=== PATIENT | male | born 1950 | race Caucasian/White ===

== ENCOUNTER → 2016-07-20 | Outpatient (CLI) | payer MEDICARE, BC ==
[2016-07-20 11:48] LABS: Basophils % (A) 0 %; CH 29.9; CHCM 33.5; Eosinophils # (A) 0.3 k/uL (0-0.7); Eosinophils % (A) 3 %; HCT 51.4 % (39.0-53.0); HDW 2.48; HGB 16.9 gm/dL (13.0-17.5); Luc # (Auto) 0.23; Luc % (Auto) 2; Lymphocytes % (A) 30 %; MCH 29.6 pg (25.0-35.0); MCV 89.8 fL (80.0-100.0); Mean Platelet Volume 6.5; Monocytes # (A) 0.6 k/uL (0-1.0); Monocytes % (A) 6 %; Neutrophils # (A) 5.8 k/uL (1.3-7.7); Neutrophils % (A) 58 %; RBC 5.73 m/uL (4.30-5.90); RDW 12.7 % (11.5-15.5); WBC (Perox) 10.12
[2016-07-20 12:00] LABS: ALT 40 U/L (21-72); AST 19 U/L (17-59); Alkaline Phosphatase 65 U/L (38-126); Anion Gap 9 mmol/L; Blood Urea Nitrogen 16 mg/dL (9-20); Calcium 9.5 mg/dL (8.4-10.2); Carbon Dioxide 24 mmol/L (22-30); Chloride 106 mmol/L (98-107); Glucose 134 mg/dL (74-99); Non-African American GFR(MDRD) >60 (>60 ml/min/1.73 sqM); Potassium 4.8 mmol/L (3.5-5.1); Sodium 139 mmol/L (137-145); Total Bilirubin 0.8 mg/dL (0.2-1.3); Total Protein 7.1 g/dL (6.3-8.2)
== END | disposition home or self-care (01) ==
LOC: LABWHC1 11:26
PROVIDERS: ATTEND Internal Medicine
DX: I10 Essential (primary) hypertension (principal)
CPT/HCPCS: 36415; 80053; 85025

== ENCOUNTER → 2016-08-06 | Outpatient (CLI) | payer MEDICARE, BC ==
[2016-08-06 15:35] LABS: ALT 35 U/L (21-72); AST 16 U/L (17-59); Cholesterol 209 mg/dL (<200); Glucose 106 mg/dL (74-99); HDL Cholesterol 42 mg/dL (40-60); Triglycerides 175 mg/dL (<150)
== END ==
LOC: LABWHC1 14:48
PROVIDERS: ATTEND Internal Medicine
DX: I25.10 Atherosclerotic heart disease of native coronary artery without angina pectoris (principal)
CPT/HCPCS: 36415; 80061; 82947; 84450; 84460

== ENCOUNTER → 2016-10-01 | Outpatient (CLI) | payer MEDICARE, BC ==
[2016-10-01 12:18] LABS: ALT 47 U/L (21-72); AST 24 U/L (17-59); Cholesterol 145 mg/dL (<200); Glucose 105 mg/dL (74-99); HDL Cholesterol 37 mg/dL (40-60); Triglycerides 206 mg/dL (<150)
== END | disposition home or self-care (01) ==
LOC: LABWHC1 11:21
PROVIDERS: ATTEND Internal Medicine
DX: I10 Essential (primary) hypertension (principal)
CPT/HCPCS: 36415; 80061; 82947; 84450; 84460

== ENCOUNTER → 2017-07-23 | Outpatient (CLI) | payer MEDICARE, BC ==
[2017-07-23 11:47] LABS: Cholesterol 187 mg/dL (<200); HDL Cholesterol 41 mg/dL (40-60); LDL Cholesterol,Calculated 104 mg/dL (0-99); Triglycerides 212 mg/dL (<150)
== END | disposition home or self-care (01) ==
LOC: LABWHC1 11:01
PROVIDERS: ATTEND Internal Medicine
DX: I25.110 Atherosclerotic heart disease of native coronary artery with unstable angina pectoris (principal)
CPT/HCPCS: 36415; 80061

== ENCOUNTER → 2019-04-30 | Outpatient (CLI) | payer MEDICARE, BC ==
[2019-04-30 18:22] LABS: ALT 22 U/L (10-49); AST 17 U/L (14-35); Albumin/Globulin Ratio 2.05 (1.60-3.17); Alkaline Phosphatase 66 U/L (41-126); Bilirubin, Conjugated <0.20 mg/dL (0.20-0.40); Chol/HDL Ratio 3.86; Cholesterol 108 mg/dL (0-200); Globulin 1.9 g/dL (1.6-3.3); LDL Cholesterol,Calculated 56.6 mg/dL (0.0-131.0); Total Bilirubin 0.3 mg/dL (0.3-1.2); Total Protein 5.8 g/dL (6.2-8.2)
== END ==
LOC: LABWHC1 12:05
PROVIDERS: ATTEND Internal Medicine
DX: I25.110 Atherosclerotic heart disease of native coronary artery with unstable angina pectoris (principal); Z95.2 Presence of prosthetic heart valve
CPT/HCPCS: 36415; 80061; 80076

== ENCOUNTER → 2020-12-25 | Outpatient (CLI) | payer MEDICARE, BC ==
--- NOTE | 2020-12-25 21:58 | CT ---
EXAMINATION TYPE: CT cervical spine wo con DATE OF EXAM: 12/25/2020 COMPARISON: None HISTORY: Neck pain x3 months CT DLP: 708.3 mGycm CONTRAST: None CT of the cervical spine is performed in the axial plane at 2 mm thick sections. Reconstructed image s in the coronal, and sagittal plane are reviewed on the computer. No acute fractures are evident. Vertebral body alignment is normal. Note is made of posterior longitudinal ligament calcification pos terior to the C4, C5 and C6 levels. Diffuse loss of disc height throughout the cervical spine. There is some more moderate narrowing of t he C5-6 C6-7 disc space. Vertebral body heights are preserved. No spinal canal stenosis is evident Facet hypertrophy is present at multiple levels. Uncovertebral joint hypertrophy is present throughout the cervical spine. At C2-3 level this has to s evere bilateral foraminal stenosis. Severe right and moderate to severe left foraminal stenosis prese nt at the C3-4 level. Severe right and moderate left C4-5 foraminal narrowing is present. Severe bila teral foraminal stenosis is present C5-6 and C6-7. IMPRESSIONS: 1. Severe foraminal stenosis due to uncovertebral joint hypertrophy at multiple levels discussed ab ove. 2 degenerative disc changes throughout the cervical spine greatest at C5-6 C6-7.
--- NOTE | 2020-12-25 22:01 | CT ---
EXAMINATION TYPE: CT thoracic spine wo con DATE OF EXAM: 12/25/2020 COMPARISON: None HISTORY: Back pain unspecified CT DLP: 1281.7 mGycm Automated exposure control for dose reduction was used. Contrast: None Technique: Axial images 3 mm thick sections. Reconstructed images in the coronal and sagittal plane. FINDINGS: Diffuse disc space narrowing is present. T7-T11 there is anterior vertebral spurring. There is a left paracentral endplate spur at T6 with mild anterior thecal sac compression. No AP spin al canal narrowing is evident. The vertebral body heights are preserved. There is slight exaggeration of the thoracic kyphosis. Scoliosis present with convexity to the right in the mid to upper thoracic spine. IMPRESSION: 1. MILD ENDPLATE SPURRING T6 WITH LEFT PARACENTRAL THECAL SAC COMPRESSION WITHOUT STENOSIS. 2. MULTILEVEL MILD DEGENERATIVE DISC HEIGHT LOSS. 3. MILD SCOLIOSIS AND KYPHOSIS
--- NOTE | 2020-12-25 22:10 | CT ---
EXAMINATION TYPE: CT lumbar spine wo con DATE OF EXAM: 12/25/2020 COMPARISON: None HISTORY: Back pain unspecified CT DLP: 1466.2 mGycm CONTRAST: None TECHNIQUE: CT of the lumbar spine is performed on a spiral scan at 3 mm thick sections. Reconstructed images are performed in the coronal and sagittal planes. FINDINGS: T12-L1: No focal disc herniation or significant disc bulge is evident. No spinal canal stenosis or neural foraminal stenosis is present. L1-L2: Broad-based disc bulge is present with moderate anterior thecal sac compression. No AP spinal canal stenosis present. Facet hypertrophy and some mild ligamentum flavum laxity is present. Some can al narrowing may be present. Severe left and right foraminal stenosis is present. L2-L3: Broad-based disc bulge is mild anterior thecal sac compression. Mild facet hypertrophy is pres ent. No spinal canal stenosis is present. Severe bilateral foraminal stenosis is present. L3-L4: Broad-based disc bulge is present. There is some narrowing of disc height. Anterior thecal sac flattening is present. No spinal canal stenosis is present. Severe foraminal narrowing is present bi laterally. Facet hypertrophy is present. L4-L5: There is narrowing through this disc level. Mild anterior thecal sac compression is present. F acet hypertrophy and congenitally short pedicles are present with ligamentum flavum laxity. This is c ontributing to severe spinal canal stenosis at this level. L5-S1: Residual disc bulge is not evident. Disc space narrowing is present. No spinal canal stenosis present. Severe foraminal narrowing is present. Vertebral alignment appears normal. There is a suggestion there may be a a abdominal aortic aneurysm. Within the archive within the field -of-view this measures at least 3.5 cm and may be slightly larger now. Additional evaluation with CT abdomen pelvis is recommended. IMPRESSION: 1. Abdominal aortic aneurysm is not excluded. Within the visualized portions this is at least 3.[address] abdomen and pelvis recommended for additional workup. 2. Degenerative disc changes with mild to moderate disc bulging discussed above. 3. Congenitally short pedicles disc bulging, ligamentum flavum laxity and facet hypertrophy at the L4 -5 levels contributing to severe spinal canal stenosis. 4. Some canal narrowing is also suspected to be present at the L1-2 level due to disc bulging and fac et hypertrophy. 5. Essentially severe foraminal stenosis throughout the lumbar spine due to residual disc bulge into the inferior foramen with congenitally short pedicles and facet hypertrophy throughout the lumbar spi ne.
== END | disposition home or self-care (01) ==
LOC: RADCTMAIN 06:26
PROVIDERS: ATTEND Family Medicine
DX: M48.061 Spinal stenosis, lumbar region without neurogenic claudication (principal); M51.26 Other intervertebral disc displacement, lumbar region; M51.36 Other intervertebral disc degeneration, lumbar region; M99.73 Connective tissue and disc stenosis of intervertebral foramina of lumbar region; M51.34 Other intervertebral disc degeneration, thoracic region; M50.323 Other cervical disc degeneration at C6-C7 level; M99.71 Connective tissue and disc stenosis of intervertebral foramina of cervical region; M47.816 Spondylosis without myelopathy or radiculopathy, lumbar region
CPT/HCPCS: 72125; 72128; 72131

== ENCOUNTER → 2021-01-09 | Outpatient (CLI) | payer MEDICARE, BC ==
--- NOTE | 2021-01-09 22:30 | CT ---
EXAMINATION TYPE: CT abdomen pelvis wo con DATE OF EXAM: 01/09/2021 COMPARISON: None HISTORY: 70-year-old male I71.4, abdominal aortic aneurysm. Back pain x6 months. CT DLP: 1295.5 mGycm. Automated exposure control for dose reduction was used. TECHNIQUE: Contiguous axial scanning of the abdomen and pelvis without IV contrast. Coronal and sagit sofie reconstructions performed. FINDINGS: Heart normal size without pericardial effusion. Some retained epicardial pacer leads are noted. Strea ky atelectasis at the posterior left lung base. Mild emphysematous change. Noncontrast appearance of the liver, gallbladder, adrenal glands, spleen, and pancreas show no gross abnormality by noncontrast CT. Several 1 cm cortical hypodensity medial left kidney too small for accurate CT characterization, prob able cyst. Extrarenal pelvis on the left. Some hilar vascular calcifications are noted. Right kidney shows some focal prominent cortical lobulations. These measure up to 1.6 cm lateral midp ole and 2.7 cm at the lower pole. Additional hypodense lesions at the lateral lower pole measure up to 2.3 and 1.3 cm, probable cysts b ut inadequately characterized on this noncontrast study. No dilated small bowel, free fluid, or free air. No mesenteric or retroperitoneal lymphadenopathy. Normal appendix. Oral contrast progressed to the cecum. There is mild to moderate stool burden. Redun dant sigmoid colon. No pericolonic inflammatory change. Moderate prostatic calcifications are present throughout the abdominal aorta and iliac arteries, more moderate to severe within the left common iliac artery. There is fusiform aneurysm infrarenal abdominal aorta measuring up to 4.5 cm. However, we note a thic kened aortic wall measuring up to 7 mm with mild periaortic strandy density and ill-definition. Patulous right greater than left inguinal canals. Moderate circumferential bladder wall thickening. P rostatomegaly of 5.2 cm wide. No abnormal fluid collection in the pelvis. Prominent right external il iac chain lymph nodes measures up to 1.1 cm, probably reactive/post inflammatory. Bones: Moderate degenerative change of the hips and left SI joint. Mild of the right SI joint. Baastr up's disease. Moderate degenerative disc disease L4-L5 and mild elsewhere throughout the lumbar spine . [facility] in the visualized lower thoracic spine. IMPRESSION: 1. Moderate atherosclerotic calcifications. More moderate to severe within the right common iliac ar katarzyna. In addition, there is an infrarenal AAA measuring up to 4.5 cm but we note a thickened wall wit h mild surrounding inflammation/fibrosis. Correlate for inflammatory AAA or autoimmune aortitis. Infe ctious aortitis considered less likely given the lack of air in the aortic wall. 2. Nonspecific right kidney lesions. Some of these may represent prominent cortical lobulations. Und erlying solid masses measuring up to 2.7 cm should be excluded. 3-6 month follow-up CT to ensure stab ility. 3. Prostatomegaly at 5.2 cm wide. Moderate circumferential bladder wall thickening could represent c hronic bladder wall hypertrophy or cystitis.
== END | disposition home or self-care (01) ==
LOC: RADCTMAIN 13:58
PROVIDERS: ATTEND Family Medicine
DX: I71.4 Abdominal aortic aneurysm, without rupture (principal); N40.0 Benign prostatic hyperplasia without lower urinary tract symptoms
CPT/HCPCS: 74176

== ENCOUNTER → 2021-04-11 | Outpatient (CLI) | payer MEDICARE, BC ==
--- NOTE | 2021-04-11 14:48 | CT ---
EXAMINATION TYPE: CT abdomen pelvis wo con DATE OF EXAM: 04/11/2021 HISTORY: Follow up aneurysm. CT DLP: 1038.9 mGycm. Automated Exposure Control for Dose Reduction was Utilized. TECHNIQUE: CT scan of the abdomen and pelvis is performed without oral or IV contrast. COMPARISON: CT abdomen and pelvis January 09, 2021 FINDINGS: Within the limitations of a non-contrast study, the following observations are made. LUNG BASES: Overlying sternal wires and mediastinal clips are partially imaged. There are retained ep icardial pacer wires redemonstrated. LIVER/GB: No significant abnormality is appreciated. PANCREAS: No significant abnormality is seen. SPLEEN: No significant abnormality is seen. ADRENALS: No significant abnormality is seen. KIDNEYS: Some cortical thinning and volume loss both kidneys greatest lower pole level anteriorly in both kidneys. Central vascular calcifications left kidney. No renal calculi or hydronephrosis on the left. There is now slightly larger 6 mm calcification calculus lower pole right kidney on axial image 46. There are adjacent small thin-walled cysts redemonstrated. No right-sided hydronephrosis. BOWEL: Suboptimal evaluation without enteric contrast. No suspicious dilatation is seen. GENITAL ORGANS: Prostate gland is stable measuring upper limits of normal in size. LYMPH NODES: No greater than 1cm abdominal or pelvic lymph nodes are appreciated. OSSEOUS STRUCTURES: Multilevel spurring in the thoracolumbar spine. Multilevel spinous process hypert rophy redemonstrated. Moderate axial joint space loss and spurring of both hips redemonstrated. OTHER: Moderate to severe calcified plaque of the infrarenal abdominal aorta extends into iliac branc h vessels. Persistent infrarenal AAA up to 4.3 cm on my measurement with anterior curvilinear soft ti ssue outside the rim calcification measuring up to 9 mm in thickness axial image 52. No significant i nterval change when accounting for technical differences. IMPRESSION: Stable infrarenal AAA up to 4.3 cm with stable curvilinear soft tissue and/or thickened w all anteriorly outside the calcified wall. Overall no significant change from prior CT.
== END ==
LOC: RADCTMAIN 13:05
PROVIDERS: ATTEND Family Medicine
DX: I71.4 Abdominal aortic aneurysm, without rupture (principal)
CPT/HCPCS: 74176

== ENCOUNTER 2024-04-03 13:13 | Inpatient (IN) | payer MEDICARE, BC ==
--- NOTE | 2024-04-03 13:58 | ED ---
General Adult HPI - General Source: patient, family, RN notes reviewed Mode of arrival: wheelchair Limitations: no limitations <Ct Keenan - Last Filed: 04/03/24 13:57> <Suhas Lester - Last Filed: 04/03/24 17:03> - General Stated complaint: L leg is numb Time Seen by Provider: 04/03/24 13:57 - History of Present Illness Initial comments: Quick note: 73-year-old male presenting to the ER with a chief complaint of left leg numbness. Patient states he has a known arterial blockage in his right leg and is following up with Dr. Morataya. He states about an hour and a half prior to arrival he started to experience left foot numbness which traveled up his legs. This has since resolved. He states when he woke up this morning he was feeling "dizzy". He does report an extensive cardiac history. He states he feels off balance and that he cannot stand up from the wheelchair. Denies any chest pain or shortness of breath currently. (Ct Keenan) Dictation was produced using [employer] dictation software. please excuse any grammatical, word or spelling errors. Chief Complaint: 73-year-old male with known popliteal arterial blockage presents to the emergency department with symptoms of numbness to his left foot History of Present Illness: Patient 73-year-old male he has known history of what he describes as 90% blockage to one of the arteries behind his knee. States that earlier today he had approximately 2-hour episode of numbness tingling to his left foot. States that came to the emergency department and since being in the ER his symptoms had resolved. Patient denies any other complaints. Denies any chest pain. No shortness of breath. The ROS documented in this emergency department record has been reviewed and confirmed by me. Those systems with pertinent positive or negative responses have been documented in the HPI. All other systems are other negative and/or noncontributory. (Suhas Lester) - Related Data Home Medications Medication Instructions Recorded Confirmed ALPRAZolam [Xanax] 0.5 mg PO BID PRN 04/03/24 04/03/24 Apixaban [Eliquis] 5 mg PO BID 04/03/24 04/03/24 Furosemide [Lasix] 20 mg PO Q48H 04/03/24 04/03/24 Losartan Potassium 50 mg PO HS 04/03/24 04/03/24 Meclizine [Antivert] 25 mg PO TID PRN 04/03/24 04/03/24 Rosuvastatin Calcium [Crestor] 40 mg PO HS 04/03/24 04/03/24 amLODIPine [Norvasc] 10 mg PO DAILY 04/03/24 04/03/24 Allergies Allergy/AdvReac Type Severity Reaction Status Date / Time clindamycin Allergy Rash/Hives Verified 04/03/24 15:54 Review of Systems ROS Other: All systems not noted in ROS Statement are negative. <Ct Keenan - Last Filed: 04/03/24 13:57> ROS Other: All systems not noted in ROS Statement are negative. <Suhas Lester - Last Filed: 04/03/24 17:03> ROS Statement: Those systems with pertinent positive or pertinent negative responses have been documented in the HPI. General Exam <Ct Keenan - Last Filed: 04/03/24 13:57> <Suhas Lester - Last Filed: 04/03/24 17:03> - General Exam Comments Initial Comments: Visual Physical Exam Vital signs reviewed General: Well-appearing, nontoxic, no acute distress. Head: Normocephalic, atraumatic Eyes: PERRLA, EOMI ENT: Airway patent Chest: Nonlabored breathing Skin: No visual rash, normal skin tone Neuro: Alert and oriented 3 Musculoskeletal: No gross abnormalities (Ct Keenan) PHYSICAL EXAM: General Impression: Alert and oriented x3, not in acute distress HEENT: Normocephalic atraumatic, extra-ocular movements intact, pupils equal and reactive to light bilaterally, mucous membranes moist. Cardiovascular: Heart regular rate and rhythm Chest: Able to complete full sentences, no retractions, no tachypnea Abdomen: abdomen soft, non-tender, non-distended, no organomegaly Musculoskeletal: Pulses present and equal in all extremities, no peripheral edema Motor: no focal deficits noted Neurological: CN II-XII grossly intact, no focal motor or sensory deficits noted Skin: Intact with no visualized rashes Psych: Normal affect and mood Extremity: Pale cold left foot with no DP pulse that is palpable (Suhas Lester) Course <Suhas Lester - Last Filed: 04/03/24 17:03> Vital Signs 04/03/24 13:56 Temperature 97.5 F L Pulse Rate 68 Respiratory 20 Rate Blood Pressure 131/76 O2 Sat by Pulse 100 Oximetry - Reevaluation(s) Reevaluation #1: 04/03/24 17:[address] Navarrete who will plan to do intervention (Suhas Lester) Reevaluation #2: 04/03/24 17:00 Also discussed with cardiology given patient's abnormal EKG elevated troponin. States that EKG is finding secondary to aneurysms (Suhas Lester) EKG Findings - EKG Comments: EKG Findings:: My EKG interpretation: Ventricular rate 68, sinus rhythm,. 251, QRS 90, QTc 423. No AR prolongation, no QTC prolongation. Diffuse ST elevation globally without any reciprocal changes. EKG is nonspecific <Suhas Lester - Last Filed: 04/03/24 17:03> Medical Decision Making <Ct Keenan - Last Filed: 04/03/24 13:57> - Lab Data Result diagrams: 04/03/24 14:33 04/03/24 14:33 <Suhas Lester - Last Filed: 04/03/24 17:03> - Medical Decision Making I performed the quick note portion of this chart. Electronically signed by Ct Keenan PA-C (Ct Keenan) Was pt. sent in by a medical professional or institution ([facility], [facility], urgent care, hospital, or [facility]cf...) When possible be specific @ -No Did you speak to anyone other than the patient for history (EMS, parent, family, police, friend...)? What history was obtained from this source @ -No Did you review nursing and triage notes (agree or disagree)? Why? @ -I reviewed and agree with nursing and triage notes Were old charts reviewed (outside hosp., previous admission, EMS record, old EKG, old radiological studies, urgent care reports/EKG's, ch[facility] records)? Report findings @ -No old charts were reviewed Differential Diagnosis (chest pain, altered mental status, abdominal pain women, abdominal pain men, vaginal bleeding, musculoskeletal, weakness, fever, dyspnea, syncope, headache, dizziness, GI bleed, back pain, seizure, CVA, palpatations, mental health)? @ -Ischemic limb, STEMI, cellulitis EKG interpreted by me (3pts min.). @ -See above X-rays interpreted by me (1pt min.). @ -No acute CT interpreted by me (1pt min.). @ -CT angiography with runoff shows occlusion of the left extremity arterial system U/S interpreted by me (1pt. min.). @ -None done What testing was considered but not performed or refused? (CT, X-rays, U/S, labs)? Why? @ -None What meds were considered but not given or refused? Why? @ -None Was smoking cessation discussed for >3mins.? @ -No Were there social determinants of health that impacted care today? How? (Homelessness, low income, unemployed, alcoholism, drug addiction, transportation, low edu. Level, literacy, decrease access to med. care, group home, rehab)? @ -No Was there de-escalation of care discussed even if they declined (Discuss DNR or withdrawal of care, Hospice)? DNR status @ -No What co-morbidities impacted this encounter? (DM, HTN, Smoking, COPD, CAD, Cancer, CVA, ARF, Chemo, Hep., AIDS, mental health diagnosis, sleep apnea, morbid obesity)? @ -Peripheral arterial disease Was patient admitted / discharged? Hospital course, mention meds given and route, prescriptions, significant lab abnormalities, going to OR and other pertinent info. @ -73-year-old male presents to the emergency department for symptoms of isch emic limb. States that his symptoms were episodic his leg is feeling better since being in the ER. Vital signs are stable. Laboratory evaluation obtained. Patient had elevated troponin of 0.334. EKG was concerning for ischemic findings. Patient was seen and evaluated the bedside along with his labs and EKG reviewed. No plans for any intervention at this time. CT angiography shows occlusion of the left lower extremity arterial system. Case discussed with vascular surgery requested patient be given 5000 bolus of IV heparin with plans for intervention today Did you discuss the management of the patient with other professionals (professionals i.e. , PA, [employer] [employer], lab, RT, psych nurse, bilingual social worker, programming coordinator, teacher, patrol community service officer, trimming caser)? Give summary @ -See above Was critical care preformed (if so, how long)? @ -Yes, 33 minutes Undiagnosed new problem with uncertain prognosis? @ -No Drug Therapy requiring intensive monitoring for toxicity (Heparin, Nitro, Insulin, Cardizem)? @ -No Were any procedures done? @ -No Diagnosis/symptom? Acute, or Chronic, or Acute on Chronic? Uncomplicated (without systemic symptoms) or Complicated (systemic symptoms)? @ -Ischemic limb Side effects of treatment? @ -No Exacerbation, Progression, or Severe Exacerbation? @ -No Poses a threat to life or bodily function? How? (Chest pain, [place], [place], pneumonia, PE, COPD, DKA, ARF, appy, cholecystitis, CVA, Diverticulitis, Homicidal, Suicidal, threat to staff... and all critical care pts) @ -yes (Suhas Lester) - Lab Data Lab Results 04/03/24 04/03/24 04/03/24 Range/Units 14:33 14:33 14:33 WBC 9.0 (3.8-10.6) k/uL RBC 4.90 (4.30-5.90) m/uL Hgb 14.3 (13.0-17.5) gm/dL Hct 43.2 (39.0-53.0) % MCV 88.1 (80.0-100.0) fL MCH 29.3 (25.0-35.0) pg MCHC 33.2 (31.0-37.0) g/dL RDW 12.9 (11.5-15.5) % Plt Count 195 (150-450) k/uL MPV 7.1 Neutrophils % 74 % Lymphocytes % 16 % Monocytes % 5 % Eosinophils % 1 % Basophils % 0 % Neutrophils # 6.6 (1.3-7.7) k/uL Lymphocytes # 1.5 (1.0-4.8) k/uL Monocytes # 0.4 (0-1.0) k/uL Eosinophils # 0.1 (0-0.7) k/uL Basophils # 0.0 (0-0.2) k/uL PT 12.1 (10.0-12.5) sec INR 1.1 (<1.2) APTT 32.8 H (22.0-30.0) sec Sodium 134 L (137-145) mmol/L Potassium 3.6 (3.5-5.1) mmol/L Chloride 102 (98-107) mmol/L Carbon Dioxide 24 (22-30) mmol/L Anion Gap 8 mmol/L BUN 11 (9-20) mg/dL Creatinine 0.83 (0.66-1.25) mg/dL Est GFR (CKD-EPI)AfAm >90 (>60 ml/min/1.73 sqM) Est GFR (CKD-EPI)NonAf 86 (>60 ml/min/1.73 sqM) Glucose 124 H (74-99) mg/dL Plasma Lactic Acid Miguel A (0.7-2.0) mmol/L Calcium 8.9 (8.4-10.2) mg/dL Magnesium 2.0 (1.6-2.3) mg/dL Total Bilirubin 0.9 (0.2-1.3) mg/dL AST 50 (17-59) U/L ALT 47 (4-49) U/L Alkaline Phosphatase 73 (38-126) U/L Troponin I (0.000-0.034) ng/mL Total Protein 7.2 (6.3-8.2) g/dL Albumin 3.6 (3.5-5.0) g/dL 04/03/24 04/03/24 Range/Units 14:33 14:42 WBC (3.8-10.6) k/uL RBC (4.30-5.90) m/uL Hgb (13.0-17.5) gm/dL Hct (39.0-53.0) % MCV (80.0-100.0) fL MCH (25.0-35.0) pg MCHC (31.0-37.0) g/dL RDW (11.5-15.5) % Plt Count (150-450) k/uL MPV Neutrophils % % Lymphocytes % % Monocytes % % Eosinophils % % Basophils % % Neutrophils # (1.3-7.7) k/uL Lymphocytes # (1.0-4.8) k/uL Monocytes # (0-1.0) k/uL Eosinophils # (0-0.7) k/uL Basophils # (0-0.2) k/uL PT (10.0-12.5) sec INR (<1.2) APTT (22.0-30.0) sec Sodium (137-145) mmol/L Potassium (3.5-5.1) mmol/L Chloride (98-107) mmol/L Carbon Dioxide (22-30) mmol/L Anion Gap mmol/L BUN (9-20) mg/dL Creatinine (0.66-1.25) mg/dL Est GFR (CKD-EPI)AfAm (>60 ml/min/1.73 sqM) Est GFR (CKD-EPI)NonAf (>60 ml/min/1.73 sqM) Glucose (74-99) mg/dL Plasma Lactic Acid Miguel A 1.7 (0.7-2.0) mmol/L Calcium (8.4-10.2) mg/dL Magnesium (1.6-2.3) mg/dL Total Bilirubin (0.2-1.3) mg/dL AST (17-59) U/L ALT (4-49) U/L Alkaline Phosphatase (38-126) U/L Troponin I 0.334 H* (0.000-0.034) ng/mL Total Protein (6.3-8.2) g/dL Albumin (3.5-5.0) g/dL Disposition <Ct Keenan - Last Filed: 04/03/24 13:57> Decision Time: 17:03 <Suhas Lester - Last Filed: 04/03/24 17:03> Clinical Impression: Ischemic leg Disposition: ADMITTED IP TO THIS [facility] Condition: Critical Referrals: Martin Flores DO [Primary Care Provider] - 1-2 days
--- NOTE | 2024-04-03 14:57 | XR ---
EXAMINATION TYPE: XR chest 2V DATE OF EXAM: 04/03/2024 2:52 PM COMPARISON: Previous CT study dated 04/13/2024. CLINICAL INDICATION: Male, 73 years old with history of Chest Pain; [facility] TECHNIQUE: XR chest 2V Frontal and lateral views of the chest. FINDINGS: Cardiomegaly. No acute focal consolidation. No sizable pleural effusion or appreciable pneumothorax. Focal eventrat ion of the right hemidiaphragm. Post surgical changes noted overlying the superior aspect of the cardiac silhouette. Prosthetic aorti c valve. Median sternotomy wires. Multilevel thoracic spine degenerative changes. IMPRESSION: No acute cardiopulmonary disease/process. [facility], , 04/03/2024 2:55 PM
[2024-04-03 15:02] LABS: ALT 47 U/L (4-49); AST 50 U/L (17-59); African American GFR (CKD) >90 (>60 ml/min/1.73 sqM); Albumin 3.6 g/dL (3.5-5.0); Alkaline Phosphatase 73 U/L (38-126); Anion Gap 8 mmol/L; Blood Urea Nitrogen 11 mg/dL (9-20); Calcium 8.9 mg/dL (8.4-10.2); Carbon Dioxide 24 mmol/L (22-30); Chloride 102 mmol/L (98-107); Glucose 124 mg/dL (74-99); Non-African American GFR(CKD) 86 (>60 ml/min/1.73 sqM); Potassium 3.6 mmol/L (3.5-5.1); Sodium 134 mmol/L (137-145); Total Bilirubin 0.9 mg/dL (0.2-1.3); Total Protein 7.2 g/dL (6.3-8.2)
[2024-04-03 15:05] LABS: Basophils % (A) 0 %; Eosinophils # (A) 0.1 k/uL (0-0.7); Eosinophils % (A) 1 %; HCT 43.2 % (39.0-53.0); HGB 14.3 gm/dL (13.0-17.5); Lymphocytes # (A) 1.5 k/uL (1.0-4.8); Lymphocytes % (A) 16 %; MCH 29.3 pg (25.0-35.0); MCHC 33.2 g/dL (31.0-37.0); MCV 88.1 fL (80.0-100.0); Mean Platelet Volume 7.1; Monocytes # (A) 0.4 k/uL (0-1.0); Monocytes % (A) 5 %; Neutrophils # (A) 6.6 k/uL (1.3-7.7); Neutrophils % (A) 74 %; Platelet Count 195 k/uL (150-450); RDW 12.9 % (11.5-15.5)
[2024-04-03 15:06] LABS: INR 1.1 (<1.2); Partial Thromboplastin Time 32.8 sec (22.0-30.0); Prothrombin Time 12.1 sec (10.0-12.5)
[2024-04-03] MEDS ORDERED: HEPARIN SODIUM 1,000 UN/ML (10ML VL) IV PRN (16:22)
--- NOTE | 2024-04-03 16:22 | P.CRDCN ---
History of Present Illness Consult date: 04/03/24 History of present illness: HISTORY OF PRESENTING ILLNESS 73-year-old male with past medical history of CAD status post CABG in 2017. Also prior history of PCI before the CABG. 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 He also has history of PAD and is being worked up by Dr. Morataya. He also has history of aortic valve stenosis status post surgical repair in 2017 along with his CABG. 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 He presents to the hospital because of concerns of paresthesias and numbness in his left lower extremity along with cold sensation. On admission He had mild elevation of troponin 0.3, ECG shows sinus rhythm with Q waves in anteroseptal leads along with evolving ST changes suggestive of possible apical and anterolateral wall old infarct with aneurysm. REVIEW OF SYSTEMS 14 point review of system is negative except what is mentioned above in HPI. PHYSICAL EXAMINATION Vital signs reviewed. Head: Normocephalic. Eyes: Sclerae nonicteric. Neck: Brisk carotid upstroke, no jugular venous distention. Lungs: Clear to auscultation. Heart: Regular rate and rhythm, S1-S2, systolic murmur is audible. Abdomen: Soft nontender, positive bowel sounds. Extremities: No edema, intact distal pulses. Left lower extremity is cool to touch, pulses are not palpable in dorsalis pedis and posterior tibial in left lower extremity. Febrile pulses noticed in the right lower extremity. Right lower extremity is warm to touch. Neuro: Alert, oritented, no focal deficits. Detailed neuro exam was not performed. ASSESSMENT Elevated troponin, likely type II NSTEMI Acute on chronic left lower limb ischemia, poikilothermia, pain, paresthesia, pale History of ischemic cardiomyopathy with apical aneurysm CAD status post PCI and CABG in 2017 Status post aortic valve replacement in 2017 surgical. Paroxysmal atrial fibrillation, currently sinus rhythm Obesity PLAN Obtain medical records from [facility]. Cardiac catheterization, cardi ology consult, last echocardiogram. Obtain updated echocardiogram Start aspirin 325 mg once. Start aspirin 81 mg from tomorrow. Continue IV heparin drip with bolus. Hold Eliquis Consult vascular surgery Await aortoiliac runoff results Charles Dietz MD, FACC, RPVI Thank you for allowing [facility] to participate in this patient's care. Feel free to reach out in case of any followup questions. Past Medical History Past Medical History: Coronary Artery Disease (CAD), CVA/TIA Additional Past Medical History / Comment(s): Decrease circulation left lower ext. History of Any Multi-Drug Resistant Organisms: None Reported Past Surgical History: Coronary Bypass/CABG, Heart Catheterization, Heart Catheterization With Stent Past Psychological History: No Psychological Hx Reported Smoking Status: Current every day smoker Past Alcohol Use History: None Reported Past Drug Use History: None Reported Medications and Allergies Home Medications Medication Instructions Recorded Confirmed Type ALPRAZolam [Xanax] 0.5 mg PO BID PRN 04/03/24 04/03/24 History Apixaban [Eliquis] 5 mg PO BID 04/03/24 04/03/24 History Furosemide [Lasix] 20 mg PO Q48H 04/03/24 04/03/24 History Losartan Potassium 50 mg PO HS 04/03/24 04/03/24 History Meclizine [Antivert] 25 mg PO TID PRN 04/03/24 04/03/24 History Rosuvastatin Calcium [Crestor] 40 mg PO HS 04/03/24 04/03/24 History amLODIPine [Norvasc] 10 mg PO DAILY 04/03/24 04/03/24 History Allergies Allergy/AdvReac Type Severity Reaction Status Date / Time clindamycin Allergy Rash/Hives Verified 04/03/24 15:54 Physical Exam Vitals: Vital Signs Temp Pulse Resp BP Pulse Ox 04/03/24 13:56 97.5 F L 68 20 131/76 100 Intake and Output 04/03/24 04/03/24 04/03/24 06:59 14:59 22:59 Other: Weight 98.883 kg Results 04/03/24 14:33 04/03/24 14:33 Cardiac Enzymes 04/03/24 04/03/24 Range/Units 14:33 14:33 AST 50 (17-59) U/L Troponin I 0.334 H* (0.000-0.034) ng/mL Coagulation 04/03/24 Range/Units 14:33 PT 12.1 (10.0-12.5) sec APTT 32.8 H (22.0-30.0) sec CBC 04/03/24 Range/Units 14:33 WBC 9.0 (3.8-10.6) k/uL RBC 4.90 (4.30-5.90) m/uL Hgb 14.3 (13.0-17.5) gm/dL Hct 43.2 (39.0-53.0) % Plt Count 195 (150-450) k/uL Comprehensive Metabolic Panel 04/03/24 Range/Units 14:33 Sodium 134 L (137-145) mmol/L Potassium 3.6 (3.5-5.1) mmol/L Chloride 102 (98-107) mmol/L Carbon Dioxide 24 (22-30) mmol/L BUN 11 (9-20) mg/dL Creatinine 0.83 (0.66-1.25) mg/dL Glucose 124 H (74-99) mg/dL Calcium 8.9 (8.4-10.2) mg/dL AST 50 (17-59) U/L ALT 47 (4-49) U/L Alkaline Phosphatase 73 (38-126) U/L Total Protein 7.2 (6.3-8.2) g/dL Albumin 3.6 (3.5-5.0) g/dL Intake and Output 04/03/24 04/03/24 04/03/24 06:59 14:59 22:59 Other: Weight 98.883 kg Patient Weight 04/04/24 06:59 Weight 98.883 kg 04/03/24 14:33 04/03/24 14:33
--- NOTE | 2024-04-03 16:25 | CT ---
EXAMINATION TYPE: CT angio tho/abd W Run Off DATE OF EXAM: 04/03/2024 4:03 PM COMPARISON: Previous study of 03/07/2023. CLINICAL INDICATION: Male, 73 years old with history of left lower ischemic limb; PHH, left lower leg numbness TECHNIQUE: Multiple thin slice sub-millimeter images were obtained after administration of contrast. 3-D reconstructed images and maximum intensity projection images were obtained. CT angio tho/abd W R un Off CT Contrast: Contrast used:100 ml mL of Isovue 370 without and with IV Contrast, CT DLP: 2756.2 mGycm, Automated exposure control for dose reduction was used. FINDINGS: Nonvascular: Partially visualized prosthetic aortic valve and coronary artery calcifications. No acute pathology i n partially visualized lower lungs. Liver unremarkable. Gallbladder unremarkable. No abnormal biliary ductal dilatation. Pancreas unremar kable. Spleen normal size and morphology. No suspicious adrenal gland nodule. Portal veins appear pat ent. A portable intraperitoneal or mesenteric adenopathy. Numerous bilateral renal parenchymal scarring de fects and hyperattenuating lesions in the left kidney likely reflecting sequelae of previous vascular insult/infarct. Additional simple cyst in the inferior right kidney. Renal vascular calcifications. No hydronephrosis or ureter. Bladder unremarkable. Prostate gland central calcifications. No significant free fluid or free air in abdomen/pelvis. No acute osseous abnormality. Multilevel thoracolumbar spinal degenerative changes. Vascular: Diffuse mixed calcified metastatic disease of the abdominal aorta is grossly stable fusiform infraren al aneurysmal dilatation measuring approximately 4.0 x 3.8 cm. Mild to moderate narrowing of the prox imal splenic artery and SMA due to calcified plaque. Moderate stenosis of the proximal right renal ar katarzyna origin. Moderate stenosis of the main left renal artery origin. Accessory renal artery supplying the bilateral inferior poles appear grossly patent. SANA likely occluded at the origin with reconstit ution. Short segment complete occlusion of the proximal left common iliac artery with reconstitution prior t o the bifurcation. Moderate stenosis of the bilateral common iliac arteries. Approximately 50-60% sandip nosis of the external iliac arteries due to mixed calcified plaque. Approximately 70-80% stenosis of the bilateral common femoral arteries due to callus 5 plaque. Multifocal varying degrees of moderate stenosis involving the bilateral superficial femoral arteries, most pronounced in the distal left sup erficial femoral artery (axial series image 374). Demonstration thrombosed left popliteal artery aneu rysm measuring approximately 2.1 x 2.0 cm. There is reconstitution of the distal left popliteal arter y. Diminutive caliber of the bilateral tibioperoneal trunks. Three-vessel flow at the level of the right mid calf. There is three-vessel runoff with faint opacifi cation of the right peroneal artery at the level of the ankle. There is diminutive three-vessel flow in the mid left lower extremity. Left anterior tibial and peron eal arteries appear occluded distally with single vessel runoff via the left posterior tibial artery. IMPRESSION: 1. 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 Distal left popliteal artery reconstitutes prior to origin of the left tibioperoneal trunk. Sing le left lower extremity runoff distally via the posterior tibial artery with complete occlusion of th e left anterior tibial and peroneal arteries. 2. Short segment complete occlusion of the proximal left common iliac artery with reconstitution tamika or to the bifurcation of the internal/external iliac arteries. 3. Fusiform infrarenal abdominal aortic aneurysm measuring 4.0 x 3.8 cm. 4. Diffuse mixed calcific and soft plaque throughout the iliac and femoral vessels with varying degr ees of narrowing as described above. [facility], , 04/03/2024 4:23 PM
[2024-04-03] MEDS ORDERED: NALOXONE 0.4 MG/ML 1 ML VIAL IV PRN (16:58)
[2024-04-03] MEDS: HEPARIN SODIUM 1,000 UN/ML (10ML VL) IV ONE (16:59)
[2024-04-03] MEDS: HEPARIN SOD,PORK IN 0.45% NACL 25,000 UNIT in 0.45% NACL 1 250ML.BAG IV SCH (17:00)
[2024-04-03] MEDS: SODIUM CHLORIDE 0.9% 1,000 ML IV SCH (17:03)
[2024-04-03] MEDS: HEPARIN SODIUM 1,000 UN/ML (10ML VL) IVP STA (17:03)
[2024-04-03] MEDS: ASPIRIN 81 MG PO SCH (17:08)
[2024-04-03] MEDS: SODIUM CHLORIDE 0.9% 1,000 ML IV ONE (18:51)
[2024-04-03] MEDS: MIDAZOLAM 2 MG/2 ML VIAL IVP ONE ×3 (19:14→20:32)
[2024-04-03] MEDS: fentaNYL (PF) 50 MCG/ML 2 ML AMP IVP ONE ×5 (19:14→20:26)
[2024-04-03] MEDS: LIDOCAINE 1% INJ 10MG/ML (20 ML MDV) SQ ONE (19:16)
[2024-04-03] MEDS: IOPAMIDOL-370 100ML BTL INJ ONE (20:19)
[2024-04-03] MEDS: HEPARIN SODIUM,PORCINE 10,000 UNIT in SODIUM CHLORIDE 0.9% 1,000 ML IRRIGATION ONE ×2 (20:19→22:18)
[2024-04-03] MEDS: LACTATED RINGERS 1,000 ML IV ONE ×2 (21:32→23:21)
[2024-04-03] MEDS: SODIUM CHLORIDE 0.9% 50 ML with ceFAZolin 2,000 MG IV ONE (21:32)
[2024-04-03] MEDS ORDERED: ceFAZolin 1 GM/50 ML BAG (PMX) ONE (21:52)
[2024-04-03] MEDS ORDERED: LIDOCAINE 1% INJ 10MG/ML (20 ML MDV) ONE (21:52)
[2024-04-03] MEDS ORDERED: PROPOFOL 10 MG/ML 20 ML VIAL IV ONE (21:52)
[2024-04-03] MEDS ORDERED: ROCURONIUM 10 MG/ML (5 ML VIAL) IV ONE (21:52)
[2024-04-03] MEDS ORDERED: HEPARIN SODIUM,PORCINE 10,000 UNIT/ML 1 ML VIAL ONE (21:52)
[2024-04-03] MEDS ORDERED: fentaNYL (PF) 50 MCG/ML 2 ML AMP ONE (21:52)
[2024-04-03] MEDS: ceFAZolin 1,000 MG in SODIUM CHLORIDE 0.9% 1,000 ML IRRIGATION ONE (22:19)
--- NOTE | 2024-04-03 23:12 | P.ANPRN ---
Procedure Note - Anesthesia - Invasive Line Right Arterial Line Time Out Performed: Yes Date of Procedure: 04/03/24 Time of Procedure: 21:30 Location of Patient: PreOp Preparation: Sterile Prep, Sterile Dressing Arterial Line Location: Radial Ultrasound Used: Yes Purpose - Visualization and Identification of Vasculature: Yes Needle Guage: 20-gauge 2 inch needle Image Stored and Saved: Yes Narrative: Invasive line placement per sterile protocol utilized. 1 attempt, Biopatch applied, secured with suture, and transparent Tegaderm applied
[2024-04-04] MEDS: LACTATED RINGERS 1,000 ML IV ONE (00:53)
[2024-04-04] MEDS: SODIUM CHLORIDE 0.9% 50 ML with ceFAZolin 2,000 MG IV ONE (01:36)
--- NOTE | 2024-04-04 02:24 | P.OP ---
Date of Procedure: 04/04/24 Preoperative Diagnosis: 1: Left common iliac artery occlusion. 2: Thrombosed left popliteal artery aneurysm. 3: Ischemia left lower extremity secondary to #1 and #2 above. Postoperative Diagnosis: 1: Left common iliac artery occlusion. 2: Thrombosed left popliteal artery aneurysm. 3: Ischemia left lower extremity secondary to #1 and #2 above. Procedure(s) Performed: 1: Right common femoral thromboendarterectomy with patch angioplasty. 2: Left common femoral thromboendarterectomy. 3: Femoral to femoral bypass utilizing 8 mm PTFE bypass graft. Anesthesia: GETA Surgeon: See Navarrete Estimated Blood Loss (ml): 200 Pathology: none sent Condition: stable Disposition: ICU Indications for Procedure: Patient is a 73-year-old male with a known history of popliteal artery aneurysm who up until this point had refused any intervention. He experienced acute onset of left foot pain and numbness at which time he presented to the emergency department. CTA was performed by the emergency room physicians demonstrating not only a left common iliac artery occlusion but a left popliteal artery aneurysm thrombosis. Originally the patient had been brought to the catheterization laboratory where attempt at crossing the left common iliac artery occlusion and initiation of tPA thrombolysis was attempted however I could not cross the common iliac artery occlusion and thus patient was offered femoral to femoral bypass. The right common iliac artery was highly stenotic however this was successfully balloon dilated and stented open with resulting excellent arterial inflow to the femoral level on the right. Description of Procedure: Patient was brought to the op room placed in supine position administered general inhalational anesthesia delivered by the department of anesthesiology. Simon catheter was placed to gravity drainage. Patient's abdomen inguinal area and anterior thigh areas were sterilely prepped and draped in the usual manner. Patient received 2 g of intravenously administered Ancef in the perioperative phase for prophylactic antibiotic coverage. Beginning on the left a skin incision was made in the left inguinal area encompassing the sheath that was left in place after attempted percutaneous intervention. The incision was deepened through subcutaneous tissues. Hemostasis was achieved using electrocautery. The femoral sheath was incised and the common femoral artery was identified. The sheath entry site into the ar katarzyna was dissected free investing tissues and a 6-0 Prolene pursestring suture was placed about the entry site of the sheath, the sheath was removed and the pursestring suture drawn closed. This provided good hemostasis. Eventually the common femoral as well as the origins of the profundus and superficial femoral arteries were dissected free of investing tissues and stroke with Vesseloops. There was no pulse at the femoral level and heavily calcified plaque was encountered. The wound was packed with antibiotic soaked gauze. A similar procedure was performed on the right side as described on the left. It was necessary to partially divide the inguinal ligament to gain enough exposure of the distal external iliac artery for successful encirclement of the vessel with vessel loop. The origin of the profundus and superficial femoral arteries were also encircled with Vesseloops. An 8 mm PTFE graft was selected and tunneled between the 2 incisions. The patient was systemically heparinized. The Vesseloops surrounding the right profundus and superficial femoral arteries were drawn closed in the iliac artery was clamped. Arteriotomy was made in the common femoral and extended with Marques Metzenbaums scissors. Heavily plaque burden was identified and it was felt that this would be useful for removal allowing inflow improvement into the profundus and superficial femoral segments. As such a thromboendarterectomy was performed. Bovine pericardial patch was then selected and patch angioplasty closure was performed with 5-0 Prolene suture placed in running fashion. Just prior to completion anastomotic line all vessels were flushed and no thrombus was retrieved. The anastomotic line was completed and flow was restored into the femoral system. Excellent pulse of the profundus as well as superficial femoral arteries was noted. It was decided to extend the incision slightly more inferiorly to allow exposure of a very soft and pliable segment of the superficial femoral artery to be used for inflow. As such Vesseloops were placed about the proximal superficial femoral artery and drawn closed. Arteriotomy was performed. Good backbleeding was identified. The artery was flushed with heparinized saline solution. The graft was spatulated match arteriotomy and end-to-side anastomosis was created between the graft and the [place] vessel. Just prior to completion anastomotic line the artery was flushed and no thrombus was retrieved. The anastomotic line was completed and flow restored through the femoral system as well as into the graft. Excellent pulsatile flow at the opposite end of the graft was identified. The graft was occluded and the anastomotic line was secured. The wound was then packed with antibiotic soaked gauze. Attention was turned to the left groin where the Vesseloops surrounding the profundus and superficial femoral and common femoral arteries were drawn closed. Arteriotomy was performed in a longitudinal manner to include the origin of the superficial femoral artery. Once again heavily calcified plaque was encountered and to improve inflow into the profundus thromboendarterectomy of the femoral segment was performed. Once completed this resulted in excellent backbleeding through the profundus. The graft was cut to the appropriate length and spatulated match arteriotomy and end-to-side anastomosis was created between the graft and the artery utilizing 5-0 Prolene suture. Just prior to completion anastomotic line backbleeding through the profundus and superficial femoral arteries were allowed to occur and the graft was flushed and no thrombus was retrieved. The anastomotic line was then completed and flow established into the left femoral system from the femoral to femoral bypass. Excellent pulse was noted in the superficial femoral artery distal to the anastomotic line. Both wounds were inspected for hemostasis and this was judged to be adequate. Both wounds were then irrigated with antibiotic-containing solution. Deep tissues in both wounds were closed with 2-0 Vicryl suture in multiple layers and skin was reapproximated skin tessa. Patient tolerated procedure well and was taken the recovery area in satisfactory and stable condition. Palpable dorsalis pedis and posterior tibial pulses noted on the right at the completion of the procedure. Both feet were pink with excellent capillary refill at the completion of the procedure. No pulse was palpable on the left dorsalis pedis or posterior tibial, consistent with popliteal artery occlusion.
[2024-04-04 02:26] LABS: Glucose,Whole Blood 101 mg/dL (70-110)
[2024-04-04] MEDS: ALTEPLASE 2 MG VIAL (CATHFLO) IV STA (02:35)
[2024-04-04] MEDS: LACTATED RINGERS 1,000 ML IV SCH (02:50)
[2024-04-04] MEDS: DEXAMETHASONE SOD PHOSPHATE 4 MG/ML 1 ML VIAL IV ONE (04:15)
[2024-04-04] MEDS: ONDANSETRON 4 MG/2 ML VIAL IVP ONE (04:16)
[2024-04-04] MEDS: ATORVASTATIN 40 MG TAB PO SCH (05:19)
[2024-04-04] MEDS: MORPHINE SULFATE 2 MG/ML SYRINGE IVP PRN (06:33)
[2024-04-04] MEDS ORDERED: HYDROmorphone 0.5 MG/0.5 ML SYRINGE IVP PRN (07:00)
[2024-04-04] MEDS: DOCUSATE 100 MG CAP PO SCH (08:08)
[2024-04-04] MEDS ORDERED: MECLIZINE 25 MG TAB PO PRN (10:36)
[2024-04-04] MEDS: ALPRAZolam 0.5 MG TAB PO PRN (11:55)
[2024-04-04] MEDS: HYDROcodone/APAP 5-325MG 1 EACH TAB PO PRN (11:55)
[2024-04-04] MEDS: SPIRONOLACTONE 25 MG TAB PO SCH (11:55)
[2024-04-04] MEDS: METOPROLOL SUCCINATE (ER) 25 MG TAB.ER.24H PO SCH (11:55)
[2024-04-04] MEDS: HEPARIN SOD,PORK IN 0.45% NACL 25,000 UNIT in 0.45% NACL 1 250ML.BAG IV SCH (12:28)
[2024-04-04 12:29] LABS: Basophils % (A) 0 %; Eosinophils # (A) 0.1 k/uL (0-0.7); Eosinophils % (A) 1 %; HGB 12.3 gm/dL (13.0-17.5); Lymphocytes # (A) 2.1 k/uL (1.0-4.8); Lymphocytes % (A) 18 %; MCH 28.9 pg (25.0-35.0); MCHC 32.5 g/dL (31.0-37.0); MCV 88.8 fL (80.0-100.0); Mean Platelet Volume 7.1; Monocytes # (A) 0.6 k/uL (0-1.0); Monocytes % (A) 5 %; Neutrophils # (A) 8.5 k/uL (1.3-7.7); Neutrophils % (A) 73 %; Platelet Count 188 k/uL (150-450); RBC 4.27 m/uL (4.30-5.90); WBC 11.7 k/uL (3.8-10.6)
[2024-04-04 13:00] LABS: INR 1.1 (<1.2); Partial Thromboplastin Time 29.1 sec (22.0-30.0)
--- NOTE | 2024-04-04 13:55 | P.HPIM ---
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 In the ED patient's vitals were stable. CBC was unremarkable with WBCs 9.0, hemoglobin 14.3, platelet 195. INR 1.1. BMP was unremarkable. Troponin was elevated 0.334. EKG showed sinus rhythm with Q waves in the anteroseptal leads along with evolving ST changes suggestive of possible apical and anterolateral wall old infarct with aneurysm. Vascular surgery was consulted in the ED, patient underwent right common femoral thromboendarterectomy with patch angioplasty, left common femoral thromb oendarterectomy and femoral to femoral bypass overnight on 04/04/2024. REVIEW OF SYSTEMS: CONSTITUTIONAL: No fever, no malaise, no fatigue. HEENT: No recent visual problems or hearing problems. Denied any sore throat. CARDIOVASCULAR: No chest pain, orthopnea, PND, no palpitations, no syncope. PULMONARY: No shortness of breath, no cough, no hemoptysis. GASTROINTESTINAL: No diarrhea, no nausea, no vomiting, no abdominal pain. NEUROLOGICAL: No headaches, no weakness, no numbness. HEMATOLOGICAL: Denies any bleeding or petechiae. GENITOURINARY: Denies any burning micturition, frequency, or urgency. MUSCULOSKELETAL/RHEUMATOLOGICAL: Denies any joint pain, swelling, or any muscle pain. ENDOCRINE: Denies any polyuria or polydipsia. The rest of the 14-point review of systems is negative. PHYSICAL EXAMINATION: GENERAL: The patient is A&O x3, NAD HEENT: EOMI, Sclerae anicteric, Moist Mucous membranes Neck: Supple, Non tender, No JVD PULMONARY: Equal breath souds B/L, No wheezing, No crackles. CARDIOVASCULAR: S1, S2 present. + murmurs, rubs, or gallops. ABDOMEN: Soft, nontender, nondistended, normoactive bowel sounds. No guarding or rebound tenderness. MUSCULOSKELETAL: No edema, No cyanosis. No clubbing. Normal ROM. Intact peripheral pulses. EXTREMITIES: No cyanosis, clubbing, or pedal edema. NEUROLOGICAL: CN 2-12 grossly intact. 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 Monitor closely with neurovascular checks. Aspirin, statin Heparin drip, holding Eliquis. Elevated troponin: Likely type II KS History of ischemic cardiomyopathy with apical aneurysm: CAD status post PCI, CABG in 2017 Status post aortic valve replacement in 2017surgical Paroxysmal atrial fibrillation: Morbid obesity: Obtain medical record from [facility] Obtain echocardiogram Aspirin, statin, Toprol-XL, Aldactone, Entresto Anticoagulation with heparin drip, holding Eliquis. Cardiology consulted and following. DVT prophylaxis Anticoagulated Monitor vital signs and labs Labs and medication were reviewed. Continue same treatment. Further recommendations as per clinical course of the patient Dictation was produced using [employer] dictation software. please excuse any grammatical, word or spelling errors. Past Medical History Past Medical History: Coronary Artery Disease (CAD), CVA/TIA Additional Past Medical History / Comment(s): Decrease circulation left lower ext. History of Any Multi-Drug Resistant Organisms: None Reported Past Surgical History: Coronary Bypass/CABG, Heart Catheterization, Heart Catheterization With Stent Date of Last Stent Placement:: 2011 Past Psychological History: No Psychological Hx Reported Smoking Status: Current every day smoker Past Alcohol Use History: None Reported Past Drug Use History: None Reported Medications and Allergies Home Medications Medication Instructions Recorded Confirmed Type ALPRAZolam [Xanax] 0.5 mg PO BID PRN 04/03/24 04/03/24 History Apixaban [Eliquis] 5 mg PO BID 04/03/24 04/03/24 History Furosemide [Lasix] 20 mg PO Q48H 04/03/24 04/03/24 History Losartan Potassium 50 mg PO HS 04/03/24 04/03/24 History Meclizine [Antivert] 25 mg PO TID PRN 04/03/24 04/03/24 History Rosuvastatin Calcium [Crestor] 40 mg PO HS 04/03/24 04/03/24 History amLODIPine [Norvasc] 10 mg PO DAILY 04/03/24 04/03/24 History Allergies Allergy/AdvReac Type Severity Reaction Status Date / Time clindamycin Allergy Rash/Hives Verified 04/03/24 15:54 Physical Exam Vitals: Vital Signs Temp Pulse Pulse Resp BP BP BP 04/04/24 11:50 98.4 F 74 16 129/59 04/04/24 10:00 68 20 112/53 04/04/24 09:00 70 28 H 121/57 04/04/24 08:00 98.1 F 70 13 129/59 04/04/24 07:55 04/04/24 07:00 65 12 106/55 04/04/24 06:30 71 18 122/59 04/04/24 06:00 67 11 L 109/55 04/04/24 05:30 70 18 98/61 04/04/24 05:00 71 20 123/59 04/04/24 04:30 73 18 119/64 04/04/24 04:00 99.7 F H 73 27 H 04/04/24 03:50 78 23 114/61 04/04/24 03:40 81 19 111/77 04/04/24 03:30 81 11 L 04/04/24 03:20 99.1 F 86 19 147/82 04/04/24 03:10 89 23 04/04/24 03:00 90 27 H 04/04/24 02:50 29 H 04/04/24 02:40 99 37 H 04/04/24 02:35 04/04/24 02:30 91 41 H 139/85 04/03/24 18:19 97.8 F 63 18 101/61 04/03/24 18:00 63 21 115/64 04/03/24 17:00 63 15 107/63 04/03/24 16:00 60 16 101/71 04/03/24 15:00 61 20 123/87 04/03/24 14:36 66 21 134/64 04/03/24 13:56 97.5 F L 68 20 131/76 Pulse Ox FiO2 04/04/24 11:50 96 04/04/24 10:00 96 04/04/24 09:00 94 L 04/04/24 08:00 96 04/04/24 07:55 95 04/04/24 07:00 98 04/04/24 06:30 97 04/04/24 06:00 98 04/04/24 05:30 97 04/04/24 05:00 97 04/04/24 04:30 98 40 04/04/24 04:00 98 50 04/04/24 03:50 99 04/04/24 03:40 99 04/04/24 03:30 100 04/04/24 03:20 100 50 04/04/24 03:10 99 04/04/24 03:00 97 04/04/24 02:50 98 04/04/24 02:40 96 04/04/24 02:35 50 04/04/24 02:30 95 50 04/03/24 18:19 95 04/03/24 18:00 96 04/03/24 17:00 95 04/03/24 16:00 96 04/03/24 15:00 95 04/03/24 14:36 95 04/03/24 13:56 100 Intake and Output 04/03/24 04/04/24 04/04/24 22:59 06:59 14:59 Intake Total 1152 1830 116 Output Total 835 445 Balance 1152 995 -329 Intake: IV 1152 1830 116 Lactated Ringers 1,000 ml 80 60 @ 20 mls/hr IV .Q24H [facility] Rx#:[id number] Normal Saline Pressure 6 Bag ceFAZolin 1,000 mg In 50 Sodium Chloride 0.9% 50 ml @ 100 mls/hr IVPB Q8HR [facility] Rx#:[id number] Output: Urine 635 445 Uretheral (Simon) 100 Estimated Blood Loss 200 Other: Voiding Method Indwelling Catheter Indwelling Catheter Weight 101 kg ABP, PAP, CO, CI - Last 8 Hours Arterial Blood Pressure 119/48 Arterial Blood Pressure 116/54 Arterial Blood Pressure 134/58 Arterial Blood Pressure 96/37 Arterial Blood Pressure 97/41 Arterial Blood Pressure 105/38 Results CBC & Chem 7: 04/04/24 12:09 04/03/24 14:33 Labs: Abnormal Lab Results - Last 24 Hours (Table) 04/03/24 04/03/24 04/03/24 Range/Units 14:33 14:33 14:33 WBC (3.8-10.6) k/uL RBC (4.30-5.90) m/uL Hgb (13.0-17.5) gm/dL Hct (39.0-53.0) % Neutrophils # (1.3-7.7) k/uL APTT 32.8 H (22.0-30.0) sec Sodium 134 L (137-145) mmol/L Glucose 124 H (74-99) mg/dL Troponin I 0.334 H* (0.000-0.034) ng/mL 04/04/24 Range/Units 12:09 WBC 11.7 H (3.8-10.6) k/uL RBC 4.27 L (4.30-5.90) m/uL Hgb 12.3 L (13.0-17.5) gm/dL Hct 38.0 L (39.0-53.0) % Neutrophils # 8.5 H (1.3-7.7) k/uL APTT (22.0-30.0) sec Sodium (137-145) mmol/L Glucose (74-99) mg/dL Troponin I (0.000-0.034) ng/mL Thrombosis Risk Factor Assmnt - Choose All That Apply Any of the Below Risk Factors Present?: Yes Each Factor Represents 1 point: History of prior major surgery (<1month), Obesity (BMI >25) Each Risk Factor Represents 2 Points: Patient confined to bed Each Risk Factor Represents 3 Points: Age 75 years or older Thrombosis Risk Factor Assessment Total Risk Factor Score: 7 Thrombosis Risk Factor Assessment Level: High Risk
--- NOTE | 2024-04-04 14:00 | P.PN ---
Subjective Progress Note Date: 04/04/24 Principal diagnosis: Left lower extremity limb ischemia 73-year-old gentleman who underwent femorofemoral bypass after attempted revascularization of the left lower extremity due to left foot ischemia was seen in the ICU. He states he is doing well and denies any worsening pain in his groins or left lower extremity. He states his pain from previous has resolved. He has gotten up and moved and walked to and from the bathroom without issue. He denies any fevers, chills, chest pain or shortness of breath. Objective - Vital Signs Vital signs: Vital Signs Temp 98.4 F 04/04/24 11:50 Pulse 74 04/04/24 11:50 Resp 16 04/04/24 11:50 BP 129/59 04/04/24 11:50 Pulse Ox 96 04/04/24 11:50 FiO2 40 04/04/24 04:30 Intake & Output 04/03/24 04/04/24 04/04/24 18:59 06:59 18:59 Intake Total 100 2882 116 Output Total 835 445 Balance 100 2047 -329 Weight 98.883 kg 101 kg Intake: IV 100 2882 116 Lactated Ringers 1,000 ml 80 60 @ 20 mls/hr IV .Q24H [facility] Rx#:[id number] Normal Saline Pressure 6 Bag ceFAZolin 1,000 mg In 50 Sodium Chloride 0.9% 50 ml @ 100 mls/hr IVPB Q8HR [facility] Rx#:[id number] Output: Urine 635 445 Uretheral (Simon) 100 Estimated Blood Loss 200 Other: Voiding Method Indwelling Catheter Indwelling Catheter ABP, PAP, CO, CI - Last Documented Arterial Blood Pressure 119/48 - Exam Incision sites are dry, no hematoma, mild tenderness to palpation. Palpable femoral pulse. Multiphasic PT signal on the left with good capillary refill - Constitutional General appearance: Present: average body habitus, cooperative, morbidly obese - EENT Eyes: Present: PERRLA - Labs CBC & Chem 7: 04/04/24 12:09 04/03/24 14:33 Labs: Abnormal Lab Results - Last 24 Hours (Table) 04/03/24 04/03/24 04/03/24 Range/Units 14:33 14:33 14:33 WBC (3.8-10.6) k/uL RBC (4.30-5.90) m/uL Hgb (13.0-17.5) gm/dL Hct (39.0-53.0) % Neutrophils # (1.3-7.7) k/uL APTT 32.8 H (22.0-30.0) sec Sodium 134 L (137-145) mmol/L Glucose 124 H (74-99) mg/dL Troponin I 0.334 H* (0.000-0.034) ng/mL 04/04/24 Range/Units 12:09 WBC 11.7 H (3.8-10.6) k/uL RBC 4.27 L (4.30-5.90) m/uL Hgb 12.3 L (13.0-17.5) gm/dL Hct 38.0 L (39.0-53.0) % Neutrophils # 8.5 H (1.3-7.7) k/uL APTT (22.0-30.0) sec Sodium (137-145) mmol/L Glucose (74-99) mg/dL Troponin I (0.000-0.034) ng/mL Assessment and Plan Assessment: acute critical limb ischemia of the left lower extremity postop day 0 femoral-femoral bypass Elevated troponin Plan: okay to downgrade to telemetry floor. patient is not having any cardiac symptoms therefore we will obtain another troponin at next blood draw. Okay to increase activity and ambulate. Physical Therapy ordered
--- NOTE | 2024-04-04 15:13 | P.PN ---
Subjective Progress Note Date: 04/04/24 HISTORY OF PRESENTING ILLNESS 73-year-old male with past medical history of CAD status post CABG in 2017. Also prior history of PCI before the CABG. 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 He also has history of PAD and is being worked up by Dr. Morataya. He also has history of aortic valve stenosis status post surgical repair in 2017 along with his CABG. 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 He presents to the hospital because of concerns of paresthesias and numbness in his left lower extremity along with cold sensation. On admission He had mild elevation of troponin 0.3, ECG shows sinus rhythm with Q waves in anteroseptal leads along with evolving ST changes suggestive of possi ble apical and anterolateral wall old infarct with aneurysm. Progress note April 04 Patient underwent thromboembolectomy of bilateral internal iliacs and underwent left femoral to femoral bypass with Dr. Antony last night. Currently managed in ICU. Denies any active chest pain chest pressure. PHYSICAL EXAMINATION Vital signs reviewed. Head: Normocephalic. Eyes: Sclerae nonicteric. Neck: Brisk carotid upstroke, no jugular venous distention. Lungs: Clear to auscultation. Heart: Regular rate and rhythm, S1-S2, systolic murmur is audible. Abdomen: Soft nontender, positive bowel sounds. Extremities: No edema, intact distal pulses. Left lower extremity is cool to touch, pulses are not palpable in dorsalis pedis and posterior tibial in left lower extremity. Febrile pulses noticed in the right lower extremity. Right lower extremity is warm to touch. Neuro: Alert, oritented, no focal deficits. Detailed neuro exam was not performed. ASSESSMENT Elevated troponin, likely type II NSTEMI Acute on chronic left lower limb ischemia, poikilothermia, pain, paresthesia, pale History of ischemic cardiomyopathy with apical aneurysm CAD status post PCI and CABG in 2017 Status post aortic valve replacement in 2017 surgical. Paroxysmal atrial fibrillation, currently sinus rhythm Obesity PLAN Obtain medical records from [facility]. Cardiac catheterization, cardiology consult, last echocardiogram. Obtain updated echocardiogram Continue aspirin 81 mg, IV heparin drip, hold Eliquis Continue GDMT. Uptitrate as blood pressure and heart rate tolerates. If our echocardiogram shows new findings as compared to [facility] and cardiac catheterization surgical vascularization report shows any potential of further vascularization, plan for cardiac catheterization. Objective - Vital Signs Vital signs: Vital Signs Temp 98.4 F 04/04/24 11:50 Pulse 74 04/04/24 11:50 Resp 16 04/04/24 11:50 BP 129/59 04/04/24 11:50 Pulse Ox 96 04/04/24 11:50 FiO2 40 04/04/24 04:30 Intake & Output 04/03/24 04/04/24 04/04/24 18:59 06:59 18:59 Intake Total 100 2882 116 Output Total 835 445 Balance 100 2047 -329 Weight 98.883 kg 101 kg Intake: IV 100 2882 116 Lactated Ringers 1,000 ml 80 60 @ 20 mls/hr IV .Q24H [facility] Rx#:[id number] Normal Saline Pressure 6 Bag ceFAZolin 1,000 mg In 50 Sodium Chloride 0.9% 50 ml @ 100 mls/hr IVPB Q8HR [facility] Rx#:[id number] Output: Urine 635 445 Uretheral (Simon) 100 Estimated Blood Loss 200 Other: Voiding Method Indwelling Catheter Indwelling Catheter ABP, PAP, CO, CI - Last Documented Arterial Blood Pressure 119/48 - Labs CBC & Chem 7: 04/04/24 12:09 04/03/24 14:33 Labs: Abnormal Lab Results - Last 24 Hours (Table) 04/03/24 04/04/24 Range/Units 14:33 12:09 WBC 11.7 H (3.8-10.6) k/uL RBC 4.27 L (4.30-5.90) m/uL Hgb 12.3 L (13.0-17.5) gm/dL Hct 38.0 L (39.0-53.0) % Neutrophils # 8.5 H (1.3-7.7) k/uL Troponin I 0.334 H* (0.000-0.034) ng/mL
[2024-04-04] MEDS: SACUBITRIL/VALSARTAN 24 MG-26 MG TABLET PO SCH (20:48)
[2024-04-04] MEDS ORDERED: LOSARTAN 50 MG TAB PO SCH (21:00)
[2024-04-04] MEDS ORDERED: NON FORMULARY DRUG (Rosuvastatin Calcium [Crestor] 40 MG Tablet) PO SCH (21:00)
[2024-04-05 05:45] LABS: Basophils % (A) 0 %; Eosinophils # (A) 0.1 k/uL (0-0.7); Eosinophils % (A) 1 %; HCT 36.4 % (39.0-53.0); HGB 11.7 gm/dL (13.0-17.5); Lymphocytes % (A) 15 %; MCH 28.8 pg (25.0-35.0); MCHC 32.2 g/dL (31.0-37.0); MCV 89.3 fL (80.0-100.0); Mean Platelet Volume 6.7; Monocytes # (A) 0.6 k/uL (0-1.0); Monocytes % (A) 5 %; Neutrophils # (A) 9.9 k/uL (1.3-7.7); Neutrophils % (A) 76 %; Platelet Count 184 k/uL (150-450); RBC 4.08 m/uL (4.30-5.90); RDW 13.1 % (11.5-15.5); WBC 13.1 k/uL (3.8-10.6)
[2024-04-05 05:51] LABS: INR 1.2 (<1.2); Prothrombin Time 12.7 sec (10.0-12.5)
[2024-04-05 06:05] LABS: African American GFR (CKD) >90 (>60 ml/min/1.73 sqM); Anion Gap 9 mmol/L; Blood Urea Nitrogen 9 mg/dL (9-20); Calcium 7.9 mg/dL (8.4-10.2); Carbon Dioxide 18 mmol/L (22-30); Chloride 105 mmol/L (98-107); Glucose 117 mg/dL (74-99); Non-African American GFR(CKD) 84 (>60 ml/min/1.73 sqM); Potassium 3.7 mmol/L (3.5-5.1); Sodium 132 mmol/L (137-145)
[2024-04-05] MEDS: HEPARIN SODIUM 1,000 UN/ML (10ML VL) IV PRN (07:50)
[2024-04-05] MEDS: amLODIPine 10 MG TAB PO SCH (08:34)
[2024-04-05] MEDS: APIXABAN 5 MG TAB PO SCH ×2 (08:34→12:39)
--- NOTE | 2024-04-05 11:00 | P.PN ---
Subjective Progress Note Date: 04/05/24 Principal diagnosis: Left lower extremity limb ischemia 73-year-old gentleman who underwent femoral-femoral bypass after attempted revascularization of left lower extremity due to left foot ischemia. He is currently sitting up at the side of the bed. He is complaining of pain in his groins. However states that left lower extremity pain has improved, actually resolved. Patient states he is having some shortness of breath and does have a cough. He has been followed by respiratory therapy.. Denies any chest pain currently. He is afebrile. Oxygen saturation 95% at room air. Patient does have a history of obstructive sleep apnea with no CPAP machine at bedside. Toda y's labs WBC 13.1 hemoglobin 11.7 platelet count 184,000 sodium 132 potassium 3.7 BUN 9 creatinine 0.8. Patiently still currently on a heparin drip per cardiology. Objective - Vital Signs Vital signs: Vital Signs Temp 98.2 F 04/05/24 08:00 Pulse 85 04/05/24 08:00 Resp 20 04/05/24 08:00 BP 115/58 04/05/24 08:00 Pulse Ox 95 04/05/24 08:00 FiO2 40 04/04/24 04:30 Intake & Output 04/04/24 04/05/24 04/05/24 18:59 06:59 18:59 Intake Total 116 489 267.236 Output Total 620 550 Balance -504 -61 267.236 Weight 100.7 kg Intake: IV 116 300 Lactated Ringers 1,000 ml 60 300 @ 20 mls/hr IV .Q24H [facility] Rx#:[id number] Normal Saline Pressure 6 Bag ceFAZolin 1,000 mg In 50 Sodium Chloride 0.9% 50 ml @ 100 mls/hr IVPB Q8HR [facility] Rx#:[id number] Intake, IV Titration 189 149.236 Amount Heparin Sod,Pork in 0.45% 69 149.236 NaCl 25,000 unit In 0.45 % NaCl 1 250ml.bag @ 9. 901 UNITS/KG/HR 10 mls/hr IV .Q24H [facility] Rx#: [id number] Lactated Ringers 1,000 ml 120 @ 20 mls/hr IV .Q24H [facility] Rx#:[id number] Oral 118 Output: Urine 620 550 Uretheral (Simon) 100 Other: Voiding Method Urinal Urinal Urinal # Voids 1 ABP, PAP, CO, CI - Last Documented Arterial Blood Pressure 119/48 - Exam General appearance: The patient is alert, oriented, appears in no acute distress. HET: Head is normocephalic and atraumatic. Pupils are equal and reactive. Neck: Supple. Heart: Regular. Lungs: Equal expansion, normal respiratory effort. Abdomen: Soft, nontender, nondistended. Extremities: Normal skin color and turgor. Bilateral groins with dressings clean dry and intact. Multiphasic PT signal. Monophasic DP signal. Neurological: No focal deficits. Strength and sensation are grossly intact. - Labs CBC & Chem 7: 04/05/24 05:28 04/05/24 05:28 Labs: Abnormal Lab Results - Last 24 Hours (Table) 04/04/24 04/04/24 04/04/24 Range/Units 12:09 18:30 18:30 WBC 11.7 H (3.8-10.6) k/uL RBC 4.27 L (4.30-5.90) m/uL Hgb 12.3 L (13.0-17.5) gm/dL Hct 38.0 L (39.0-53.0) % Neutrophils # 8.5 H (1.3-7.7) k/uL PT (10.0-12.5) sec INR (<1.2) APTT 37.3 H (22.0-30.0) sec Sodium (137-145) mmol/L Carbon Dioxide (22-30) mmol/L Glucose (74-99) mg/dL Calcium (8.4-10.2) mg/dL Troponin I 0.291 H* (0.000-0.034) ng/mL 04/05/24 04/05/24 04/05/24 Range/Units 05:28 05:28 05:28 WBC 13.1 H (3.8-10.6) k/uL RBC 4.08 L (4.30-5.90) m/uL Hgb 11.7 L (13.0-17.5) gm/dL Hct 36.4 L (39.0-53.0) % Neutrophils # 9.9 H (1.3-7.7) k/uL PT 12.7 H (10.0-12.5) sec INR 1.2 H (<1.2) APTT (22.0-30.0) sec Sodium 132 L (137-145) mmol/L Carbon Dioxide 18 L (22-30) mmol/L Glucose 117 H (74-99) mg/dL Calcium 7.9 L (8.4-10.2) mg/dL Troponin I (0.000-0.034) ng/mL 04/05/24 Range/Units 05:28 WBC (3.8-10.6) k/uL RBC (4.30-5.90) m/uL Hgb (13.0-17.5) gm/dL Hct (39.0-53.0) % Neutrophils # (1.3-7.7) k/uL PT (10.0-12.5) sec INR (<1.2) APTT 42.8 H (22.0-30.0) sec Sodium (137-145) mmol/L Carbon Dioxide (22-30) mmol/L Glucose (74-99) mg/dL Calcium (8.4-10.2) mg/dL Troponin I (0.000-0.034) ng/mL Assessment and Plan Assessment: 1. Acute critical limb ischemia of left lower extremity 2. Postop day #1 for femorofemoral bypass 3. Elevated troponin 4. History of ischemic cardiomyopathy 5. Coronary artery disease status post PCI and CABG 6. Atrial fibrillation Plan: 1. PT and OT on consult. Encourage ambulation 2. Will change morphine to Dilaudid and evaluate for pain control 3. Incentive spirometer ordered to bedside 4. Continue with recommendations from cardiology 5. Recommend Plavix or aspirin with anticoagulation on discharge Thank you for this consultation, we will continue to follow. The impression and plan of care has been dictated as directed. Dr. Morataya I performed a history and examination of this patient, discussed the same with the dictator. I agree with the dictator's note ,documented as a scribe. Any additional findings or plans will be noted.
--- NOTE | 2024-04-05 12:09 | CA ---
Transthoracic Echo Report Name: Dimitrios Obrien Age: 73 Gender: M : 1950 Exam Date: 04/05/2024 09:29 Exam Location: [facility] Ht (in): 67 Wt (lb): 222 Ordering Physician: Charles Dietz MD ([id number]) Attending/Referring Phys: Gilberto Morataya DO Hardware Engineer Mami Contreras RDCS Procedure CPT: Indications: EF%, previous CABG/stents Cardiac Hx: Technical Quality: Technically difficult study Contrast 1: Definity Total Dose (mL): 1 Contrast 2: Total Dose (mL): MEASUREMENTS (Male / Female) Normal Values 2D ECHO LVOT Diameter 2.1 cm LV Diastolic Volume MOD BP 142.1 cm??? 67 - 155 / 56 - 104 cm??? LV Systolic Volume MOD BP 53.6 cm??? 22 - 58 / 19 - 49 cm??? LV Ejection Fraction MOD BP 62.3 % >= 55 % LV Cardiac Index MOD BP 3348.2 cm???/min???m??? LV Diastolic Volume MOD 4C 136.1 cm??? LV Systolic Volume MOD 4C 57.4 cm??? LV Ejection Fraction MOD 4C 57.8 % LV Cardiac Index MOD 4C 2977.6 cm???/min???m??? LV Diastolic Length 4C 9.4 cm LV Systolic Length 4C 8.2 cm LV Diastolic Volume MOD 2C 146.9 cm??? LV Systolic Volume MOD 2C 48.9 cm??? LV Ejection Fraction MOD 2C 66.7 % LV Cardiac Index MOD 2C 3706.7 cm???/min???m??? LV Diastolic Length 2C 9.6 cm LV Systolic Length 2C 7.9 cm LA Volume 72.2 cm??? 18 - 58 / 22 - 52 cm??? LA Volume Index 32.5 cm???/m??? 16 - 28 cm???/m??? DOPPLER AV Peak Velocity 137.2 cm/s AV Peak Gradient 7.5 mmHg AV Mean Velocity 91.3 cm/s AV Mean Gradient 3.9 mmHg AV Velocity Time Integral 27.1 cm LVOT Peak Velocity 118.9 cm/s LVOT Peak Gradient 5.7 mmHg LVOT Velocity Time Integral 21.6 cm LVOT Stroke Volume 71.5 cm??? LVOT Stroke Volume Index 33.8 ml/m??? LVOT Cardiac Index 2705.3 cm???/min???m??? AV Area Cont Eq vti 2.6 cm??? AV Area Cont Eq pk 2.9 cm??? MV Area PHT 3.8 cm??? Mitral E Point Velocity 52.6 cm/s Mitral A Point Velocity 79.1 cm/s Mitral E to A Ratio 0.7 MV Deceleration Time 198.5 ms PV Peak Velocity 119.8 cm/s PV Peak Gradient 5.7 mmHg FINDINGS Left Ventricle Mildly impaired LV function with EF between 45 to 50%. Left ventricular cavity size normal. Left ventricular wall thickness normal. No obvious regional wall motion abnormalities. Right Ventricle Normal right ventricular size with mildly reduced function. Unable to estimate the right ventricular systolic pressure. Right Atrium Normal right atrial size. Left Atrium Mildly increased left atrial volume. Mildly increased left atrial area. Mitral Valve Structurally normal mitral valve. No mitral stenosis, regurgitation or prolapse. Aortic Valve Bioprosthetic aortic valve without stenosis with a peak velocity of 1.4 m/s, peak gradient 8 mmHg, mean gradient 4 mmHg, and estimated aortic valve area of 2.6 cm???. No paravalvular aortic regurgitation. No central aortic regurgitation. Tricuspid Valve Structurally normal tricuspid valve. No tricuspid stenosis. Trace tricuspid regurgitation. Pulmonic Valve Pulmonic valve not well visualized. Pericardium No pericardial effusion. Aorta Aortic annulus normal. CONCLUSIONS Mildly impaired LV function with EF between 45 to 50% Poorly visualized aortic valve. Bioprosthetic aortic valve with a mean gradient of 4 mmHg and no aortic insufficiency Previewed by: Dr. Vance Tirado MD (Electronically Signed) Final Date: 05 April 2024 12:08
[2024-04-05] MEDS: HYDROmorphone 1 MG/ML 1 ML SYRINGE IVP PRN (12:39)
--- NOTE | 2024-04-05 13:10 | P.PN ---
Subjective HISTORY OF PRESENT ILLNESS: This is a 73-year-old male who follows with a sybase developer at [facility]. Patient presented to the hospital with complaints of numbness in his left lower extremity. He was found to have left lower extremity limb ischemia. He underwent femoral-femoral bypass after attempted revascularization. Patient examined this morning at the bedside. Patient is currently sitting up in the chair. He denies any chest pain or pressure. He denies any shortness of breath. Vital signs are stable. He remains on IV heparin. Echocardiogram completed revealing ejection fraction 45 to 50%, poorly visualized aortic valve, bioprosthetic aortic valve with mean gradient of 4 mmHg and no aortic insufficiency, and trace tricuspid regurgitation. The patient does report he had a stress test performed in September 2023 which he reports was unremarkable. PHYSICAL EXAM: VITAL SIGNS: Reviewed. GENERAL: Well-developed in no acute distress. NECK: Supple. No JVD or thyromegaly LUNGS: Respirations even and unlabored. Lungs essentially clear to auscultation bilaterally. HEART: Regular rate and rhythm. S1 and S2 heard. EXTREMITIES: Normal range of motion. No clubbing or cyanosis. Peripheral pulses intact. No lower extremity edema ASSESSMENT: Acute left lower extremity limb ischemia, status post femoral femoral bypass Elevated troponins, type II IL secondary to above, no evidence of acute coronary syndrome Coronary artery disease with previous CABG, 2017 History of bioprosthetic aortic valve replacement, 2017 Paroxysmal atrial fibrillation History of ischemic cardiomyopathy Hypertension Anxiety PLAN: Discontinue IV heparin Resume Eliquis 5 mg twice a day Case discussed with vascular surgery. Okay to continue with aspirin 81 mg daily Continue additional cardiac medications Patient is currently stable from a cardiac standpoint Patient to follow-up postdischarge with his primary sybase developer, Dr. Miller at [facility] Nurse practitioner note has been reviewed by physician. Signing provider agrees with the documented findings, assessment, and plan of care documented by SILVER SOLUTION MIXER as a scribe. Objective - Vital Signs Vital signs: Vital Signs Temp 98.2 F 04/05/24 08:00 Pulse 77 04/05/24 13:00 Resp 18 04/05/24 13:00 BP 110/60 04/05/24 12:00 Pulse Ox 94 L 04/05/24 12:00 FiO2 40 04/04/24 04:30 Intake & Output 04/04/24 04/05/24 04/05/24 18:59 06:59 18:59 Intake Total 116 489 267.236 Output Total 620 550 Balance -504 -61 267.236 Weight 100.7 kg Intake: IV 116 300 Lactated Ringers 1,000 ml 60 300 @ 20 mls/hr IV .Q24H [facility] Rx#:[id number] Normal Saline Pressure 6 Bag ceFAZolin 1,000 mg In 50 Sodium Chloride 0.9% 50 ml @ 100 mls/hr IVPB Q8HR [facility] Rx#:[id number] Intake, IV Titration 189 149.236 Amount Heparin Sod,Pork in 0.45% 69 149.236 NaCl 25,000 unit In 0.45 % NaCl 1 250ml.bag @ 9. 901 UNITS/KG/HR 10 mls/hr IV .Q24H [facility] Rx#: [id number] Lactated Ringers 1,000 ml 120 @ 20 mls/hr IV .Q24H [facility] Rx#:[id number] Oral 118 Output: Urine 620 550 Uretheral (Simon) 100 Other: Voiding Method Urinal Urinal Urinal # Voids 1 ABP, PAP, CO, CI - Last Documented Arterial Blood Pressure 119/48 - Labs CBC & Chem 7: 04/05/24 05:28 04/05/24 05:28 Labs: Abnormal Lab Results - Last 24 Hours (Table) 04/04/24 04/04/24 04/05/24 Range/Units 18:30 18:30 05:28 WBC 13.1 H (3.8-10.6) k/uL RBC 4.08 L (4.30-5.90) m/uL Hgb 11.7 L (13.0-17.5) gm/dL Hct 36.4 L (39.0-53.0) % Neutrophils # 9.9 H (1.3-7.7) k/uL PT (10.0-12.5) sec INR (<1.2) APTT 37.3 H (22.0-30.0) sec Sodium (137-145) mmol/L Carbon Dioxide (22-30) mmol/L Glucose (74-99) mg/dL Calcium (8.4-10.2) mg/dL Troponin I 0.291 H* (0.000-0.034) ng/mL 04/05/24 04/05/2424 Range/Units 05:28 05:28 05:28 WBC (3.8-10.6) k/uL RBC (4.30-5.90) m/uL Hgb (13.0-17.5) gm/dL Hct (39.0-53.0) % Neutrophils # (1.3-7.7) k/uL PT 12.7 H (10.0-12.5) sec INR 1.2 H (<1.2) APTT 42.8 H (22.0-30.0) sec Sodium 132 L (137-145) mmol/L Carbon Dioxide 18 L (22-30) mmol/L Glucose 117 H (74-99) mg/dL Calcium 7.9 L (8.4-10.2) mg/dL Troponin I (0.000-0.034) ng/mL
[2024-04-05 14:11] VITALS: BMI 34.7
--- NOTE | 2024-04-05 15:50 | P.PN ---
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 In the ED patient's vitals were stable. CBC was unremarkable with WBCs 9.0, hemoglobin 14.3, platelet 195. INR 1.1. BMP was unremarkable. Troponin was elevated 0.334. EKG showed sinus rhythm with Q waves in the anteroseptal leads along with evolving ST changes suggestive of possible apical and anterolateral wall old infarct with aneurysm. Vascular surgery was consulted in the ED, patient underwent right common femoral thromboendarterectomy with patch angioplasty, left common femoral thromboendarterectomy and femoral to femoral bypass overnight on 04/04/2024. 04/05/2024 Seen and examined today. Patient remained afebrile, heart rate 77, blood pressure 110/60, saturating 94% on room air, respiratory rate 18. WBCs 13.1, hemoglobin 11.7, platelet 184. INR 1.2. BMP unremarkable. Troponin trended down yesterday. Surgery recommended to encourage ambulation. Cardiology following, switched IV heparin to Eliquis okay to continue aspirin recommended follow-up with his primary lumber tallier Dr. Miller at [facility]. 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 Monitor closely with neurovascular checks. Aspirin, statin Eliquis. PT/OT consult, encourage ambulation. Elevated troponin: Likely type II ME History of ischemic cardiomyopathy with apical aneurysm: CAD status post PCI, CABG in 2017 Status post aortic valve replacement in 2017surgical Paroxysmal atrial fibrillation: Morbid obesity: Obtain medical record from [facility] Obtain echocardiogram Aspirin, statin, Toprol-XL, Aldactone, Entresto Was initially on heparin drip, switch back to Eliquis. Cardiology consulted and following--recommended outpatient follow-up with his primary lumber tallier Dr. Miller at [facility]. DVT prophylaxis Anticoagulated Monitor vital signs and labs Labs and medication were reviewed. Continue same treatment. Further recommendations as per clinical course of the patient PHYSICAL EXAMINATION: GENERAL: The patient is A&O x3, NAD HEENT: EOMI, Sclerae anicteric, Moist Mucous membranes Neck: Supple, Non tender, No JVD PULMONARY: Equal breath souds B/L, No wheezing, No crackles. CARDIOVASCULAR: S1, S2 present. + murmurs, rubs, or gallops. ABDOMEN: Soft, nontender, nondistended, normoactive bowel sounds. No guarding or rebound tenderness. MUSCULOSKELETAL: No edema, No cyanosis. No clubbing. Normal ROM. Intact peripheral pulses. NEUROLOGICAL: CN 2-12 grossly intact. No FND Skin: No Rash REVIEW OF SYSTEMS: CONSTITUTIONAL: No fever or chills. CARDIOVASCULAR: No chest pain, palpitations or syncope. PULMONARY: No shortness of breath, no cough, sore throat. GASTROINTESTINAL: No nausea, vomiting, diarrhea, abdominal pain. : No Dysuria, urgency, frequency. Extremities: No edema. NEUROLOGICAL: No headaches, no weakness, or numbness Dictation was produced using [employer] dictation software. please excuse any grammatical, word or spelling errors. Objective - Vital Signs Vital signs: Vital Signs Temp 98.2 F 04/05/24 08:00 Pulse 77 04/05/24 13:00 Resp 18 04/05/24 13:00 BP 110/60 04/05/24 12:00 Pulse Ox 94 L 04/05/24 12:00 FiO2 40 04/04/24 04:30 Intake & Output 04/04/24 04/05/24 04/05/24 18:59 06:59 18:59 Intake Total 116 489 267.236 Output Total 620 550 Balance -504 -61 267.236 Weight 100.7 kg 100.7 kg Intake: IV 116 300 Lactated Ringers 1,000 ml 60 300 @ 20 mls/hr IV .Q24H [facility] Rx#:[id number] Normal Saline Pressure 6 Bag ceFAZolin 1,000 mg In 50 Sodium Chloride 0.9% 50 ml @ 100 mls/hr IVPB Q8HR [facility] Rx#:[id number] Intake, IV Titration 189 149.236 Amount Heparin Sod,Pork in 0.45% 69 149.236 NaCl 25,000 unit In 0.45 % NaCl 1 250ml.bag @ 9. 901 UNITS/KG/HR 10 mls/hr IV .Q24H [facility] Rx#: [id number] Lactated Ringers 1,000 ml 120 @ 20 mls/hr IV .Q24H [facility] Rx#:[id number] Oral 118 Output: Urine 620 550 Uretheral (Simon) 100 Other: Voiding Method Urinal Urinal Urinal # Voids 1 ABP, PAP, CO, CI - Last Documented Arterial Blood Pressure 119/48 - Labs CBC & Chem 7: 04/05/24 05:28 04/05/24 05:28 Labs: Abnormal Lab Results - Last 24 Hours (Table) 04/04/24 04/04/24 04/05/24 Range/Units 18:30 18:30 05:28 WBC 13.1 H (3.8-10.6) k/uL RBC 4.08 L (4.30-5.90) m/uL Hgb 11.7 L (13.0-17.5) gm/dL Hct 36.4 L (39.0-53.0) % Neutrophils # 9.9 H (1.3-7.7) k/uL PT (10.0-12.5) sec INR (<1.2) APTT 37.3 H (22.0-30.0) sec Sodium (137-145) mmol/L Carbon Dioxide (22-30) mmol/L Glucose (74-99) mg/dL Calcium (8.4-10.2) mg/dL Troponin I 0.291 H* (0.000-0.034) ng/mL 04/05/24 04/05/24 04/05/24 Range/Units 05:28 05:28 05:28 WBC (3.8-10.6) k/uL RBC (4.30-5.90) m/uL Hgb (13.0-17.5) gm/dL Hct (39.0-53.0) % Neutrophils # (1.3-7.7) k/uL PT 12.7 H (10.0-12.5) sec INR 1.2 H (<1.2) APTT 42.8 H (22.0-30.0) sec Sodium 132 L (137-145) mmol/L Carbon Dioxide 18 L (22-30) mmol/L Glucose 117 H (74-99) mg/dL Calcium 7.9 L (8.4-10.2) mg/dL Troponin I (0.000-0.034) ng/mL
[2024-04-06 07:57] LABS: Basophils % (A) 0 %; Eosinophils # (A) 0.1 k/uL (0-0.7); Eosinophils % (A) 1 %; HCT 35.5 % (39.0-53.0); HGB 11.7 gm/dL (13.0-17.5); Lymphocytes # (A) 2.2 k/uL (1.0-4.8); Lymphocytes % (A) 18 %; MCH 29.5 pg (25.0-35.0); MCHC 32.9 g/dL (31.0-37.0); MCV 89.7 fL (80.0-100.0); Mean Platelet Volume 7.4; Monocytes # (A) 0.8 k/uL (0-1.0); Monocytes % (A) 7 %; Neutrophils # (A) 8.7 k/uL (1.3-7.7); Neutrophils % (A) 72 %; Platelet Count 200 k/uL (150-450); RBC 3.95 m/uL (4.30-5.90); RDW 12.9 % (11.5-15.5); WBC 12.1 k/uL (3.8-10.6)
[2024-04-06 07:59] LABS: African American GFR (CKD) >90 (>60 ml/min/1.73 sqM); Anion Gap 5 mmol/L; Blood Urea Nitrogen 9 mg/dL (9-20); Calcium 8.2 mg/dL (8.4-10.2); Carbon Dioxide 23 mmol/L (22-30); Chloride 105 mmol/L (98-107); Glucose 113 mg/dL (74-99); Non-African American GFR(CKD) 78 (>60 ml/min/1.73 sqM); Potassium 3.7 mmol/L (3.5-5.1); Sodium 133 mmol/L (137-145)
--- NOTE | 2024-04-06 10:35 | P.PN ---
Subjective Progress Note Date: 04/06/24 Principal diagnosis: Left lower extremity limb ischemia 73-year-old gentleman who underwent femoral-femoral bypass after attempted revascularization of left lower extremity due to left foot ischemia. He is postop day #2. Yesterday he was seen by physical therapy and was up walking the hallway. He states his pain is better controlled today. He has been up and ambulating more. He states he is ready for discharge. Left lower extremity pain improved. Denies any shortness of breath at this time. Hemoglobin 11.7. Objective - Vital Signs Vital signs: Vital Signs Temp 98.3 F 04/06/24 03:28 Pulse 68 04/06/24 03:28 Resp 20 04/06/24 03:28 BP 101/56 04/06/24 03:28 Pulse Ox 96 04/06/24 03:28 FiO2 40 04/06/24 00:43 Intake & Output 04/05/24 04/06/24 04/06/24 18:59 06:59 18:59 Intake Total 385.236 10 118 Output Total 600 Balance 385.236 -590 118 Weight 100.7 kg 99.6 kg Intake: IV 10 Invasive Line 1 10 Intake, IV Titration 149.236 Amount Heparin Sod,Pork in 0.45% 149.236 NaCl 25,000 unit In 0.45 % NaCl 1 250ml.bag @ 9. 901 UNITS/KG/HR 10 mls/hr IV .Q24H [facility] Rx#: [id number] Oral 236 118 Output: Urine 600 Other: Voiding Method Urinal Urinal # Voids 2 ABP, PAP, CO, CI - Last Documented Arterial Blood Pressure 119/48 - Exam General appearance: The patient is alert, oriented, appears in no acute distress. HET: Head is normocephalic and atraumatic. Pupils are equal and reactive. Neck: Supple. Heart: Regular. Lungs: Equal expansion, normal respiratory effort. Abdomen: Soft, nontender, nondistended. Extremities: Normal skin color and turgor. Bilateral groins surgical site well- approximated with tessa, some surrounding swelling and mild ecchymosis, no hematoma. Right lower extremity warm to the touch, good capillary refill with PT and DP Doppler signal. Neurological: No focal deficits. - Labs CBC & Chem 7: 04/06/24 06:24 04/06/24 06:24 Labs: Abnormal Lab Results - Last 24 Hours (Table) 04/06/24 04/06/24 Range/Units 06:24 06:24 WBC 12.1 H (3.8-10.6) k/uL RBC 3.95 L (4.30-5.90) m/uL Hgb 11.7 L (13.0-17.5) gm/dL Hct 35.5 L (39.0-53.0) % Neutrophils # 8.7 H (1.3-7.7) k/uL Sodium 133 L (137-145) mmol/L Glucose 113 H (74-99) mg/dL Calcium 8.2 L (8.4-10.2) mg/dL Assessment and Plan Assessment: 1. Acute critical limb ischemia of left lower extremity 2. Postop day #2 for femorofemoral bypass 3. Elevated troponin 4. History of ischemic cardiomyopathy 5. Coronary artery disease status post PCI and CABG 6. Atrial fibrillation Plan: 1. PT and OT on consult. Encourage ambulation 2. Bilateral groin dressings changed 3. Incentive spirometer ordered to bedside 4. Continue with recommendations from cardiology 5. Patient can continue with aspirin 81 mg and Eliquis as ordered 6. Discharge instructions reviewed with patient. He verbalized understanding. He will follow-up with Dr. Morataya next week as scheduled. Thank you for this consultation, patient is cleared from vascular surgery for discharge. The impression and plan of care has been dictated as directed. Dr. Morataya I performed a history and examination of this patient, discussed the same with the dictator. I agree with the dictator's note ,documented as a scribe. Any additional findings or plans will be noted.
[2024-04-06 11:12] VITALS: RESP 18
--- NOTE | 2024-04-06 11:54 | P.PN ---
Subjective HISTORY OF PRESENT ILLNESS: This is a 73-year-old male who follows with a electric motor repairer at [facility]. Patient presented to the hospital with complaints of numbness in his left lower extremity. He was found to have left lower extremity limb ischemia. He underwent femoral-femoral bypass after attempted revascularization. Patient examined this morning at the bedside. Patient is currently sitting up in the chair. He denies any chest pain or pressure. He denies any shortness of breath. Vital signs are stable. He remains on IV heparin. Echocardiogram completed revealing ejection fraction 45 to 50%, poorly visualized aortic valve, bioprosthetic aortic valve with mean gradient of 4 mmHg and no aortic insufficiency, and trace tricuspid regurgitation. The patient does report he had a stress test performed in September 2023 which he reports was unremarkable. 04/06/2024 Patient examined this morning at the bedside. Patient currently denies chest pain or pressure. He denies shortness of breath. Vital signs are stable. Patient is hoping to be discharged home today. PHYSICAL EXAM: VITAL SIGNS: Reviewed. GENERAL: Well-developed in no acute distress. NECK: Supple. No JVD or thyromegaly LUNGS: Respirations even and unlabored. Lungs essentially clear to auscultation bilaterally. HEART: Regular rate and rhythm. S1 and S2 heard. EXTREMITIES: Normal range of motion. No clubbing or cyanosis. Peripheral pulses intact. No lower extremity edema ASSESSMENT: Acute left lower extremity limb ischemia, status post femoral femoral bypass Elevated troponins, type II ME secondary to above, no evidence of acute coronary syndrome Coronary artery disease with previous CABG, 2017 History of bioprosthetic aortic valve replacement, 2017 Paroxysmal atrial fibrillation History of ischemic cardiomyopathy Hypertension Anxiety PLAN: Continue Eliquis and aspirin Continue additional cardiac medications Patient is currently stable from a cardiac standpoint Patient to follow-up postdischarge with his primary electric motor repairer, Dr. Miller at [facility] Nurse practitioner note has been reviewed by physician. Signing provider agrees with the documented findings, assessment, and plan of care documented by GENERAL UTILITY MAINTENANCE REPAIRER as a scribe. Objective - Vital Signs Vital signs: Vital Signs Temp 98.3 F 04/06/24 08:45 Pulse 73 04/06/24 08:45 Resp 18 04/06/24 08:45 BP 103/55 04/06/24 08:45 Pulse Ox 92 L 04/06/24 08:45 FiO2 40 04/06/24 00:43 Intake & Output 04/05/24 04/06/24 04/06/24 18:59 06:59 18:59 Intake Total 385.236 10 118 Output Total 600 Balance 385.236 -590 118 Weight 100.7 kg 99.6 kg Intake: IV 10 Invasive Line 1 10 Intake, IV Titration 149.236 Amount Heparin Sod,Pork in 0.45% 149.236 NaCl 25,000 unit In 0.45 % NaCl 1 250ml.bag @ 9. 901 UNITS/KG/HR 10 mls/hr IV .Q24H [facility] Rx#: [id number] Oral 236 118 Output: Urine 600 Other: Voiding Method Urinal Urinal Urinal # Voids 2 ABP, PAP, CO, CI - Last Documented Arterial Blood Pressure 119/48 - Labs CBC & Chem 7: 04/06/24 06:24 04/06/24 06:24 Labs: Abnormal Lab Results - Last 24 Hours (Table) 04/06/24 04/06/24 Range/Units 06:24 06:24 WBC 12.1 H (3.8-10.6) k/uL RBC 3.95 L (4.30-5.90) m/uL Hgb 11.7 L (13.0-17.5) gm/dL Hct 35.5 L (39.0-53.0) % Neutrophils # 8.7 H (1.3-7.7) k/uL Sodium 133 L (137-145) mmol/L Glucose 113 H (74-99) mg/dL Calcium 8.2 L (8.4-10.2) mg/dL
[2024-04-06 12:37] VITALS: BP 127/73; PULSE 74; TEMP 98.5
--- NOTE | 2024-04-06 13:24 | IR ---
EXAMINATION TYPE: IR stent intravas non coronary DATE OF EXAM: 04/03/2024 9:14 PM COMPARISON: Pre Operative Images if available both CT/MRI or plain film CLINICAL INDICATION: Male, 73 years old with history of LEG ISCHEMIA; TECHNIQUE: IR stent intravas non coronary, multiple fluoroscopic images provided for procedure. Total fluoroscopy time: 27.3 minutes Total submitted images to PACS: [id number] DAP: 290 mGym2 Gycm2 uGym2 cGycm2 or equivalent. FINDINGS: IMPRESSION: 1. Report was generated for administrative purposes only. 2. Please see the operative/procedural note for further details. [facility], , 04/06/2024 1:21 PM
--- NOTE | 2024-04-07 13:35 | P.OP ---
Date of Procedure: 04/03/24 Preoperative Diagnosis: 1: Occlusion left common iliac artery. 2: Thrombosed left popliteal artery aneurysm. 3: Advanced ischemia left lower extremity secondary to #1 and #2 above. 4: Infrarenal abdominal aortic aneurysm. Postoperative Diagnosis: 1: Same plus high-grade right common iliac artery stenosis. 2: Inability to cross the iliac artery occlusion on the left. Procedure(s) Performed: 1: Ultrasound-guided cannulation of both the right and left common femoral arteries. 2: Abdominal aortogram with iliac imaging. 3: Inability to cross left common iliac artery occlusion. 4: Covered stent placement high-grade right iliac artery stenosis. Anesthesia: local (With IV sedation.) Surgeon: See Navarrete Estimated Blood Loss (ml): 50 Pathology: none sent Condition: stable Disposition: other (To OR for femoral to femoral bypass.) Indications for Procedure: Patient is a 73-year-old male who presented to the hospital earlier this day with complaint of left leg pain. Physical examination revealed the patient to be unable to move his foot and with significantly decreased sensation of the left foot. Femoral, popliteal and pedal pulses were absent on the left. CT angiogram demonstrated total occlusion of the left common iliac artery as well as a thrombosed left popliteal artery aneurysm. Also identified was slightly large and a 4 cm infrarenal abdominal aortic aneurysm. Percutaneous approach to the iliac artery aneurysm was offered an attempt to reestablish improved perfusion. The procedure, risk and benefits were discussed. All questions were answered to patient satisfaction and consent form was signed. Description of Procedure: Patient was brought to the cardiac catheterization laboratory. Both groins were sterilely prepped draped in usual manner. Patient received multiple doses of fentanyl and Versed throughout the procedure. Utilizing ultrasound the right femoral artery was identified. 1% Xylocaine was utilized for local anesthesia tissues overlying the femoral artery. Through this anesthetized area with the aid of ultrasound a multipurpose needle was utilized to cannulate the common femoral artery. Once cannulated soft tipped guidewire was advanced into the artery. The needle was withdrawn and a 6 Guyanese sheath was placed. 0.035 inch Glidewire was advanced and met resistance at the common femoral level. Eventually the wire crossed the lesion and entered the abdominal aorta. Over the wire a pigtail catheter was advanced to the L1-L2 interspace. Abdominal aortogram was performed. This demonstrated single renal arteries bilaterally with a patent abdominal aortic aneurysm. The origin of the left common iliac artery was identified and the common iliac artery was heavily calcified and occluded. The catheter was pulled down to the aortic bifurcation and utilizing multiple guidewire and different catheters attempt to cross the left iliac artery occlusion for percutaneous repair was unsuccessful. Subsequently a second sheath was placed in a retrograde manner through the left common femoral artery in a manner as described for the first. Once again multiple guidewires and catheters were used in combination in attempt to cross the lesion. The lesion could not be crossed and was felt that the patient would now require femoral- femoral bypass. To improve the flow through the right iliac system into the left femoral system it was decided to balloon dilate the right common iliac artery. This artery measured to slightly greater than 9 mm in diameter. A 10 mm x 39 mm covered stent system was selected. The 6 Guyanese sheath was exchanged for an 8 Guyanese sheath and through the 8 Guyanese sheath the balloon and stent were advanced into the iliac artery and deployed. Completion angiogram demonstrated the common and external iliac system on the right to be widely patent. This was felt adequate for planned femoral to femoral bypass. Both sheaths were secured to the skin with nylon suture and protected. The patient was then transferred to the preop area in anticipation of femoral-fe moral bypass graft. Patient tolerated the procedure well. Total moderate conscious sedation time 90 minutes
== END 2024-04-06 14:24 | disposition home or self-care (01) | DRG 252 ==
LOC: EC 13:13 → 3SCARD 16:58 → 2SICU 19:11 → 3SCARD 04-05 00:54
PROVIDERS: ADMIT Hospitalist; ATTEND Hospitalist
PROC: 03HY32Z Insertion of Monitoring Device into Upper Artery, Percutaneous Approach (ICD-10-PCS; 2024-04-03)
PROC: 047L3ZZ Dilation of Left Femoral Artery, Percutaneous Approach (ICD-10-PCS; 2024-04-03)
PROC: 047K3ZZ Dilation of Right Femoral Artery, Percutaneous Approach (ICD-10-PCS; 2024-04-03)
PROC: 047 Lower Arteries, Dilation (ICD-10-PCS; 2024-04-03)
PROC: 4A133B1 Monitoring of Arterial Pressure, Peripheral, Percutaneous Approach (ICD-10-PCS; 2024-04-03)
PROC: 4A133J1 Monitoring of Arterial Pulse, Peripheral, Percutaneous Approach (ICD-10-PCS; 2024-04-03)
PROC: B40D1ZZ Plain Radiography of Aorta and Bilateral Lower Extremity Arteries using Low Osmolar Contrast (ICD-10-PCS; 2024-04-03)
PROC: 04CL0ZZ Extirpation of Matter from Left Femoral Artery, Open Approach (ICD-10-PCS; principal; 2024-04-04)
PROC: 04CK0ZZ Extirpation of Matter from Right Femoral Artery, Open Approach (ICD-10-PCS; 2024-04-04)
PROC: 04UK0JZ Supplement Right Femoral Artery with Synthetic Substitute, Open Approach (ICD-10-PCS; 2024-04-04)
PROC: 041K0JH Bypass Right Femoral Artery to Right Femoral Artery with Synthetic Substitute, Open Approach (ICD-10-PCS; 2024-04-04)
PROC: 041L0JJ Bypass Left Femoral Artery to Left Femoral Artery with Synthetic Substitute, Open Approach (ICD-10-PCS; 2024-04-04)
PROC: 04UL0JZ Supplement Left Femoral Artery with Synthetic Substitute, Open Approach (ICD-10-PCS; 2024-04-04)
DX: I70.222 Atherosclerosis of native arteries of extremities with rest pain, left leg (principal); I21.A1 Myocardial infarction type 2; I74.3 Embolism and thrombosis of arteries of the lower extremities; I74.5 Embolism and thrombosis of iliac artery; I25.5 Ischemic cardiomyopathy; I48.0 Paroxysmal atrial fibrillation; I72.4 Aneurysm of artery of lower extremity; E66.01 Morbid (severe) obesity due to excess calories; I25.10 Atherosclerotic heart disease of native coronary artery without angina pectoris; I10 Essential (primary) hypertension; F41.9 Anxiety disorder, unspecified; E78.5 Hyperlipidemia, unspecified; F17.200 Nicotine dependence, unspecified, uncomplicated; I71.43 Infrarenal abdominal aortic aneurysm, without rupture; I72.3 Aneurysm of iliac artery; Z88.1 Allergy status to other antibiotic agents; Z98.61 Coronary angioplasty status; Z86.73 Personal history of transient ischemic attack (TIA), and cerebral infarction without residual deficits; I25.2 Old myocardial infarction; Z95.3 Presence of xenogenic heart valve; Z95.1 Presence of aortocoronary bypass graft; Z79.01 Long term (current) use of anticoagulants; Z79.82 Long term (current) use of aspirin
CPT/HCPCS: 36415; 37221; 71046; 71275; 75625; 75635; 75710; 80048; 80053; 83605; 83735; 84484; 85025; 85610; 85730; 86850; 86900; 86901; 93005; 93306; 94660; 96374; 99291

== ENCOUNTER 2024-04-15 16:39 | Inpatient (IN) | payer MEDICARE, BC ==
[2024-04-15 16:50] VITALS: TEMP 98.5
[2024-04-15] MEDS ORDERED: RX INFO: IV CONTRAST WAS GIVEN 1 EACH MISC MISCELLANE PRN (16:51)
[2024-04-15 17:17] LABS: Basophils % (A) 0 %; Eosinophils # (A) 0.1 k/uL (0-0.7); Eosinophils % (A) 2 %; HCT 36.5 % (39.0-53.0); HGB 12.1 gm/dL (13.0-17.5); Lymphocytes # (A) 1.7 k/uL (1.0-4.8); Lymphocytes % (A) 18 %; MCH 28.9 pg (25.0-35.0); MCHC 33.1 g/dL (31.0-37.0); MCV 87.1 fL (80.0-100.0); Mean Platelet Volume 7.6; Monocytes # (A) 0.5 k/uL (0-1.0); Monocytes % (A) 5 %; Neutrophils # (A) 6.7 k/uL (1.3-7.7); Neutrophils % (A) 72 %; Platelet Count 220 k/uL (150-450); RDW 13.9 % (11.5-15.5); WBC 9.2 k/uL (3.8-10.6)
[2024-04-15 17:26] LABS: INR 1.1 (<1.2); Partial Thromboplastin Time 30.8 sec (22.0-30.0); Prothrombin Time 12.2 sec (10.0-12.5)
[2024-04-15 17:29] LABS: ALT 49 U/L (4-49); AST 45 U/L (17-59); African American GFR (CKD) 80 (>60 ml/min/1.73 sqM); Alkaline Phosphatase 68 U/L (38-126); Anion Gap 3 mmol/L; Blood Urea Nitrogen 16 mg/dL (9-20); Calcium 8.3 mg/dL (8.4-10.2); Carbon Dioxide 26 mmol/L (22-30); Chloride 102 mmol/L (98-107); Glucose 120 mg/dL (74-99); Non-African American GFR(CKD) 69 (>60 ml/min/1.73 sqM); Sodium 131 mmol/L (137-145); Total Bilirubin 0.9 mg/dL (0.2-1.3); Total Protein 6.6 g/dL (6.3-8.2)
--- NOTE | 2024-04-15 17:36 | ED ---
Extremity Problem HPI - General Source: patient, family, RN notes reviewed Limitations: no limitations <Claribel Jaramillo - Last Filed: 04/15/24 17:36> - General Source: patient, family, RN notes reviewed, old records reviewed Mode of arrival: wheelchair Limitations: no limitations <Ct Keenan - Last Filed: 04/16/24 02:08> - General Chief complaint: Extremity Problem,Nontraumatic Stated complaint: R LEG PN Time Seen by Provider: 04/15/24 16:50 - History of Present Illness Initial comments: Quick note- this is a 73-year-old male with a history of peripheral arterial disease with recent femoral artery bypass completed approximately [address] Antony examines apart for chief complaint of right lower extremity pain. States that about 2 to 3 hours before arrival to emergency department he was experiencing pain, paresthesias, cool to the touch his right lower extremity. Patient states that symptoms felt similar as when he presented over 1 week ago where he did undergo emergent surgery. Patient is currently on Xarelto. (Claribel Jaramillo) 73-year-old male presenting to the ER with a chief complaint of right thigh pain. Patient reports a history of peripheral arterial disease and underwent a recent femoral artery bypass and left lower extremity bypass approximately [address] Antony. Patient reports he typically follows up with Dr. Carmen. Patient reports around 430 this afternoon he started to experience a 10 out of 10 intense right medial thigh pain. He describes it as achy in nature. He states pain radiated down the medial aspect of his right leg. states she examined his leg at that time and noticed it to be cool to touch and she was unable to feel pulses at that time. Patient does report a tingling sensation in his foot. He denies any known traumas or injuries. Patient states he is currently taking Eliquis. Patient followed up and off with Dr. Morataya on 04/13/24 and follow-up was completely normal, per . Patient states pain has since subsided and only lasted approximately 30 -45 minutes. He denies any injuries or traumas. No fevers. No chest pain or shortness of breath. No other complaints. (Ct Keenan) - Related Data Home Medications Medication Instructions Recorded Confirmed ALPRAZolam [Xanax] 0.5 mg PO BID PRN 04/03/24 04/03/24 Apixaban [Eliquis] 5 mg PO BID 04/03/24 04/03/24 Furosemide [Lasix] 20 mg PO Q48H 04/03/24 04/03/24 Meclizine [Antivert] 25 mg PO TID PRN 04/03/24 04/03/24 Rosuvastatin Calcium [Crestor] 40 mg PO HS 04/03/24 04/03/24 Previous Rx's Medication Instructions Recorded Aspirin 81 mg PO DAILY #30 tab 04/06/24 HYDROcodone/APAP 5-325MG [[place] 2 each PO Q4HR PRN #18 tab 04/06/24 5-325] Metoprolol Succinate (ER) [Toprol 25 mg PO DAILY #30 tab 04/06/24 XL] Sacubitril/Valsartan [Entresto 24 1 each PO BID #60 tab 04/06/24 mg-26 mg Tablet] Spironolactone [Aldactone] 12.5 mg PO DAILY #30 tab 04/06/24 amLODIPine [Norvasc] 5 mg PO DAILY #15 tab 04/06/24 Allergies Allergy/AdvReac Type Severity Reaction Status Date / Time clindamycin Allergy Rash/Hives Verified 04/03/24 15:54 Review of Systems ROS Other: All systems not noted in ROS Statement are negative. <Claribel Jaramillo - Last Filed: 04/15/24 17:36> ROS Other: All systems not noted in ROS Statement are negative. <Ct Keenan - Last Filed: 04/16/24 02:08> ROS Statement: Those systems with pertinent positive or pertinent negative responses have been documented in the HPI. Past Medical History Past Medical History: Coronary Artery Disease (CAD), CVA/TIA Additional Past Medical History / Comment(s): Decrease circulation left lower ext. History of Any Multi-Drug Resistant Organisms: None Reported Past Surgical History: Coronary Bypass/CABG, Heart Catheterization, Heart Catheterization With Stent Additional Past Surgical History / Comment(s): right femorl bypass Date of Last Stent Placement:: 2011 Past Psychological History: No Psychological Hx Reported Smoking Status: Current every day smoker Past Alcohol Use History: None Reported Past Drug Use History: None Reported <Claribel Jaramillo - Last Filed: 04/15/24 17:36> General Exam Limitations: no limitations <Claribel Jaramillo - Last Filed: 04/15/24 17:36> Limitations: no limitations General appearance: alert, in no apparent distress Respiratory exam: Present: normal lung sounds bilaterally. Absent: respiratory distress, wheezes, rales, rhonchi, stridor Cardiovascular Exam: Present: regular rate, normal rhythm, systolic murmur (pulmonary) Extremities exam: Present: full ROM, normal capillary refill Right Knee exam: Present: full ROM Lower Leg exam: Present: full ROM Ankle exam: Present: full ROM Foot/Toe exam: Present: full ROM Neurovascular tendon exam: Present: pulse deficit (No palpable dp/pt pulses. None heard with Doppler.), extremity cold to touch, pallor Left Ankle exam: Present: full ROM Foot/Toe exam: Present: full ROM Neurovascular tendon exam: Present: no vascular compromise (PT pulses are with Doppler.) Neurological exam: Present: alert, oriented X3, CN II-XII intact Skin exam: Present: warm, dry, intact, normal color, other (Healing vertical s urgical incisions bilateral groin. Joseph in place. No surrounding erythema or drainage present. Tender to touch.). Absent: rash <Ct Keenan - Last Filed: 04/16/24 02:08> - General Exam Comments Initial Comments: Visual Physical Exam Vital signs reviewed General: Well-appearing, nontoxic, no acute distress. Head: Normocephalic, atraumatic Eyes: PERRLA, EOMI ENT: Airway patent Chest: Nonlabored breathing Skin: No visual rash, normal skin tone Neuro: Alert and oriented 3 Musculoskeletal: No gross abnormalities (Claribel Jaramillo) Course <Ct Keenan - Last Filed: 04/16/24 02:08> Vital Signs 04/15/24 04/15/24 16:45 23:02 Temperature 98.5 F Pulse Rate 70 77 Respiratory 20 12 Rate Blood Pressure 102/56 107/59 O2 Sat by Pulse 97 97 Oximetry - Reevaluation(s) Reevaluation #1: 04/15/24 21:47 Case discussed with on-call vascular, . She [facility] and to start patient on heparin drip. 04/15/24 21:59 Case discussed with Nancie Wade [facility], for admission. (Ct Keenan) Medical Decision Making - Lab Data Result diagrams: 04/15/24 17:04 04/15/24 17:04 <Claribel Jaramillo - Last Filed: 04/15/24 17:36> - Lab Data Result diagrams: 04/15/24 17:04 04/15/24 17:04 - Radiology Data Radiology results: report reviewed, image reviewed <Ct Keenan - Last Filed: 04/16/24 02:08> - Medical Decision Making I completed the quick note portion of this chart signed Claribel Jaramillo PA-C (Claribel Jaramillo) Was pt. sent in by a medical professional or institution ([facility], [employer]LECT[employer]IC SYSTEM ENGINEER, urgent care, hospital, or snf...) When possible be specific @ -No Did you speak to anyone other than the patient for history (EMS, parent, family, police, friend...)? What history was obtained from this source @ - aiding in HPI and past medical history. Did you review nursing and triage notes (agree or disagree)? Why? @ -I reviewed and agree with nursing and triage notes Were old charts reviewed (outside hosp., previous admission, EMS record, old EKG, old radiological studies, urgent care reports/EKG's, snf records)? Report findings @ -Yes, I reviewed ER visit and hospital stay from 04-03-2024. Patient underwent emergent femorofemoral bypass graft by Dr. Antony. Differential Diagnosis (chest pain, altered mental status, abdominal pain women, abdominal pain men, vaginal bleeding, weakness, fever, dyspnea, syncope, headache, dizziness, GI bleed, back pain, seizure, CVA, palpatations, mental health, musculoskeletal)? @ -Differential Musculoskeletal:Muscular strain, contusion, ligament sprain, fracture, arthritis, septic arthritis, bursitis, cellulitis, muscle spasm, nerve compression, DVT, arterial occlusion, herpes zoster, electrolyte abnormality, t umor.... This is not meant to be in all inclusive list EKG interpreted by me (3pts min.). @ -None done X-rays interpreted by me (1pt min.). @ -None done CT interpreted by me (1pt min.). @ -CTA right lower extremity showing interval femoral-femoral bypass graft. There is an occlusion noted at the right femoral artery anastomosis. Reconstruction distally via the superficial femoral artery. 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 U/S interpreted by me (1pt. min.). @ -None done What testing was considered but not performed or refused? (CT, X-rays, U/S, labs)? Why? @ -None What meds were considered but not given or refused? Why? @ -None Did you discuss the management of the patient with other professionals (professionals i.e. DrPrakash, PA, ELECTRONIC SYSTEM ENGINEER, lab, RT, psych nurse, adoption social worker, truck cleaner, teacher, guest relation officer, watch case polisher)? Give summary @ -Case discussed with on-call vascular, , who advised on starting heparin drip and medicine admission. Case also discussed with Nancie Wade from [facility] for admission. Was smoking cessation discussed for >3mins.? @ -No Was critical care preformed (if so, how long)? @ -No Were there social determinants of health that impacted care today? How? (Homelessness, low income, unemployed, alcoholism, drug addiction, transportation, low edu. Level, literacy, decrease access to med. care, [facility], rehab)? @ -No Was there de-escalation of care discussed even if they declined (Discuss DNR or withdrawal of care, Hospice)? DNR status @ -No What co-morbidities impacted this encounter? (DM, HTN, Smoking, COPD, CAD, Cancer, CVA, ARF, Chemo, Hep., AIDS, mental health diagnosis, sleep apnea, morbid obesity)? @ -PAD, CAD Was patient admitted / discharged? Hospital course, mention meds given and route, prescriptions, significant lab abnormalities, going to OR and other pertinent info. @ -Admitted. 73-year-old male presented to the ER with a chief complaint of right thigh pain. Patient initially seen as a quick note where laboratory studies and CTA ordered. Patient recently underwent a femoral-femoral bypass graft by Dr. Antony on 04-03-2024. Upon rooming and my evaluation, history and physical exam completed. Vitals within normal limits. Patient in no signs of acute distress stating pain has since resolved since arriving to the emergency department. Lower extremity exam remarkable for no palpable DP or PT pulses on right lower extremity. These pulses are also not heard with Doppler. Right l ower extremity is pale and cool to touch compared to left. Full range of motion of right lower extremity. Patient reports intact sensation but states it feels "tingly". Left PT pulses heard with Doppler. Patient has 2 healing vertical surgical incisions in the groin with joseph in place. There is no evidence of infection. CBC remarkable for a hemoglobin of 12.1 which appears to be chronic in nature. CMP showing hyponatremia at 131, potassium 4.0, chloride 102, carbon oxide 26. Lactic 2.6 which resolved to 1.5 after 1 L IV fluid bolus. CTA right lower extremity concerning of occlusion of the right femoral artery. This was discussed with on-call vascular, Dr. Simon who advised on heparinization and medicine admission. Case was also discussed with [facility], Nancie Wade for admission. Heparin drip started. Patient made n.p.o. at midnight. Upon reevaluation, patient resting comfortably in exam room no signs of acute distress. Results discussed with patient and , at bedside, all questions answered. Patient is agreeable for admission. Case discussed with ED attending, Dr. Wade. Undiagnosed new problem with uncertain prognosis? @ -No Drug Therapy requiring intensive monitoring for toxicity (Heparin, Nitro, Insulin, Cardizem)? @ -Yes, heparin Were any procedures done? @ -No Diagnosis/symptom? @ -Right femoral artery occlusion Acute, or Chronic, or Acute on Chronic? @ -Acute Uncomplicated (without systemic symptoms) or Complicated (systemic symptoms)? @ -Complicated Side effects of treatment? @ -No Exacerbation, Progression, or Severe Exacerbation? @ -No Poses a threat to life or bodily function? How? (Chest pain, USA, IA, pneumonia, PE, COPD, DKA, ARF, appy, cholecystitis, CVA, Diverticulitis, Homicidal, Suicidal, threat to staff... and all critical care pts) @ -Yes, arterial occlusion can lead to an ischemic limb. (Ct Keenan) - Lab Data Lab Results 04/15/24 04/15/24 04/15/24 Range/Units 17:04 17:04 17:04 WBC 9.2 (3.8-10.6) k/uL RBC 4.20 L (4.30-5.90) m/uL Hgb 12.1 L (13.0-17.5) gm/dL Hct 36.5 L (39.0-53.0) % MCV 87.1 (80.0-100.0) fL MCH 28.9 (25.0-35.0) pg MCHC 33.1 (31.0-37.0) g/dL RDW 13.9 (11.5-15.5) % Plt Count 220 (150-450) k/uL MPV 7.6 Neutrophils % 72 % Lymphocytes % 18 % Monocytes % 5 % Eosinophils % 2 % Basophils % 0 % Neutrophils # 6.7 (1.3-7.7) k/uL Lymphocytes # 1.7 (1.0-4.8) k/uL Monocytes # 0.5 (0-1.0) k/uL Eosinophils # 0.1 (0-0.7) k/uL Basophils # 0.0 (0-0.2) k/uL PT 12.2 (10.0-12.5) sec INR 1.1 (<1.2) APTT 30.8 H (22.0-30.0) sec Sodium 131 L (137-145) mmol/L Potassium 4.0 (3.5-5.1) mmol/L Chloride 102 (98-107) mmol/L Carbon Dioxide 26 (22-30) mmol/L Anion Gap 3 mmol/L BUN 16 (9-20) mg/dL Creatinine 1.06 (0.66-1.25) mg/dL Est GFR (CKD-EPI)AfAm 80 (>60 ml/min/1.73 sqM) Est GFR (CKD-EPI)NonAf 69 (>60 ml/min/1.73 sqM) Glucose 120 H (74-99) mg/dL Lactic Ac Sepsis Rflx Plasma Lactic Acid Miguel A (0.7-2.0) mmol/L Calcium 8.3 L (8.4-10.2) mg/dL Total Bilirubin 0.9 (0.2-1.3) mg/dL AST 45 (17-59) U/L ALT 49 (4-49) U/L Alkaline Phosphatase 68 (38-126) U/L Total Protein 6.6 (6.3-8.2) g/dL Albumin 3.0 L (3.5-5.0) g/dL 04/15/24 04/15/24 04/15/24 Range/Units 17:04 18:40 21:05 WBC (3.8-10.6) k/uL RBC (4.30-5.90) m/uL Hgb (13.0-17.5) gm/dL Hct (39.0-53.0) % MCV (80.0-100.0) fL MCH (25.0-35.0) pg MCHC (31.0-37.0) g/dL RDW (11.5-15.5) % Plt Count (150-450) k/uL MPV Neutrophils % % Lymphocytes % % Monocytes % % Eosinophils % % Basophils % % Neutrophils # (1.3-7.7) k/uL Lymphocytes # (1.0-4.8) k/uL Monocytes # (0-1.0) k/uL Eosinophils # (0-0.7) k/uL Basophils # (0-0.2) k/uL PT (10.0-12.5) sec INR (<1.2) APTT (22.0-30.0) sec Sodium (137-145) mmol/L Potassium (3.5-5.1) mmol/L Chloride (98-107) mmol/L Carbon Dioxide (22-30) mmol/L Anion Gap mmol/L BUN (9-20) mg/dL Creatinine (0.66-1.25) mg/dL Est GFR (CKD-EPI)AfAm (>60 ml/min/1.73 sqM) Est GFR (CKD-EPI)NonAf (>60 ml/min/1.73 sqM) Glucose (74-99) mg/dL Lactic Ac Sepsis Rflx Y Plasma Lactic Acid Miguel A 2.6 H* 1.5 (0.7-2.0) mmol/L Calcium (8.4-10.2) mg/dL Total Bilirubin (0.2-1.3) mg/dL AST (17-59) U/L ALT (4-49) U/L Alkaline Phosphatase (38-126) U/L Total Protein (6.3-8.2) g/dL Albumin (3.5-5.0) g/dL Disposition <Claribel Jaramillo - Last Filed: 04/15/24 17:36> Time of Disposition: 22:00 <Ct Keenan - Last Filed: 04/16/24 02:08> Clinical Impression: Occlusion of right femoral artery Disposition: ADMITTED IP TO THIS HOSP Condition: Stable
--- NOTE | 2024-04-15 21:20 | CT ---
EXAMINATION TYPE: CT angio lower extremity RT DATE OF EXAM: 04/15/2024 8:56 PM COMPARISON: None. CLINICAL INDICATION: Male, 73 years old with history of recent fem bypass numbness coolness to leg, R ecent fem bypass numbness coolness to legs., TECHNIQUE: Axial imaging was performed with sagittal coronal reformats. 3D reconstruction performed o n a separate workstation. CONTRAST: CTA thoracic and abdominal aorta with 3-D reconstruction is performed and with IV Contrast, patient i njected with 100 ml mL of Isovue 370. Contrast CTA of the abdominal aorta with runoff of the lower extremity arterial system was performed from the lung bases through the ankles and feet. 3-D reconstruction imaging obtained at a separate wo rkstation. CT DLP: 1520.1 mGycm, Automated exposure control for dose reduction was used. FINDINGS: ABDOMINAL AORTA: There is a fusiform aneurysm noted involving the distal abdominal aorta measuring 3. 4 cm AP dimension with mural thrombus seen. Iliac vessels: Short segment complete occlusion of the proximal left common iliac artery with recons titution prior to the bifurcation. Moderate stenosis of the bilateral common iliac arteries. Approxim ately 50-60% stenosis of the external iliac arteries due to mixed calcified plaque. Femoral arteries: Interval femorofemoral bypass graft. There is occlusion noted at the right femoral artery anastomosis. See image 117 of [id number] sequence 401. There is reconstitution via the right superfic ial femoral artery. Left-sided anastomosis is patent. Multifocal varying degrees of moderate stenosis involving the bilateral superficial femoral arteries, most pronounced in the distal left superficial femoral artery. Popliteal and runoff vessels below the knee: Demonstration thrombosed left popliteal artery aneurysm measuring approximately 2.1 x 2.0 cm. There is reconstitution of the distal left popliteal artery. Di minutive caliber of the bilateral tibioperoneal trunks. Three-vessel flow at the level of the right m id calf. There is three-vessel runoff with faint opacification of the right peroneal artery at the le christian of the ankle. There is diminutive three-vessel flow in the mid left lower extremity. Left anterio r tibial and peroneal arteries appear occluded distally with single vessel runoff via the left flight communications operator ior tibial artery. IMPRESSION: 1. Interval femorofemoral bypass graft. There is occlusion noted at the right femoral artery anastomo sis. See image 117 of [id number] sequence 401. Reconstitution distally via the superficial femoral artery. 2. 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 3. Diffuse plaque disease as noted above. Diffuse mixed calcific and soft plaque throughout the iliac and femoral vessels with va rying degrees of narrowing as described above. [facility], , 04/15/2024 9:17 PM
[2024-04-15] MEDS: SODIUM CHLORIDE 0.9% 1,000 ML IV STA (21:33)
[2024-04-15] MEDS ORDERED: NALOXONE 0.4 MG/ML 1 ML VIAL IV PRN (22:00)
[2024-04-15] MEDS ORDERED: ACETAMINOPHEN TAB 325 MG TAB PO PRN (22:00)
[2024-04-15] MEDS ORDERED: ONDANSETRON 4 MG/2 ML VIAL IVP PRN (22:00)
[2024-04-15] MEDS: HEPARIN SODIUM 1,000 UN/ML (10ML VL) IV ONE (22:04)
[2024-04-15] MEDS: HEPARIN SOD,PORK IN 0.45% NACL 25,000 UNIT in 0.45% NACL 1 250ML.BAG IV SCH (22:05)
[2024-04-15] MEDS: HYDROmorphone 0.5 MG/0.5 ML SYRINGE IVP PRN (23:08)
[2024-04-15] MEDS: SODIUM CHLORIDE 0.9% 1,000 ML IV SCH (23:12)
[2024-04-16 04:45] LABS: Basophils % (A) 0 %; Eosinophils # (A) 0.1 k/uL (0-0.7); Eosinophils % (A) 1 %; HCT 34.8 % (39.0-53.0); HGB 11.3 gm/dL (13.0-17.5); Lymphocytes # (A) 1.4 k/uL (1.0-4.8); Lymphocytes % (A) 17 %; MCH 28.7 pg (25.0-35.0); MCHC 32.4 g/dL (31.0-37.0); MCV 88.6 fL (80.0-100.0); Mean Platelet Volume 7.3; Monocytes # (A) 0.5 k/uL (0-1.0); Monocytes % (A) 6 %; Neutrophils # (A) 5.9 k/uL (1.3-7.7); Neutrophils % (A) 72 %; Platelet Count 204 k/uL (150-450); RBC 3.93 m/uL (4.30-5.90); RDW 13.9 % (11.5-15.5); WBC 8.1 k/uL (3.8-10.6)
[2024-04-16 04:59] LABS: INR 1.2 (<1.2); Partial Thromboplastin Time 43.7 sec (22.0-30.0); Prothrombin Time 12.4 sec (10.0-12.5)
[2024-04-16 06:21] VITALS: PULSE 89; RESP 18
[2024-04-16] MEDS: HEPARIN SODIUM 1,000 UN/ML (10ML VL) IV PRN (06:26)
[2024-04-16] MEDS: APIXABAN 5 MG TAB PO SCH (08:27)
--- NOTE | 2024-04-16 08:43 | P.GSCN ---
History of Present Illness Consult date: 04/16/24 Reason for Consult: Femoral artery occlusion Requesting physician: Ct Keenan History of present illness: This is a pleasant 73-year-old male known to vascular surgical services with peripheral arterial disease who recently underwent right lower extremity stent and right and left common femoral artery thromboendarterectomy with patch angioplasty as well as a femorofemoral bypass with PTFE graft on 04/04/2023 and discharged home on 04/06/2024. Apparently patient came in with complaints of acute onset of right thigh pain that started after he woke up from a nap and was walking around his house. He states it lasted for about an hour and a half. He was brought into the emergency room states that on his right and the pain started subsiding. He had a CTA of the right lower extremity which reported femorofemoral bypass graft with occlusion noted at the right femoral artery anastomosis with reconstitution. Vascular surgery was consulted for femoral artery occlusion. He is currently in the emergency department he was started on a heparin drip, pain is resolved. Right lower extremity is warm to the touch. Sensorimotor intact. He denies any pain in his left lower extremity. No abdominal pain, nausea or vomiting. No shortness of breath or chest pain. Review of Systems A 14 point review systems was completed all pertinent positives and negatives as stated in the HPI. Past Medical History Past Medical History: Coronary Artery Disease (CAD), CVA/TIA Additional Past Medical History / Comment(s): Decrease circulation left lower ext. History of Any Multi-Drug Resistant Organisms: None Reported Past Surgical History: Coronary Bypass/CABG, Heart Catheterization, Heart Catheterization With Stent Additional Past Surgical History / Comment(s): right femorl bypass Date of Last Stent Placement:: 2011 Past Psychological History: No Psychological Hx Reported Smoking Status: Current every day smoker Past Alcohol Use History: None Reported Past Drug Use History: None Reported Medications and Allergies Home Medications Medication Instructions Recorded Confirmed Type ALPRAZolam [Xanax] 0.5 mg PO BID PRN 04/03/24 04/03/24 History Apixaban [Eliquis] 5 mg PO BID 04/03/24 04/03/24 History Furosemide [Lasix] 20 mg PO Q48H 04/03/24 04/03/24 History Meclizine [Antivert] 25 mg PO TID PRN 04/03/24 04/03/24 History Rosuvastatin Calcium [Crestor] 40 mg PO HS 04/03/24 04/03/24 History Aspirin 81 mg PO DAILY #30 tab 04/06/24 Rx HYDROcodone/APAP 5-325MG [[place] 2 each PO Q4HR PRN #18 tab 04/06/24 Rx 5-325] Metoprolol Succinate (ER) [Toprol 25 mg PO DAILY #30 tab 04/06/24 Rx XL] Sacubitril/Valsartan [Entresto 24 1 each PO BID #60 tab 04/06/24 Rx mg-26 mg Tablet] Spironolactone [Aldactone] 12.5 mg PO DAILY #30 tab 04/06/24 Rx amLODIPine [Norvasc] 5 mg PO DAILY #15 tab 04/06/24 04/03/24 Rx Allergies Allergy/AdvReac Type Severity Reaction Status Date / Time clindamycin Allergy Rash/Hives Verified 04/03/24 15:54 Surgical - Exam Vital Signs Temp Pulse Resp BP Pulse Ox 98.5 F 70 20 102/56 97 04/15/24 16:45 04/15/24 16:45 04/15/24 16:45 04/15/24 16:45 04/15/24 16:45 General appearance: The patient is alert, oriented, appears in no acute distress. HET: Head is normocephalic and atraumatic. Pupils are equal and reactive. Neck: Supple. Heart: Regular. Lungs: Equal expansion, normal respiratory effort. Abdomen: Soft, nontender, nondistended. Extremities: Normal skin color and turgor. Bilateral groins with surgical incisions well-approximated with tessa. Mild erythema surrounding incision. Bilateral femoral, popliteal, PT and DP signals. Right foot is minimally cooler than the left. Otherwise lower extremities are warm to the touch. Sensorimotor intact. Brisk capillary refill to right toes. Neurological: No focal deficits. Alert and oriented. Results - Labs 04/16/24 04:26 04/15/24 17:04 Abnormal Lab Results - Last 24 Hours (Table) 04/15/24 04/15/24 04/15/24 Range/Units 17:04 17:04 17:04 RBC 4.20 L (4.30-5.90) m/uL Hgb 12.1 L (13.0-17.5) gm/dL Hct 36.5 L (39.0-53.0) % INR (<1.2) APTT 30.8 H (22.0-30.0) sec Sodium 131 L (137-145) mmol/L Glucose 120 H (74-99) mg/dL Plasma Lactic Acid Miguel A (0.7-2.0) mmol/L Calcium 8.3 L (8.4-10.2) mg/dL Albumin 3.0 L (3.5-5.0) g/dL 04/15/24 04/16/24 04/16/24 Range/Units 17:04 04:26 04:26 RBC 3.93 L (4.30-5.90) m/uL Hgb 11.3 L (13.0-17.5) gm/dL Hct 34.8 L (39.0-53.0) % INR 1.2 H (<1.2) APTT 43.7 H (22.0-30.0) sec Sodium (137-145) mmol/L Glucose (74-99) mg/dL Plasma Lactic Acid Miguel A 2.6 H* (0.7-2.0) mmol/L Calcium (8.4-10.2) mg/dL Albumin (3.5-5.0) g/dL Diabetes panel 04/15/24 Range/Units 17:04 Sodium 131 L (137-145) mmol/L Potassium 4.0 (3.5-5.1) mmol/L Chloride 102 (98-107) mmol/L Carbon Dioxide 26 (22-30) mmol/L BUN 16 (9-20) mg/dL Creatinine 1.06 (0.66-1.25) mg/dL Glucose 120 H (74-99) mg/dL Calcium 8.3 L (8.4-10.2) mg/dL AST 45 (17-59) U/L ALT 49 (4-49) U/L Alkaline Phosphatase 68 (38-126) U/L Total Protein 6.6 (6.3-8.2) g/dL Albumin 3.0 L (3.5-5.0) g/dL Calcium panel 04/15/24 Range/Units 17:04 Calcium 8.3 L (8.4-10.2) mg/dL Albumin 3.0 L (3.5-5.0) g/dL Pituitary panel 04/15/24 Range/Units 17:04 Sodium 131 L (137-145) mmol/L Potassium 4.0 (3.5-5.1) mmol/L Chloride 102 (98-107) mmol/L Carbon Dioxide 26 (22-30) mmol/L BUN 16 (9-20) mg/dL Creatinine 1.06 (0.66-1.25) mg/dL Glucose 120 H (74-99) mg/dL Calcium 8.3 L (8.4-10.2) mg/dL Adrenal panel 04/15/24 Range/Units 17:04 Sodium 131 L (137-145) mmol/L Potassium 4.0 (3.5-5.1) mmol/L Chloride 102 (98-107) mmol/L Carbon Dioxide 26 (22-30) mmol/L BUN 16 (9-20) mg/dL Creatinine 1.06 (0.66-1.25) mg/dL Glucose 120 H (74-99) mg/dL Calcium 8.3 L (8.4-10.2) mg/dL Total Bilirubin 0.9 (0.2-1.3) mg/dL AST 45 (17-59) U/L ALT 49 (4-49) U/L Alkaline Phosphatase 68 (38-126) U/L Total Protein 6.6 (6.3-8.2) g/dL Albumin 3.0 L (3.5-5.0) g/dL - Imaging Comments: CTA right lower extremity reports interval femoral-femoral bypass graft. There is occlusion noted at the right femoral artery anastomosis. See image 06/11/2004 58 sequence for a 1. Reconstitution distally via the superficial femoral artery. 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 Diffuse plaque disease as noted above. Diffuse mixed calcific and soft plaque throughout the iliac and femoral vessels with varying degrees of narrowing as described above. Assessment and Plan Assessment: 1. Right acute thigh pain, now resolved 2. Focal occlusion of right femoral artery anastomosis with reconstitution 3. Peripheral arterial disease with recent femorofemoral bypass and right and left common femoral artery thromboendarterectomy with patch angioplasty 4. Known thrombosed left popliteal artery aneurysm Plan: 1. May discontinue heparin drip and start home dose Eliquis 2. Patient may have heart healthy diet 3. No indication for any vascular surgical intervention at this time 4. Patient has follow-up appointment with Dr. Morataya on 04/20/2024 5. Patient is cleared for discharge from vascular surgery Thank you for this consultation. The impression and plan of care has been dictated as directed. Dr. Simon I performed a history and examination of this patient, discussed the same with the dictator. I agree with the dictator's note ,documented as a scribe. Any additional findings or plans will be noted.
[2024-04-16 10:37] VITALS: BP 108/65
--- NOTE | 2024-04-16 14:31 | P.HPIM ---
History of Present Illness H&P Date: 04/16/24 Chief Complaint: Right thigh pain Patient is a 73-year-old male with past medical history of peripheral arterial disease and recent right lower extremity stent and right and left common femoral artery thromboendarterectomy with patch angioplasty and femorofemoral bypass with PTFE graft on 04/04/2023 who was discharged 10 days ago presented to the ED with the complaints of right thigh pain. The symptoms started yesterday when he woke up from a nap and he started to feel his right leg was wobbly. The pain started shortly after and was a 6-7 out of 10 severity and it was cramping in nature. The pain starts in his thigh and radiates down his right leg. Patient's mentions that his leg was cool to touch. He also mentions of tingling in his toes of the right foot. Denies any trauma or injury to the leg. He states having similar symptoms in his left leg over a week ago and at that time he underwent an emergent surgery. His symptoms lasted for about an hour. Denies fever, chills, chest pain, shortness of breath, abdominal pain, nausea, vomiting, dysuria, hematuria, hematochezia, melena. ED documentation reviewed. In the ED patient was treated with Heparin and normal saline. Vitals on admission T 98.5 F, [place] 70 bpm, RR 20, BP 102/56, oxygen saturation 97% on room air EKG independently interpreted as CTA of the lower extremity shows interval femorofemoral bypass graft, occlusion noted to the right femoral artery anastomosis, reconstitution distally via the superficial femoral artery. 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 Diffuse plaque disease with varying degrees of narrowing Labs on admission show hemoglobin 12.1, APTT 30.8, INR 1.1, sodium 131, lactic acid 2.6->1.5 Review of systems: Pertinent positives and negatives as discussed in HPI, a complete review of systems was performed and all other systems are negative. PMH: CAD, CVA/TIA, peripheral arterial disease PSH: CABG, femoral bypass Social history: Tobacco: Denies use Alcohol: Denies use Recreational drugs: Denies use Travel: Travel history Sick contacts: None Physical examination: Vital signs reviewed General: nontoxic, no distress, appears at stated age Derm: warm, dry, intact Head: atraumatic, normocephalic, symmetric Eyes: EOMI, anicteric sclera Mouth: no lip lesion, mucus membranes moist Cardiovascular: S1 S2 reg, no murmur Lungs: CTA bilateral, no rhonchi, no rales, no accessory muscle use Abdominal: soft, non-tender to palpation Extremities: Right foot is cooler than left Neuro: Alert, Oriented, Gross neurological examination did not reveal any focal deficits. Psych: well appearing, appropriate affect Assessment/Plan: Patient is a 73-year-old male with past medical history of peripheral arterial disease and recent right lower extremity stent and right and left common femoral artery thromboendarterectomy with patch angioplasty and femorofemoral bypass with PTFE graft on 04/04/2023 who was discharged 10 days ago presented to the ED with the complaints of right thigh pain. He has been admitted for further workup of the same. Active: #. Right acute thigh pain CTA of the lower extremity shows focal occlusion of right femoral artery anastomosis with reconstitution Heparin drip in the ED, now discontinued Continue home med apixaban 5 mg p.o. twice daily Continue acetaminophen 60 mg p.o. every 6 hours as needed, Dilaudid 0.5 mg IV every 3 hours as needed Continue telemetry monitoring Vascular surgery is consulted #. Nausea and vomiting Continue ondansetron 4 mg IVP every 8 hours as needed Chronic: #. Peripheral arterial disease s/p recent femorofemoral bypass and right and left common femoral artery thromboendarterectomy with patch angioplasty Continue home med apixaban 5 mg p.o. twice daily Vascular surgery is following #. Hypertension Continue amlodipine 5 mg p.o. daily #. History of ischemic cardiomyopathy Continue home meds furosemide 20 mg p.o. every 48 hours, spironolactone 12.5 mg p.o. daily, Entresto 1 tablet p.o. twice daily #. Hyperlipidemia Continue rosuvastatin 40 mg p.o. at bedtime #. Vertigo Continue meclizine 25 mg p.o. 3 times daily F: None E: Replete as required N: Heart healthy diet A: Ambulatory DVT prophylaxis: Apixaban 5 mg p.o. twice daily The patient is admitted with an anticipated less than 2 midnight stay for evaluation of right thigh pain CODE STATUS: Full code Discussed with: Patient and Anticipated discharge place: Home Past Medical History Past Medical History: Coronary Artery Disease (CAD), CVA/TIA Additional Past Medical History / Comment(s): Decrease circulation left lower ext. History of Any Multi-Drug Resistant Organisms: None Reported Past Surgical History: Coronary Bypass/CABG, Heart Catheterization, Heart Catheterization With Stent Additional Past Surgical History / Comment(s): right femorl bypass Date of Last Stent Placement:: 2011 Past Psychological History: No Psychological Hx Reported Smoking Status: Current every day smoker Past Alcohol Use History: None Reported Past Drug Use History: None Reported Medications and Allergies Home Medications Medication Instructions Recorded Confirmed Type ALPRAZolam [Xanax] 0.5 mg PO BID PRN 04/03/24 04/16/24 History Apixaban [Eliquis] 5 mg PO BID 04/03/24 04/16/24 History Furosemide [Lasix] 20 mg PO Q48H 04/03/24 04/16/24 History Meclizine [Antivert] 25 mg PO TID PRN 04/03/24 04/16/24 History Rosuvastatin Calcium [Crestor] 40 mg PO HS 04/03/24 04/16/24 History Aspirin 81 mg PO DAILY #30 tab 04/06/24 04/16/24 Rx Metoprolol Succinate (ER) [Toprol 25 mg PO DAILY #30 tab 04/06/24 04/16/24 Rx XL] Spironolactone [Aldactone] 12.5 mg PO DAILY #30 tab 04/06/24 04/16/24 Rx amLODIPine [Norvasc] 5 mg PO DAILY #15 tab 04/06/24 04/16/24 Rx HYDROcodone/APAP 5-325MG [[place] 2 tab PO Q4HR PRN 04/16/24 04/16/24 History 5-325] Sacubitril/Valsartan [Entresto 24 1 tab PO BID 04/16/24 04/16/24 History mg-26 mg Tablet] Allergies Allergy/AdvReac Type Severity Reaction Status Date / Time clindamycin Allergy Rash/Hives Verified 04/16/24 10:26 Physical Exam Vitals: Vital Signs Temp Pulse Resp BP Pulse Ox 04/16/24 06:14 89 18 129/73 93 L 04/16/24 02:45 85 17 112/53 97 04/15/24 23:02 77 12 107/59 97 04/15/24 16:45 98.5 F 70 20 102/56 97 Intake and Output 04/15/24 04/16/24 04/16/24 22:59 06:59 14:59 Intake Total 83.783 Balance 83.783 Intake: Intake, IV Titration 83.783 Amount Heparin Sod,Pork in 0.45% 83.783 NaCl 25,000 unit In 0.45 % NaCl 1 250ml.bag @ 10.2 UNITS/KG/HR 9.994 mls/hr IV .Q24H [facility] Rx#: [id number] Other: Weight 97.976 kg Results CBC & Chem 7: 04/16/24 04:26 04/15/24 17:04 Labs: Abnormal Lab Results - Last 24 Hours (Table) 04/15/24 04/15/24 04/15/24 Range/Units 17:04 17:04 17:04 RBC 4.20 L (4.30-5.90) m/uL Hgb 12.1 L (13.0-17.5) gm/dL Hct 36.5 L (39.0-53.0) % INR (<1.2) APTT 30.8 H (22.0-30.0) sec Sodium 131 L (137-145) mmol/L Glucose 120 H (74-99) mg/dL Plasma Lactic Acid Miguel A (0.7-2.0) mmol/L Calcium 8.3 L (8.4-10.2) mg/dL Albumin 3.0 L (3.5-5.0) g/dL 04/15/24 04/16/24 04/16/24 Range/Units 17:04 04:26 04:26 RBC 3.93 L (4.30-5.90) m/uL Hgb 11.3 L (13.0-17.5) gm/dL Hct 34.8 L (39.0-53.0) % INR 1.2 H (<1.2) APTT 43.7 H (22.0-30.0) sec Sodium (137-145) mmol/L Glucose (74-99) mg/dL Plasma Lactic Acid Miguel A 2.6 H* (0.7-2.0) mmol/L Calcium (8.4-10.2) mg/dL Albumin (3.5-5.0) g/dL
--- NOTE | 2024-04-16 14:37 | P.DS ---
Providers Date of admission: 04/15/24 21:45 Expected date of discharge: 04/16/24 Attending physician: Joshua Ramirez Consults: 04/15/24 22:00 Consult Physician Urgent Consulting Provider: Pina Simon Consult Reason/Comments: femoral artery occlusion Do you want consulting provider notified?: Already Contacted Primary care physician: Martin Mark [facility] Course: Discharge diagnosis: Right acute thigh pain Nausea and vomiting Peripheral arterial disease s/p recent femorofemoral bypass right and left common femoral artery thromboendarterectomy with patch angioplasty Hypertension History of ischemic cardiomyopathy Hyperlipidemia Vertigo Hospital Course: Patient is a 73-year-old male with past medical history of peripheral arterial disease and recent right lower extremity stent and right and left common femoral artery thromboendarterectomy with patch angioplasty and femorofemoral bypass with PTFE graft on 04/04/2023 who was discharged 10 days ago presented to the ED with the complaints of right thigh pain. The symptoms started yesterday when he woke up from a nap and he started to feel his right leg was wobbly. The pain started shortly after and was a 6-7 out of 10 severity and it was cramping in nature. The pain starts in his thigh and radiates down his right leg. Patient's mentions that his leg was cool to touch. He also mentions of tingling in his toes of the right foot. Denies any trauma or injury to the leg. He states having similar symptoms in his left leg over a week ago and at that time he underwent an emergent surgery. His symptoms lasted for about an hour. Denies fever, chills, chest pain, shortness of breath, abdominal pain, nausea, vomiting, dysuria, hematuria, hematochezia, m alcides.Vitals on admission T 98.5 F, [place] 70 bpm, RR 20, BP 102/56, oxygen saturation 97% on room air. EKG independently interpreted as. CTA of the lower extremity shows interval femorofemoral bypass graft, occlusion noted to the right femoral artery anastomosis, reconstitution distally via the superficial femoral artery. . 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 Diffuse plaque disease with varying degrees of narrowing. Labs on admission show hemoglobin 12.1, APTT 30.8, INR 1.1, sodium 131, lactic acid 2.6->1.5. 04/16/24: Patient seen and examined at bedside today. He mentions that the pain is resolved now. Labs today show hemoglobin 11.3, INR 1.2, APTT 43.7, triglycerides 153, HDL 22.6. The patient was seen by vascular surgery who recommended no vascular surgical intervention at this time. Patient seen at bedside today and is feeling good and excited about discharge. Patient will be discharged today and is given a script for meloxicam and Pepcid for 14 days Patient is advised to be compliant with medications. Patient is advised to follow-up with PCP in 1-[address] Morataya on 04/20/24. Vital signs are reviewed and stable General: nontoxic, no distress, appears at stated age Derm: warm, dry, intact Head: atraumatic, normocephalic, symmetric Eyes: EOMI, anicteric sclera Mouth: no lip lesion, mucus membranes moist Cardiovascular: S1 S2 reg, no murmur Lungs: CTA bilateral, no rhonchi, no rales, no accessory muscle use Abdominal: soft, non-tender to palpation Extremities: Right foot is cooler than left Neuro: Alert, Oriented, Gross neurological examination did not reveal any focal deficits. Psych: well appearing, appropriate affect A total of 30 minutes of time were spent preparing this complex discharge summary. Patient was discharged on 04/16/24 at 1445. Patient Condition at Discharge: Stable Plan - Discharge Summary New Discharge Prescriptions: New Meloxicam [Mobic] 15 mg PO DIRECTED PRN 14 Days #14 tab PRN Reason: Pain Famotidine [Pepcid] 20 mg PO DAILY 14 Days #14 tablet Continue Apixaban [Eliquis] 5 mg PO BID ALPRAZolam [Xanax] 0.5 mg PO BID PRN PRN Reason: Anxiety Spironolactone [Aldactone] 12.5 mg PO DAILY #30 tab amLODIPine [Norvasc] 5 mg PO DAILY #15 tab Furosemide [Lasix] 20 mg PO Q48H Rosuvastatin Calcium [Crestor] 40 mg PO HS Meclizine [Antivert] 25 mg PO TID PRN PRN Reason: Vertigo Aspirin 81 mg PO DAILY #30 tab Metoprolol Succinate (ER) [Toprol XL] 25 mg PO DAILY #30 tab HYDROcodone/APAP 5-325MG [[place] 5-325] 2 tab PO Q4HR PRN PRN Reason: Pain Scale 8 To 10 Sacubitril/Valsartan [Entresto 24 mg-26 mg Tablet] 1 tab PO BID Discharge Medication List ALPRAZolam [Xanax] 0.5 mg PO BID PRN 04/03/24 [History] Apixaban [Eliquis] 5 mg PO BID 04/03/24 [History] Furosemide [Lasix] 20 mg PO Q48H 04/03/24 [History] Meclizine [Antivert] 25 mg PO TID PRN 04/03/24 [History] Rosuvastatin Calcium [Crestor] 40 mg PO HS 04/03/24 [History] Aspirin 81 mg PO DAILY #30 tab 04/06/24 [Rx] Metoprolol Succinate (ER) [Toprol XL] 25 mg PO DAILY #30 tab 04/06/24 [Rx] Spironolactone [Aldactone] 12.5 mg PO DAILY #30 tab 04/06/24 [Rx] amLODIPine [Norvasc] 5 mg PO DAILY #15 tab 04/06/24 [Rx] Famotidine [Pepcid] 20 mg PO DAILY 14 Days #14 tablet 04/16/24 [Rx] HYDROcodone/APAP 5-325MG [[place] 5-325] 2 tab PO Q4HR PRN 04/16/24 [History] Meloxicam [Mobic] 15 mg PO DIRECTED PRN 14 Days #14 tab 04/16/24 [Rx] Sacubitril/Valsartan [Entresto 24 mg-26 mg Tablet] 1 tab PO BID 04/16/24 [History] Follow up Appointment(s)/Referral(s): Martin Flores DO [Primary Care Provider] - 1-2 days Gilberto Morataya DO [STAFF PHYSICIAN] - 04/20/24
== END 2024-04-16 15:32 | disposition home or self-care (01) | DRG 300 ==
LOC: EC 16:39 → 3SCARD 21:45
PROVIDERS: ADMIT Hospitalist; ATTEND Hospitalist
DX: I70.321 Atherosclerosis of unspecified type of bypass graft(s) of the extremities with rest pain, right leg (principal); I74.3 Embolism and thrombosis of arteries of the lower extremities; I72.4 Aneurysm of artery of lower extremity; I70.302 Unspecified atherosclerosis of unspecified type of bypass graft(s) of the extremities, left leg; I10 Essential (primary) hypertension; I25.10 Atherosclerotic heart disease of native coronary artery without angina pectoris; R11.2 Nausea with vomiting, unspecified; E78.5 Hyperlipidemia, unspecified; I25.5 Ischemic cardiomyopathy; R42 Dizziness and giddiness; Z79.01 Long term (current) use of anticoagulants; Z79.82 Long term (current) use of aspirin; Z79.899 Other long term (current) drug therapy; Z95.1 Presence of aortocoronary bypass graft; Z86.73 Personal history of transient ischemic attack (TIA), and cerebral infarction without residual deficits
CPT/HCPCS: 36415; 80053; 83605; 85025; 85610; 85730; 96361; 96365; 96366; 96375; 96376; 99285

== ENCOUNTER 2024-05-06 09:32 | Inpatient (IN) | payer MEDICARE, BC ==
--- NOTE | 2024-05-06 10:10 | ED ---
General Adult HPI - General Chief complaint: Recheck/Abnormal Lab/Rx Stated complaint: poss infection Time Seen by Provider: 05/06/24 09:37 Source: patient, RN notes reviewed, old records reviewed Mode of arrival: ambulatory Limitations: no limitations - History of Present Illness Initial comments: 73-year-old male presenting for confusion. Symptoms worsened today and family thought there was possible infection, possible UTI. Patient had femoral bypass approximately 1 month ago. and daughter indicate that he has been tired and has had a poor appetite for the past several days. Patient does have prior history of CAD status post bypass and aortic valve replacement he also has previous history of TIA and CVA. - Related Data Home Medications Medication Instructions Recorded Confirmed ALPRAZolam [Xanax] 0.5 mg PO BID PRN 04/03/24 04/16/24 Apixaban [Eliquis] 5 mg PO BID 04/03/24 04/16/24 Furosemide [Lasix] 20 mg PO Q48H 04/03/24 04/16/24 Meclizine [Antivert] 25 mg PO TID PRN 04/03/24 04/16/24 Rosuvastatin Calcium [Crestor] 40 mg PO HS 04/03/24 04/16/24 HYDROcodone/APAP 5-325MG [[place] 2 tab PO Q4HR PRN 04/16/24 04/16/24 5-325] Sacubitril/Valsartan [Entresto 24 1 tab PO BID 04/16/24 04/16/24 mg-26 mg Tablet] Previous Rx's Medication Instructions Recorded Aspirin 81 mg PO DAILY #30 tab 04/06/24 Metoprolol Succinate (ER) [Toprol 25 mg PO DAILY #30 tab 04/06/24 XL] Spironolactone [Aldactone] 12.5 mg PO DAILY #30 tab 04/06/24 amLODIPine [Norvasc] 5 mg PO DAILY #15 tab 04/06/24 Famotidine [Pepcid] 20 mg PO DAILY 14 Days #14 tablet 04/16/24 Meloxicam [Mobic] 15 mg PO DIRECTED PRN 14 Days 04/16/24 #14 tab Allergies Allergy/AdvReac Type Severity Reaction Status Date / Time clindamycin Allergy Rash/Hives Verified 05/06/24 09:38 Review of Systems ROS Statement: Those systems with pertinent positive or pertinent negative responses have been documented in the HPI. ROS Other: All systems not noted in ROS Statement are negative. Past Medical History Past Medical History: Coronary Artery Disease (CAD), CVA/TIA Additional Past Medical History / Comment(s): Decrease circulation left lower ext. History of Any Multi-Drug Resistant Organisms: None Reported Past Surgical History: Coronary Bypass/CABG, Heart Catheterization, Heart Catheterization With Stent Additional Past Surgical History / Comment(s): right femorl bypass Date of Last Stent Placement:: 2011 Past Psychological History: No Psychological Hx Reported Smoking Status: Former smoker Past Alcohol Use History: None Reported Past Drug Use History: None Reported General Exam Limitations: no limitations General appearance: alert, in no apparent distress Head exam: Present: atraumatic, normocephalic Eye exam: Present: normal appearance, PERRL ENT exam: Present: mucous membranes dry Neck exam: Present: normal inspection. Absent: tenderness, meningismus Respiratory exam: Present: normal lung sounds bilaterally. Absent: respiratory distress, wheezes Cardiovascular Exam: Present: regular rate, normal rhythm GI/Abdominal exam: Present: soft, distended. Absent: guarding, rebound Extremities exam: Present: normal inspection, normal capillary refill, other (Bilateral groins: Well-healed incisions without signs of infection) Neurological exam: Present: alert, CN II-XII intact. Absent: oriented X3, motor sensory deficit Skin exam: Present: warm, dry, intact. Absent: cyanosis, diaphoretic Course Vital Signs 05/06/24 05/06/24 09:33 11:25 Temperature 97.4 F L Pulse Rate 86 77 Respiratory 18 18 Rate Blood Pressure 101/65 112/67 O2 Sat by Pulse 99 98 Oximetry Medical Decision Making - Medical Decision Making Was pt. sent in by a medical professional or institution (, PA, [employer]KING [employer]ER, urgent care, hospital, or detention...) When possible be specific @ -No Did you speak to anyone other than the patient for history (EMS, parent, family, police, friend...)? What history was obtained from this source @ -No Did you review nursing and triage notes (agree or disagree)? Why? @ -I reviewed and agree with nursing and triage notes Were old charts reviewed (outside hosp., previous admission, EMS record, old EKG, old radiological studies, urgent care reports/EKG's, detention records)? Report findings @ -No old charts were reviewed Differential Altered Mental Status: Hypoglycemia, DKA, hypercapnia, ETOH, overdose, CO poisoning, trauma, myxedema coma, HTN encephalopathy, infection, encephalitis, psychosis, intercranial hemorrhage, hepatic encephalopathy, meningitis, CVA, this is not meant to be an all-inclusive list EKG interpreted by me (3pts min.). @ -EKG: Artifact limiting assessment, suspect sinus mechanism with a rate of 79 QRS duration 105, QTc [address] segment elevation. X-rays interpreted by me (1pt min.). @ -None done CT interpreted by me (1pt min.). @ -CT brain is negative for intracranial hemorrhage or mass effect U/S interpreted by me (1pt. min.). @ -None done What testing was considered but not performed or refused? (CT, X-rays, U/S, labs)? Why? @ -None What meds were considered but not given or refused? Why? @ -None Did you discuss the management of the patient with other professionals (professionals i.e. , PA, CANDLE[employer]KING [employer]ORER, lab, RT, psych nurse, high school social studies teacher, apartment locator, teacher, forest fire management officer, field nurse case manager)? Give summary @Case discussed with [facility] who will admit Was smoking cessation discussed for >3mins.? @ -No Was critical care preformed (if so, how long)? @ -No Were there social determinants of health that impacted care today? How? (Homelessness, low income, unemployed, alcoholism, drug addiction, transportation, low edu. Level, literacy, decrease access to med. care, assisted, rehab)? @ -No Was there de-escalation of care discussed even if they declined (Discuss DNR or withdrawal of care, Hospice)? DNR status @ -No What co-morbidities impacted this encounter? (DM, HTN, Smoking, COPD, CAD, Ca ncer, CVA, ARF, Chemo, Hep., AIDS, mental health diagnosis, sleep apnea, morbid obesity)? @ -None Was patient admitted / discharged? Hospital course, mention meds given and route, prescriptions, significant lab abnormalities, going to OR and other pertinent info. @ -73-year-old male with increasing confusion, poor appetite. Patient has nonfocal exam, initial vitals are stable. CT brain is negative for intracranial hemorrhage. He has white blood cell count of 11. Creatinine 1.49. His urina lysis is positive for greater than 182 red cells without leukocytosis or bacteria. Urine culture is obtained. Normal lactic acid. Patient given IV fluids and a dose of IV antibiotics for possible UTI. He will be admitted for hydration and monitoring. Undiagnosed new problem with uncertain prognosis? @ -No Drug Therapy requiring intensive monitoring for toxicity (Heparin, Nitro, Insulin, Cardizem)? @ -No Were any procedures done? @ -No Diagnosis/symptom? @Altered mental status, dehydration Acute, or Chronic, or Acute on Chronic? @ -Acute Uncomplicated (without systemic symptoms) or Complicated (systemic symptoms)? @ -Default Side effects of treatment? @ -No Exacerbation, Progression, or Severe Exacerbation? @ -No Poses a threat to life or bodily function? How? (Chest pain, [place], [place], pneumonia, PE, COPD, DKA, ARF, appy, cholecystitis, CVA, Diverticulitis, Homicidal, Suicidal, threat to staff... and all critical care pts) @ -Yes, dehydration, sepsis - Lab Data Result diagrams: 05/06/24 10:15 05/06/24 10:15 Lab Results 05/06/24 05/06/24 05/06/24 Range/Units 10:15 10:15 10:15 WBC 11.1 H (3.8-10.6) k/uL RBC 4.21 L (4.30-5.90) m/uL Hgb 11.6 L (13.0-17.5) gm/dL Hct 36.0 L (39.0-53.0) % MCV 85.6 (80.0-100.0) fL MCH 27.5 (25.0-35.0) pg MCHC 32.1 (31.0-37.0) g/dL RDW 13.6 (11.5-15.5) % Plt Count 215 (150-450) k/uL MPV 7.3 Neutrophils % 74 % Lymphocytes % 16 % Monocytes % 6 % Eosinophils % 1 % Basophils % 0 % Neutrophils # 8.2 H (1.3-7.7) k/uL Lymphocytes # 1.8 (1.0-4.8) k/uL Monocytes # 0.6 (0-1.0) k/uL Eosinophils # 0.1 (0-0.7) k/uL Basophils # 0.0 (0-0.2) k/uL PT 13.4 H (10.0-12.5) sec INR 1.3 H (<1.2) APTT 33.8 H (22.0-30.0) sec Sodium (137-145) mmol/L Potassium (3.5-5.1) mmol/L Chloride (98-107) mmol/L Carbon Dioxide (22-30) mmol/L Anion Gap mmol/L BUN (9-20) mg/dL Creatinine (0.66-1.25) mg/dL Est GFR (CKD-EPI)AfAm (>60 ml/min/1.73 sqM) Est GFR (CKD-EPI)NonAf (>60 ml/min/1.73 sqM) Glucose (74-99) mg/dL Plasma Lactic Acid Miguel A (0.7-2.0) mmol/L Calcium (8.4-10.2) mg/dL Magnesium (1.6-2.3) mg/dL Total Bilirubin (0.2-1.3) mg/dL AST (17-59) U/L ALT (4-49) U/L Alkaline Phosphatase (38-126) U/L Total Protein (6.3-8.2) g/dL Albumin (3.5-5.0) g/dL Urine Color Light Red Urine Appearance Cloudy (Clear) Urine pH 8.5 H (5.0-8.0) Ur Specific [place] 1.019 (1.001-1.035) Urine Protein 2+ H (Negative) Urine Glucose (UA) Negative (Negative) Urine Ketones Trace H (Negative) Urine Blood Large H (Negative) Urine Nitrite Negative (Negative) Urine Bilirubin Negative (Negative) Urine Urobilinogen <2.0 (<2.0) mg/dL Ur Leukocyte Esterase Negative (Negative) Urine RBC >182 H (0-5) /hpf Urine WBC 6 H (0-5) /hpf Ur Squamous Epith Cells 1 (0-4) /hpf Urine Mucus Rare H (None) /hpf Influenza Type A (PCR) (Not Detectd) Influenza Type B (PCR) (Not Detectd) RSV (PCR) (Not Detectd) SARS-CoV-2 (PCR) (Not Detectd) 05/06/24 05/06/24 05/06/24 Range/Units 10:15 10:15 12:37 WBC (3.8-10.6) k/uL RBC (4.30-5.90) m/uL Hgb (13.0-17.5) gm/dL Hct (39.0-53.0) % MCV (80.0-100.0) fL MCH (25.0-35.0) pg MCHC (31.0-37.0) g/dL RDW (11.5-15.5) % Plt Count (150-450) k/uL MPV Neutrophils % % Lymphocytes % % Monocytes % % Eosinophils % % Basophils % % Neutrophils # (1.3-7.7) k/uL Lymphocytes # (1.0-4.8) k/uL Monocytes # (0-1.0) k/uL Eosinophils # (0-0.7) k/uL Basophils # (0-0.2) k/uL PT (10.0-12.5) sec INR (<1.2) APTT (22.0-30.0) sec Sodium 129 L (137-145) mmol/L Potassium 3.6 (3.5-5.1) mmol/L Chloride 102 (98-107) mmol/L Carbon Dioxide 19 L (22-30) mmol/L Anion Gap 8 mmol/L BUN 17 (9-20) mg/dL Creatinine 1.49 H (0.66-1.25) mg/dL Est GFR (CKD-EPI)AfAm 53 (>60 ml/min/1.73 sqM) Est GFR (CKD-EPI)NonAf 45 (>60 ml/min/1.73 sqM) Glucose 132 H (74-99) mg/dL Plasma Lactic Acid Miguel A 2.0 (0.7-2.0) mmol/L Calcium 8.3 L (8.4-10.2) mg/dL Magnesium 2.1 (1.6-2.3) mg/dL Total Bilirubin 1.2 (0.2-1.3) mg/dL AST 46 (17-59) U/L ALT 37 (4-49) U/L Alkaline Phosphatase 83 (38-126) U/L Total Protein 6.7 (6.3-8.2) g/dL Albumin 2.8 L (3.5-5.0) g/dL Urine Color Urine Appearance (Clear) Urine pH (5.0-8.0) Ur Specific [place] (1.001-1.035) Urine Protein (Negative) Urine Glucose (UA) (Negative) Urine Ketones (Negative) Urine Blood (Negative) Urine Nitrite (Negative) Urine Bilirubin (Negative) Urine Urobilinogen (<2.0) mg/dL Ur Leukocyte Esterase (Negative) Urine RBC (0-5) /hpf Urine WBC (0-5) /hpf Ur Squamous Epith Cells (0-4) /hpf Urine Mucus (None) /hpf Influenza Type A (PCR) Not Detected (Not Detectd) Influenza Type B (PCR) Not Detected (Not Detectd) RSV (PCR) Not Detected (Not Detectd) SARS-CoV-2 (PCR) Not Detected (Not Detectd) Disposition Clinical Impression: Dehydration, AMS (altered mental status) Disposition: ADMITTED IP TO THIS [facility] Condition: Stable Is patient prescribed a controlled substance at d/c from ED?: No Referrals: Martin Flores DO [Primary Care Provider] - 1-2 days Time of Disposition: 13:27
[2024-05-06] MEDS: SODIUM CHLORIDE 0.9% 500 ML 500 ML IV ONE ×2 (10:18→12:37)
[2024-05-06 10:33] LABS: Basophils % (A) 0 %; Eosinophils # (A) 0.1 k/uL (0-0.7); Eosinophils % (A) 1 %; HGB 11.6 gm/dL (13.0-17.5); Lymphocytes # (A) 1.8 k/uL (1.0-4.8); Lymphocytes % (A) 16 %; MCH 27.5 pg (25.0-35.0); MCHC 32.1 g/dL (31.0-37.0); MCV 85.6 fL (80.0-100.0); Mean Platelet Volume 7.3; Monocytes # (A) 0.6 k/uL (0-1.0); Monocytes % (A) 6 %; Neutrophils # (A) 8.2 k/uL (1.3-7.7); Neutrophils % (A) 74 %; Platelet Count 215 k/uL (150-450); RBC 4.21 m/uL (4.30-5.90); RDW 13.6 % (11.5-15.5); WBC 11.1 k/uL (3.8-10.6)
[2024-05-06 10:44] LABS: INR 1.3 (<1.2); Partial Thromboplastin Time 33.8 sec (22.0-30.0); Prothrombin Time 13.4 sec (10.0-12.5)
[2024-05-06 10:49] LABS: Appearance,Urine Cloudy (Clear); Bilirubin,Urine Negative (Negative); Blood,Urine Large (Negative); Color,Urine Light Red; Glucose,Urine (UA) Negative (Negative); Ketones,Urine Trace (Negative); Leukocyte Esterase,Urine Negative (Negative); Mucus,Urine Rare /hpf; Nitrite,Urine Negative (Negative); PH, Urine 8.5 (5.0-8.0); Protein,Urine 2+ (Negative); RBC,Urine >182 /hpf (0-5); Specific Gravity,Urine 1.019 (1.001-1.035); Squamous Epithelial Cell,Urine 1 /hpf (0-4); Urobilinogen,Urine <2.0 mg/dL (<2.0); WBC,Urine 6 /hpf (0-5)
[2024-05-06 10:51] LABS: ALT 37 U/L (4-49); AST 46 U/L (17-59); African American GFR (CKD) 53 (>60 ml/min/1.73 sqM); Albumin 2.8 g/dL (3.5-5.0); Alkaline Phosphatase 83 U/L (38-126); Anion Gap 8 mmol/L; Blood Urea Nitrogen 17 mg/dL (9-20); Calcium 8.3 mg/dL (8.4-10.2); Carbon Dioxide 19 mmol/L (22-30); Chloride 102 mmol/L (98-107); Glucose 132 mg/dL (74-99); Magnesium 2.1 mg/dL (1.6-2.3); Non-African American GFR(CKD) 45 (>60 ml/min/1.73 sqM); Potassium 3.6 mmol/L (3.5-5.1); Sodium 129 mmol/L (137-145); Total Bilirubin 1.2 mg/dL (0.2-1.3); Total Protein 6.7 g/dL (6.3-8.2)
--- NOTE | 2024-05-06 11:00 | CT ---
EXAMINATION TYPE: CT brain wo con DATE OF EXAM: 05/06/2024 COMPARISON: None CLINICAL INDICATION: Male, 73 years old with history of Altered mental status; PHH, AMS CT DLP: 1154.4 mGycm Automated exposure control for dose reduction was used. Findings: The ventricles, basal cisterns and sulci over the convexities are moderately enlarged. There is mild- to-moderate decreased density in the periventricular white matter consistent with chronic ischemic wh ite matter demyelination. There is no mass effect or shift of the midline structures. There is no acute intra or extra-axial hemorrhage. The posterior fossa including the brainstem, fourth ventricle and cerebellar pontine angles appear no rmal. Intraorbital contents appear normal and symmetric. Visualized paranasal sinuses and mastoid air cells are well aerated. The calvarium is intact. IMPRESSION: 1. No acute bleed or mass effect. 2. Senescent atrophy and ischemic white matter changes as described above. [facility], , 05/06/2024 10:58 AM
[2024-05-06] MEDS: SODIUM CHLORIDE 0.9% 1,000 ML IV SCH (12:25)
[2024-05-06] MEDS: cefTRIAXone IN SWFI 1,000 MG/10 ML SYRINGE IVP STA (12:31)
[2024-05-06] MEDS: HYDROcodone/APAP 5-325MG 1 EACH TAB PO STA (12:47)
[2024-05-06] MEDS ORDERED: NALOXONE 0.4 MG/ML 1 ML VIAL IV PRN (13:23)
[2024-05-06] MEDS ORDERED: ACETAMINOPHEN TAB 325 MG TAB PO PRN (13:23)
[2024-05-06] MEDS ORDERED: MECLIZINE 25 MG TAB PO PRN (22:56)
[2024-05-06] MEDS ORDERED: ALPRAZolam 0.5 MG TAB PO PRN (22:56)
--- NOTE | 2024-05-06 23:02 | P.HPIM ---
History of Present Illness This is a pleasant 73 years old male with past medical history of multiple problems Information obtained. at bedside Patient has vascular surgery with Dr. Antony about 1 month ago. Presents today with lower abdominal pain. Patient reports not urinating good and 90 sweating His pain is about 4-5/10 in severity, comes and goes and he had it since surgery This morning he was little bit more confused than usual for example he was trying to take temperature using the thermometer and her in the roadway and in the room direction however it is mild confusion now looks better her work Also his urine is not burning but started getting dark this Patient also complaining from constipation He denies chest pain dyspnea, no other GI symptoms no headache dizziness weakness numbness Patient denies smoking alcohol or illicit drugs He is afebrile, blood pressure stable WBC 11.1, hemoglobin 11.6, sodium 129, creatinine 1.4 with baseline about 1.0 Urine analysis showing high amount of blood with 6 WBC EKG showing a supraventricular rhythm at 79 with possible right ventricular hypertrophy and anterolateral infarct CT of the brain is negative for acute process Urine culture is sent and is pending Review of Systems Review of systems CONSTITUTIONAL: No fever, no malaise, no fatigue. HEENT: No recent visual problems or hearing problems. Denied any sore throat. CARDIOVASCULAR: No orthopnea, PND, no palpitations, no syncope. PULMONARY: No shortness of breath, no cough, no hemoptysis. GASTROINTESTINAL: No diarrhea, no nausea, no vomiting, no abdominal pain. Normoactive bowel sounds. NEUROLOGICAL: No headaches, no weakness, no numbness. HEMATOLOGICAL: Denies any bleeding or petechiae. GENITOURINARY: Denies any burning micturition, frequency, or urgency. MUSCULOSKELETAL/RHEUMATOLOGICAL: Denies any joint pain, swelling, or any muscle pain. ENDOCRINE: Denies any polyuria or polydipsia. Past Medical History Past Medical History: Coronary Artery Disease (CAD), CVA/TIA Additional Past Medical History / Comment(s): Decrease circulation left lower ext. History of Any Multi-Drug Resistant Organisms: None Reported Past Surgical History: Coronary Bypass/CABG, Heart Catheterization, Heart Catheterization With Stent Additional Past Surgical History / Comment(s): right femorl bypass Date of Last Stent Placement:: 2011 Past Psychological History: No Psychological Hx Reported Smoking Status: Former smoker Past Alcohol Use History: None Reported Past Drug Use History: None Reported Medications and Allergies Home Medications Medication Instructions Recorded Confirmed Type ALPRAZolam [Xanax] 0.5 mg PO BID PRN 04/03/24 05/06/24 History Apixaban [Eliquis] 5 mg PO BID 04/03/24 05/06/24 History Furosemide [Lasix] 20 mg PO Q48H 04/03/24 05/06/24 History Meclizine [Antivert] 25 mg PO TID PRN 04/03/24 05/06/24 History Rosuvastatin Calcium [Crestor] 40 mg PO HS 04/03/24 05/06/24 History Aspirin 81 mg PO DAILY #30 tab 04/06/24 05/06/24 Rx HYDROcodone/APAP 5-325MG [[place] 1 tab PO Q4HR PRN 04/16/24 05/06/24 History 5-325] Losartan [Cozaar] 50 mg PO HS 05/06/24 05/06/24 History amLODIPine [Norvasc] 10 mg PO DAILY 05/06/24 05/06/24 History Allergies Allergy/AdvReac Type Severity Reaction Status Date / Time clindamycin Allergy Rash/Hives Verified 05/06/24 14:15 Physical Exam Vitals: Vital Signs Temp Pulse Resp BP Pulse Ox 05/06/24 15:35 97.6 F 61 18 99/52 94 L 05/06/24 11:25 77 18 112/67 98 05/06/24 09:33 97.4 F L 86 18 101/65 99 Intake and Output 05/06/24 05/06/24 05/06/24 06:59 14:59 22:59 Other: Weight 90.718 kg GENERAL: The patient is alert and oriented x3, not in any acute distress. Well developed, well nourished. HEENT: Pupils are round and equally reacting to light. EOMI. No scleral icterus. No conjunctival pallor. Normocephalic, atraumatic. No pharyngeal erythema. No t hyromegaly. CARDIOVASCULAR: S1 and S2 present. No murmurs, rubs, or gallops. PULMONARY: Chest is clear to auscultation, no wheezing , no crackles. ABDOMEN: Soft, nontender, nondistended, normoactive bowel sounds. No palpable organomegaly. MUSCULOSKELETAL: No joint swelling or deformity. EXTREMITIES: No cyanosis, clubbing, or pedal edema. NEUROLOGICAL: Gross neurological examination did not reveal any focal deficits. SKIN: No rashes. no petechiae. Results CBC & Chem 7: 05/06/24 10:15 05/06/24 10:15 Labs: Abnormal Lab Results - Last 24 Hours (Table) 05/06/24 05/06/24 05/06/24 Range/Units 10:15 10:15 10:15 WBC 11.1 H (3.8-10.6) k/uL RBC 4.21 L (4.30-5.90) m/uL Hgb 11.6 L (13.0-17.5) gm/dL Hct 36.0 L (39.0-53.0) % Neutrophils # 8.2 H (1.3-7.7) k/uL PT 13.4 H (10.0-12.5) sec INR 1.3 H (<1.2) APTT 33.8 H (22.0-30.0) sec Sodium (137-145) mmol/L Carbon Dioxide (22-30) mmol/L Creatinine (0.66-1.25) mg/dL Glucose (74-99) mg/dL Calcium (8.4-10.2) mg/dL Albumin (3.5-5.0) g/dL Urine pH 8.5 H (5.0-8.0) Urine Protein 2+ H (Negative) Urine Ketones Trace H (Negative) Urine Blood Large H (Negative) Urine RBC >182 H (0-5) /hpf Urine WBC 6 H (0-5) /hpf Urine Mucus Rare H (None) /hpf 05/06/24 Range/Units 10:15 WBC (3.8-10.6) k/uL RBC (4.30-5.90) m/uL Hgb (13.0-17.5) gm/dL Hct (39.0-53.0) % Neutrophils # (1.3-7.7) k/uL PT (10.0-12.5) sec INR (<1.2) APTT (22.0-30.0) sec Sodium 129 L (137-145) mmol/L Carbon Dioxide 19 L (22-30) mmol/L Creatinine 1.49 H (0.66-1.25) mg/dL Glucose 132 H (74-99) mg/dL Calcium 8.3 L (8.4-10.2) mg/dL Albumin 2.8 L (3.5-5.0) g/dL Urine pH (5.0-8.0) Urine Protein (Negative) Urine Ketones (Negative) Urine Blood (Negative) Urine RBC (0-5) /hpf Urine WBC (0-5) /hpf Urine Mucus (None) /hpf Assessment and Plan Assessment: Hematuria, acute. Suspicious for UTI Mild metabolic encephalopathy Mild acute kidney injury Hypovolemic hyponatremia Chronic anemia Plan: Continue with ceftriaxone Continue with normal saline 75 mL/h Follow-up urine culture Labs and medication were reviewed.. Continue same treatment. Continue with symptomatic treatment. Resume home medication. Monitor labs and vitals. DVT and GI prophylaxis. Further recommendations as per clinical course of the patient DVT prophylaxis: Subcutaneous heparin GI Prophylaxis: Pepcid PT/OT: Pending Prognosis is guarded
[2024-05-07] MEDS: HYDROcodone/APAP 5-325MG 1 EACH TAB PO PRN (04:55)
[2024-05-07] MEDS: amLODIPine 10 MG TAB PO SCH (08:32)
[2024-05-07] MEDS: APIXABAN 5 MG TAB PO SCH (08:34)
[2024-05-07] MEDS: ASPIRIN 81 MG PO SCH (08:34)
[2024-05-07] MEDS: FAMOTIDINE 20 MG TAB PO SCH (08:34)
[2024-05-07 08:37] LABS: Basophils # (A) 0.01 X 10*3/uL (0.00-0.10); Basophils % (A) 0.1 %; Eosinophils # (A) 0.04 X 10*3/uL (0.04-0.35); Eosinophils % (A) 0.5 %; HCT 32.5 % (39.6-50.0); HGB 10.4 g/dL (13.0-17.0); Lymphocytes # (A) 2.04 X 10*3/uL (0.90-5.00); Lymphocytes % (A) 23.2 %; MCH 27.2 pg (27.0-32.0); MCV 84.9 FL (80.0-97.0); Mean Platelet Volume 9.2 FL (9.5-12.2); Monocytes # (A) 1.06 X 10*3/uL (0.20-1.00); NRBC Per 100 WBC 0 X 10*3/uL (0.00-0.01); Neutrophils # (A) 5.62 X 10*3/uL (1.80-7.70); Neutrophils % (A) 63.7 %; Platelet Count 186 X 10*3/uL (140-440); RBC 3.83 X 10*6/uL (4.40-5.60); WBC 8.81 X 10*3/uL (4.50-10.00)
[2024-05-07 08:51] LABS: BUN/Creat Ratio 10.43 Ratio (12.00-20.00); Blood Urea Nitrogen 14.6 mg/dL (9.0-27.0); Calcium 8.1 mg/dL (8.7-10.3); Carbon Dioxide 20.9 mmol/L (21.6-31.8); Chloride 100 mmol/L (96-109); Glucose 100 mg/dL (70-110); Potassium 3.8 mmol/L (3.5-5.5); Sodium 132 mmol/L (135-145)
--- NOTE | 2024-05-07 11:05 | P.PN ---
Subjective This is a pleasant 73 years old male with past medical history of multiple problems Information obtained. at bedside Patient has vascular surgery with Dr. Antony about 1 month ago. Presents today with lower abdominal pain. Patient reports not urinating good and 90 sweating His pain is about 4-5/10 in severity, comes and goes and he had it since surgery This morning he was little bit more confused than usual for example he was trying to take temperature using the thermometer and her in the roadway and in the room direction however it is mild confusion now looks better her work Also his urine is not burning but started getting dark this Patient also complaining from constipation He denies chest pain dyspnea, no other GI symptoms no headache dizziness weakness numbness Patient denies smoking alcohol or illicit drugs He is afebrile, blood pressure stable WBC 11.1, hemoglobin 11.6, sodium 129, creatinine 1.4 with baseline about 1.0 Urine analysis showing high amount of blood with 6 WBC EKG showing a supraventricular rhythm at 79 with possible right ventricular hypertrophy and anterolateral infarct CT of the brain is negative for acute process Urine culture is sent and is pending 05/07 Patient feels the same. However no more episodes of confusion He still complains of from the same ongoing lower abdominal pain x 1 month, currently 4/10 He states that hematuria started improving and currently pink currently his aspirin and Eliquis are kept on hold. We can resume soon once cleared by urologist or if his hemoglobin remained stable and hematuria stops He remains on ceftriaxone and urine culture is pending No other new complaints Review of systems CONSTITUTIONAL: No fever, no malaise, no fatigue. HEENT: No recent visual problems or hearing problems. Denied any sore throat. CARDIOVASCULAR: No orthopnea, PND, no palpitations, no syncope. PULMONARY: No shortness of breath, no cough, no hemoptysis. GENITOURINARY: Denies any burning micturition, frequency, or urgency. MUSCULOSKELETAL/RHEUMATOLOGICAL: Denies any joint pain, swelling, or any muscle pain. Active Medications Generic Name Dose Route Start Last Admin Trade Name Freq PRN Reason Stop Dose Admin Acetaminophen 650 mg 05/06/24 13:23 Acetaminophen Tab 325 Mg Tab PO Q6HR PRN Mild Pain or Fever > 100.5 Hydrocodone Bitart/Acetaminophen 1 each 05/06/24 22:56 05/07/24 08:34 Hydrocodone/Apap 5-325mg 1 Each Tab PO 1 each Q4HR PRN Administration Pain Alprazolam 0.5 mg 05/06/24 22:56 Alprazolam 0.5 Mg Tab PO BID PRN Anxiety Amlodipine Besylate 10 mg 05/07/24 09:00 05/07/24 08:32 Amlodipine 10 Mg Tab PO Not Given DAILY ROSALINA Apixaban 5 mg 05/07/24 09:00 05/07/24 08:34 Apixaban 5 Mg Tab PO 5 mg BID ROSALINA Administration Protocol Aspirin 81 mg 05/07/24 09:00 05/07/24 08:34 Aspirin 81 Mg PO 81 mg DAILY ROSALINA Administration Atorvastatin Calcium 80 mg 05/07/24 21:00 Atorvastatin 80 Mg Tab PO HS ROSALINA Famotidine 20 mg 05/07/24 09:00 05/07/24 08:34 Famotidine 20 Mg Tab PO 20 mg DAILY ROSALINA Administration Sodium Chloride 1,000 mls @ 75 mls/hr 05/06/24 12:15 05/06/24 12:27 Saline 0.9% IV 75 mls/hr .[id number] ROSALINA Administration Ceftriaxone Sodium 1 gm/ 50 mls @ 100 mls/hr 05/07/24 09:00 05/07/24 08:35 Sodium Chloride IVPB 100 mls/hr Q24HR ROSALINA Administration Protocol Meclizine HCl 25 mg 05/06/24 22:56 Meclizine 25 Mg Tab PO TID PRN Vertigo Naloxone HCl 0.2 mg 05/06/24 13:23 Naloxone 0.4 Mg/Ml 1 Ml Vial IV Q2M PRN Opioid Reversal Objective - Vital Signs Vital signs: Vital Signs Temp 97.8 F 05/07/24 07:35 Pulse 58 L 05/07/24 07:35 Resp 18 05/07/24 08:35 BP 93/50 05/07/24 07:35 Pulse Ox 96 05/07/24 07:35 FiO2 Intake & Output 05/06/24 05/07/24 05/07/24 18:59 06:59 18:59 Intake Total 540 Balance 540 Weight 90.718 kg 90.718 kg Intake: Oral 540 Other: Voiding Method Toilet Toilet # Voids 6 - Exam GENERAL: The patient is alert and oriented x3, not in any acute distress. Well developed, well nourished. HEENT: Pupils are round and equally reacting to light. EOMI. No scleral icterus. No conjunctival pallor. Normocephalic, atraumatic. No pharyngeal erythema. No thyromegaly. CARDIOVASCULAR: S1 and S2 present. No murmurs, rubs, or gallops. PULMONARY: Chest is clear to auscultation, no wheezing , no crackles. -ABDOMEN: Soft, non mild suprapubic tenderness r, nondistended, normoactive bowel sounds. No palpable organomegaly. MUSCULOSKELETAL: No joint swelling or deformity. EXTREMITIES: No cyanosis, clubbing, or pedal edema. NEUROLOGICAL: Gross neurological examination did not reveal any focal deficits. SKIN: No rashes. no petechiae. - Labs CBC & Chem 7: 05/07/24 04:17 05/07/24 04:17 Labs: Abnormal Lab Results - Last 24 Hours (Table) 05/07/24 05/07/24 Range/Units 04:17 04:17 RBC 3.83 L (4.40-5.60) X 10*6/uL Hgb 10.4 L (13.0-17.0) g/dL Hct 32.5 L (39.6-50.0) % MPV 9.2 L (9.5-12.2) FL Monocytes # 1.06 H (0.20-1.00) X 10*3/uL Sodium 132 L (135-145) mmol/L Carbon Dioxide 20.9 L (21.6-31.8) mmol/L Est GFR (CKD-EPI) 52 L (>=60) BUN/Creatinine Ratio 10.43 L (12.00-20.00) Ratio Calcium 8.1 L (8.7-10.3) mg/dL Assessment and Plan Assessment: Hematuria, acute. Suspicious for UTI Mild metabolic encephalopathy. Improving Mild acute kidney injury Hypovolemic hyponatremia, improving Chronic anemia Plan: Continue with ceftriaxone Continue with normal saline 75 mL/h Follow-up urine culture Consult urology service Labs and medication were reviewed.. Continue same treatment. Continue with symptomatic treatment. Resume home medication. Monitor labs and vitals. DVT and GI prophylaxis. Further recommendations as per clinical course of the patient DVT prophylaxis: Subcutaneous heparin GI Prophylaxis: Pepcid PT/OT: Pending Prognosis is guarded
[2024-05-07] MEDS: IOPAMIDOL CONTRAST (ORAL USE) VIAL PO PRN (12:04)
--- NOTE | 2024-05-07 13:36 | P.GSCN ---
History of Present Illness Consult date: 05/07/24 Reason for Consult: Recent surgery, abdominal and groin pain Requesting physician: Perez E Sheet History of present illness: This is a pleasant 73-year-old male known to vascular surgical services with peripheral arterial disease who presented to the emergency department with reported confusion. Patient states that his and daughter said that he was not making sense and they brought him in for further evaluation. He states that he has a kidney infection and he is being treated with antibiotics. He recently underwent right lower extremity stent and right and left common femoral artery thromboendarterectomy with patch angioplasty as well as a femorofemoral bypass with PTFE graft on 04/04/2023 and discharged home on 04/06/2024. Patient also states he is having some overall abdominal discomfort. States he has had some constipation since his surgery. He was having lower pubic pressure. States he does get some pain in his right lower extremity after walking. He is following with Dr. Morataya in the office. Patient is currently drinking contrast to undergo CT of the abdomen. Urology is consulted for suprapubic tenderness. Patient had blood in urine on UA. Urine culture actually came back negative. Review of Systems A 14 point review systems was completed all pertinent positives and negatives as stated in the HPI. Past Medical History Past Medical History: Coronary Artery Disease (CAD), CVA/TIA Additional Past Medical History / Comment(s): Decrease circulation left lower ext. History of Any Multi-Drug Resistant Organisms: None Reported Past Surgical History: Coronary Bypass/CABG, Heart Catheterization, Heart Catheterization With Stent Additional Past Surgical History / Comment(s): right femorl bypass. Date of Last Stent Placement:: 2011 Past Psychological History: No Psychological Hx Reported Smoking Status: Former smoker Past Alcohol Use History: None Reported Past Drug Use History: None Reported Medications and Allergies Home Medications Medication Instructions Recorded Confirmed Type ALPRAZolam [Xanax] 0.5 mg PO BID PRN 04/03/24 05/06/24 History Apixaban [Eliquis] 5 mg PO BID 04/03/24 05/06/24 History Furosemide [Lasix] 20 mg PO Q48H 04/03/24 05/06/24 History Meclizine [Antivert] 25 mg PO TID PRN 04/03/24 05/06/24 History Rosuvastatin Calcium [Crestor] 40 mg PO HS 04/03/24 05/06/24 History Aspirin 81 mg PO DAILY #30 tab 04/06/24 05/06/24 Rx HYDROcodone/APAP 5-325MG [[place] 1 tab PO Q4HR PRN 04/16/24 05/06/24 History 5-325] Losartan [Cozaar] 50 mg PO HS 05/06/24 05/06/24 History amLODIPine [Norvasc] 10 mg PO DAILY 05/06/24 05/06/24 History Allergies Allergy/AdvReac Type Severity Reaction Status Date / Time clindamycin Allergy Rash/Hives Verified 05/06/24 14:15 Surgical - Exam Vital Signs Temp Pulse Resp BP Pulse Ox 97.4 F L 86 18 101/65 99 05/06/24 09:33 05/06/24 09:33 05/06/24 09:33 05/06/24 09:33 05/06/24 09:33 General appearance: The patient is alert, oriented, appears in no acute distr ess. HET: Head is normocephalic and atraumatic. Pupils are equal and reactive. Neck: Supple. Heart: Regular. Lungs: Equal expansion, normal respiratory effort. Abdomen: Soft, nontender, nondistended. Extremities: Normal skin color and turgor. Bilateral lower extremities warm to the touch with good capillary refill. Bilateral groin incisions well-healed. Femorofemoral bypass palpable. Neurological: No focal deficits. Results - Labs 05/07/24 04:17 05/07/24 04:17 Abnormal Lab Results - Last 24 Hours (Table) 05/07/24 05/07/24 Range/Units 04:17 04:17 RBC 3.83 L (4.40-5.60) X 10*6/uL Hgb 10.4 L (13.0-17.0) g/dL Hct 32.5 L (39.6-50.0) % MPV 9.2 L (9.5-12.2) FL Monocytes # 1.06 H (0.20-1.00) X 10*3/uL Sodium 132 L (135-145) mmol/L Carbon Dioxide 20.9 L (21.6-31.8) mmol/L Est GFR (CKD-EPI) 52 L (>=60) BUN/Creatinine Ratio 10.43 L (12.00-20.00) Ratio Calcium 8.1 L (8.7-10.3) mg/dL Microbiology - Last 24 Hours (Table) 05/06/24 10:15 Urine Culture - Final Urine,Clean Catch Diabetes panel 05/07/24 Range/Units 04:17 Sodium 132 L (135-145) mmol/L Potassium 3.8 (3.5-5.5) mmol/L Chloride 100 (96-109) mmol/L Carbon Dioxide 20.9 L (21.6-31.8) mmol/L BUN 14.6 (9.0-27.0) mg/dL Creatinine 1.4 (0.6-1.5) mg/dL Glucose 100 (70-110) mg/dL Calcium 8.1 L (8.7-10.3) mg/dL Calcium panel 05/07/24 Range/Units 04:17 Calcium 8.1 L (8.7-10.3) mg/dL Pituitary panel 05/07/24 Range/Units 04:17 Sodium 132 L (135-145) mmol/L Potassium 3.8 (3.5-5.5) mmol/L Chloride 100 (96-109) mmol/L Carbon Dioxide 20.9 L (21.6-31.8) mmol/L BUN 14.6 (9.0-27.0) mg/dL Creatinine 1.4 (0.6-1.5) mg/dL Glucose 100 (70-110) mg/dL Calcium 8.1 L (8.7-10.3) mg/dL Adrenal panel 05/07/24 Range/Units 04:17 Sodium 132 L (135-145) mmol/L Potassium 3.8 (3.5-5.5) mmol/L Chloride 100 (96-109) mmol/L Carbon Dioxide 20.9 L (21.6-31.8) mmol/L BUN 14.6 (9.0-27.0) mg/dL Creatinine 1.4 (0.6-1.5) mg/dL Glucose 100 (70-110) mg/dL Calcium 8.1 L (8.7-10.3) mg/dL - Imaging Comments: CT without any acute findings Assessment and Plan Assessment: 1. Altered mental status changes, appear resolved 2. Abdominal pain, bypass surgery not likely cause of abdominal pain, Possibly due to constipation secondary to pain medications 3. Peripheral arterial disease status post femoral-femoral bypass and right and left common femoral artery thromboendarterectomy with patch angioplasty 4. Known thrombosed left popliteal artery aneurysm Plan: 1. Continue Eliquis 2. No further workup per vascular surgery. No indication for any vascular surgical intervention. 3. Consider stool softener or laxative to improve bowel regimen Thank you for this consultation, we will sign off at this time. Patient to follow-up with Dr. Morataya in the office. The impression and plan of care has been dictated as directed. I performed a history and examination of this patient, discussed the same with the dictator. I agree with the dictator's note ,documented as a scribe. Any additional findings or plans will be noted.
--- NOTE | 2024-05-07 14:03 | CT ---
EXAMINATION TYPE: CT abdomen pelvis wo con CT DLP: 763.1 mGycm, Automated exposure control for dose reduction was used. DATE OF EXAM: 05/07/2024 1:45 PM COMPARISON: CTA lower right extremity 04/15/2024, CTA thoracoabdominal with runoff 04/03/2024, 023, CT abdomen and pelvis 04/11/2021 CLINICAL INDICATION:Male, 73 years old with history of lower abd pain; LOWER ABDOMINAL PAIN TECHNIQUE: Standard CT of the abdomen and pelvis following the administration of oral contrast. Cor onal and sagittal reformats were performed. FINDINGS: Limited evaluation due to lack of intravenous contrast. LOWER CHEST: Posterior dependent subsegmental atelectasis is noted. Mild cardiomegaly. Epicardial cuate ds identified. ABDOMEN LIVER: Unremarkable noncontrast appearance GALLBLADDER AND BILE DUCTS: Unremarkable noncontrast appearance PANCREAS: Unremarkable noncontrast appearance SPLEEN: Unremarkable noncontrast appearance ADRENAL GLANDS: Unremarkable noncontrast appearance. KIDNEYS AND URETERS: No evidence of hydronephrosis. Nonobstructive right lower pole 6 mm calculus. Ex ophytic right renal lower pole 2.4 cm cyst. Nonspecific bilateral perinephric fat stranding redemonst rated. No definitive ureteral calculus. Regions of cortical thinning involving the right lower pole r edemonstrated related to prior insult. PELVIS BLADDER: Unremarkable REPRODUCTIVE: Coarse calcifications of the prostate gland are identified. Enlarged prostate gland [place] 4.9 cm in transverse dimension. ABDOMEN & PELVIS STOMACH AND BOWEL: Stomach and duodenum are unremarkable. Enteric contrast reaches the distal small b owel. Redundant sigmoid colon. Scattered colonic diverticulosis without evidence for acute diverticul itis. The appendix is not definitively identified however no significant inflammatory changes within the right lower quadrant. No focal bowel wall thickening or surrounding inflammatory changes. No evid ence of bowel obstruction. PERITONEUM: No evidence of pneumoperitoneum or free fluid. VASCULATURE: Moderate atherosclerotic calcifications are present throughout the abdominal aorta and i ts branches. Stable fusiform infrarenal abdominal aortic aneurysm measuring up to 3.7 cm. Redemonstra tion of femoral-femoral bypass. Evaluation is limited due to lack of intravenous contrast. MUSCULOSKELETAL: No acute osseous abnormalities. Multilevel degenerative changes of the visualized sp ine. DISH of the lower thoracic spine. LYMPH NODES: No gross evidence for lymphadenopathy. SOFT TISSUE/ABDOMINAL WALL: Small fat filled umbilical hernia. Stranding changes identified within abby th inguinal regions from femoral-femoral bypass with evidence of fluid collection. Fat-containing jennifer ateral inguinal hernias. IMPRESSION: 1. No CT evidence for acute dialysis for process within limitations of a nonintravenous contrast exa m. 2. Stable infrarenal abdominal aortic aneurysm measuring up to 3.7 cm. 3. Postsurgical changes from femoral-femoral bypass graft. 4. Nonobstructive right renal calculus. 5. Colonic diverticulosis without evidence for acute diverticulitis. [facility], , 05/07/2024 2:00 PM
--- NOTE | 2024-05-07 17:19 | P.GSCN ---
History of Present Illness Consult date: 05/07/24 Reason for Consult: Suprapubic pain, right renal stone History of present illness: This is a 73-year-old male admitted to the hospital with altered mental status. Urology is consulted for suprapubic pain, presentation patient was thought to h ave a urinary tract infection and was subsequently started on antibiotics. He denies any dysuria or gross hematuria. Urine culture did show contaminant. He subsequently underwent a CT abdomen pelvis that showed no acute process within the bladder or the kidney, the only finding was a 6 mm nonobstructing right sided lower pole stone. At this point he denies any voiding difficulties, the pain appears to be more at the bilateral lower quadrant rather than along the suprapubic area. Urinalysis on presentation showed evidence of RBCs Review of Systems - Constitutional Denies fever, Denies weight loss - EENT Ears, nose, mouth and throat: Denies dysphagia - Cardiovascular Denies chest pain, Denies shortness of breath - Respiratory Denies cough, Denies 7 - Gastrointestinal Reports as per HPI, Reports abdominal pain, Denies nausea, Denies vomiting - Genitourinary Denies dysuria, Denies flank pain - Integumentary Denies rash, Denies unusual bruising - Neurological Denies headaches, Denies syncope Past Medical History Past Medical History: Coronary Artery Disease (CAD), CVA/TIA Additional Past Medical History / Comment(s): Decrease circulation left lower ext. History of Any Multi-Drug Resistant Organisms: None Reported Past Surgical History: Coronary Bypass/CABG, Heart Catheterization, Heart Catheterization With Stent Additional Past Surgical History / Comment(s): right femorl bypass. Date of Last Stent Placement:: 2011 Past Psychological History: No Psychological Hx Reported Smoking Status: Former smoker Past Alcohol Use History: None Reported Past Drug Use History: None Reported Medications and Allergies Home Medications Medication Instructions Recorded Confirmed Type ALPRAZolam [Xanax] 0.5 mg PO BID PRN 04/03/24 05/06/24 History Apixaban [Eliquis] 5 mg PO BID 04/03/24 05/06/24 History Furosemide [Lasix] 20 mg PO Q48H 04/03/24 05/06/24 History Meclizine [Antivert] 25 mg PO TID PRN 04/03/24 05/06/24 History Rosuvastatin Calcium [Crestor] 40 mg PO HS 04/03/24 05/06/24 History Aspirin 81 mg PO DAILY #30 tab 04/06/24 05/06/24 Rx HYDROcodone/APAP 5-325MG [[place] 1 tab PO Q4HR PRN 04/16/24 05/06/24 History 5-325] Losartan [Cozaar] 50 mg PO HS 05/06/24 05/06/24 History amLODIPine [Norvasc] 10 mg PO DAILY 05/06/24 05/06/24 History Allergies Allergy/AdvReac Type Severity Reaction Status Date / Time clindamycin Allergy Rash/Hives Verified 05/06/24 14:15 Surgical - Exam Vital Signs Temp Pulse Resp BP Pulse Ox 97.4 F L 86 18 101/65 99 05/06/24 09:33 05/06/24 09:33 05/06/24 09:33 05/06/24 09:33 05/06/24 09:33 - General no distress, no pain - Eyes normal ocular movement, no pale - ENT normal nares, normal mucosa - Respiratory normal expansion, normal respiratory effort - Abdomen Abdomen: soft, non tender, no distended Results - Labs 05/07/24 04:17 05/07/24 04:17 Abnormal Lab Results - Last 24 Hours (Table) 05/07/24 05/07/24 Range/Units 04:17 04:17 RBC 3.83 L (4.40-5.60) X 10*6/uL Hgb 10.4 L (13.0-17.0) g/dL Hct 32.5 L (39.6-50.0) % MPV 9.2 L (9.5-12.2) FL Monocytes # 1.06 H (0.20-1.00) X 10*3/uL Sodium 132 L (135-145) mmol/L Carbon Dioxide 20.9 L (21.6-31.8) mmol/L Est GFR (CKD-EPI) 52 L (>=60) BUN/Creatinine Ratio 10.43 L (12.00-20.00) Ratio Calcium 8.1 L (8.7-10.3) mg/dL Microbiology - Last 24 Hours (Table) 05/06/24 10:15 Urine Culture - Final Urine,Clean Catch Diabetes panel 05/07/24 Range/Units 04:17 Sodium 132 L (135-145) mmol/L Potassium 3.8 (3.5-5.5) mmol/L Chloride 100 (96-109) mmol/L Carbon Dioxide 20.9 L (21.6-31.8) mmol/L BUN 14.6 (9.0-27.0) mg/dL Creatinine 1.4 (0.6-1.5) mg/dL Glucose 100 (70-110) mg/dL Calcium 8.1 L (8.7-10.3) mg/dL Calcium panel 05/07/24 Range/Units 04:17 Calcium 8.1 L (8.7-10.3) mg/dL Pituitary panel 05/07/24 Range/Units 04:17 Sodium 132 L (135-145) mmol/L Potassium 3.8 (3.5-5.5) mmol/L Chloride 100 (96-109) mmol/L Carbon Dioxide 20.9 L (21.6-31.8) mmol/L BUN 14.6 (9.0-27.0) mg/dL Creatinine 1.4 (0.6-1.5) mg/dL Glucose 100 (70-110) mg/dL Calcium 8.1 L (8.7-10.3) mg/dL Adrenal panel 05/07/24 Range/Units 04:17 Sodium 132 L (135-145) mmol/L Potassium 3.8 (3.5-5.5) mmol/L Chloride 100 (96-109) mmol/L Carbon Dioxide 20.9 L (21.6-31.8) mmol/L BUN 14.6 (9.0-27.0) mg/dL Creatinine 1.4 (0.6-1.5) mg/dL Glucose 100 (70-110) mg/dL Calcium 8.1 L (8.7-10.3) mg/dL Assessment and Plan Assessment: 73-year-old male with suprapubic nominal pain, CT showed no abnormality within the kidneys or the bladder, only finding is a nonobstructing 6 mm stone, this would not be the cause of his pain. Given the urinalysis showing red blood cells, I do recommend a repeat UA as an outpatient, if he is having persistent microscopic hematuria then he will require a cystoscopy, but from urology ethan dpoint acutely no further intervention is needed at this time
[2024-05-07] MEDS: ATORVASTATIN 80 MG TAB PO SCH (20:27)
[2024-05-08 09:26] LABS: BUN/Creat Ratio 9.54 Ratio (12.00-20.00); Blood Urea Nitrogen 12.4 mg/dL (9.0-27.0); Carbon Dioxide 20.2 mmol/L (21.6-31.8); Chloride 103 mmol/L (96-109); Glucose 103 mg/dL (70-110); Potassium 3.6 mmol/L (3.5-5.5); Sodium 133 mmol/L (135-145)
[2024-05-08 09:40] LABS: Basophils # (A) 0.03 X 10*3/uL (0.00-0.10); Basophils % (A) 0.3 %; Eosinophils # (A) 0.09 X 10*3/uL (0.04-0.35); Eosinophils % (A) 0.9 %; HCT 34.3 % (39.6-50.0); HGB 10.5 g/dL (13.0-17.0); Lymphocytes # (A) 1.41 X 10*3/uL (0.90-5.00); Lymphocytes % (A) 13.6 %; MCHC 30.6 g/dL (32.0-37.0); MCV 88.2 FL (80.0-97.0); Mean Platelet Volume 9.9 FL (9.5-12.2); Monocytes # (A) 0.89 X 10*3/uL (0.20-1.00); Monocytes % (A) 8.6 %; NRBC Per 100 WBC 0 X 10*3/uL (0.00-0.01); Neutrophils % (A) 76.1 %; Platelet Count 206 X 10*3/uL (140-440); RBC 3.89 X 10*6/uL (4.40-5.60); RDW 14.1 % (11.5-14.5); WBC 10.37 X 10*3/uL (4.50-10.00)
[2024-05-08 10:26] LABS: Appearance,Urine Clear (Clear); Bilirubin,Urine Negative (Negative); Blood,Urine Large (Negative); Color,Urine Light Yellow; Glucose,Urine (UA) Negative (Negative); Ketones,Urine Negative (Negative); Leukocyte Esterase,Urine Negative (Negative); Mucus,Urine Rare /hpf; Nitrite,Urine Negative (Negative); PH, Urine 5.5 (5.0-8.0); Protein,Urine 1+ (Negative); RBC,Urine >182 /hpf (0-5); Specific Gravity,Urine 1.007 (1.001-1.035); Urobilinogen,Urine <2.0 mg/dL (<2.0); WBC,Urine 13 /hpf (0-5)
--- NOTE | 2024-05-08 12:52 | P.PN ---
Subjective Progress Note Date: 05/08/24 73 years old male with past medical history of multiple problems Information obtained. at bedside Patient has vascular surgery with Dr. Antony about 1 month ago. Presents today with lower abdominal pain. Patient reports not urinating good and 90 sweating His pain is about 4-5/10 in severity, comes and goes and he had it since surgery This morning he was little bit more confused than usual for example he was trying to take temperature using the thermometer and her in the roadway and in the room direction however it is mild confusion now looks better her work Also his urine is not burning but started getting dark this Patient also complaining from constipation He denies chest pain dyspnea, no other GI symptoms no headache dizziness weakness numbness Patient denies smoking alcohol or illicit drugs He is afebrile, blood pressure stable WBC 11.1, hemoglobin 11.6, sodium 129, creatinine 1.4 with baseline about 1.0 Urine analysis showing high amount of blood with 6 WBC EKG showing a supraventricular rhythm at 79 with possible right ventricular hypertrophy and anterolateral infarct CT of the brain is negative for acute process Urine culture is sent and is pending 05/07 Patient feels the same. However no more episodes of confusion He still complains of from the same ongoing lower abdominal pain x 1 month, currently 4/10 He states that hematuria started improving and currently pink currently his aspirin and Eliquis are kept on hold. We can resume soon once cleared by urologist or if his hemoglobin remained stable and hematuria stops He remains on ceftriaxone and urine culture is pending No other new complaints 05/08: Patient seen and evaluated at bedside, accompanied by at bedside. Patient mentation has improved does get forgetful alert and oriented x 2. Blood work reviewed hemoglobin 10.5 platelet 206. Serum chemistry sodium 133 creatinine 1.3 repeat urinalysis does show extensive WBC, large amount of blood noted as well however patient denies hematuria EXAM GENERAL: The patient is alert and oriented x3, not in any acute distress. Well developed, well nourished. HEENT: Pupils are round and equally reacting to light. EOMI. CARDIOVASCULAR: S1 and S2 present. No murmurs, rubs, or gallops. PULMONARY: Chest is clear to auscultation, no wheezing , no crackles. -ABDOMEN: Soft, non mild suprapubic tenderness r, nondistended, normoactive bowel sounds. No palpable organomegaly. MUSCULOSKELETAL: No joint swelling or deformity. EXTREMITIES: No cyanosis, clubbing, or pedal edema. NEUROLOGICAL: Gross neurological examination did not reveal any focal deficits. Objective - Vital Signs Vital signs: Vital Signs Temp 97.7 F 05/08/24 07:17 Pulse 67 05/08/24 07:17 Resp 15 05/08/24 07:17 BP 109/84 05/08/24 07:17 Pulse Ox 94 L 05/08/24 07:17 FiO2 Intake & Output 05/07/24 05/08/24 05/08/24 18:59 06:59 18:59 Intake Total 440 Balance 440 Intake: Oral 440 Other: Voiding Method Toilet Toilet # Voids 1 3 - Labs CBC & Chem 7: 05/08/24 02:56 05/08/24 02:56 Labs: Abnormal Lab Results - Last 24 Hours (Table) 05/08/24 Range/Units 02:56 Sodium 133 L (135-145) mmol/L Carbon Dioxide 20.2 L (21.6-31.8) mmol/L Est GFR (CKD-EPI) 57 L (>=60) BUN/Creatinine Ratio 9.54 L (12.00-20.00) Ratio Calcium 8.0 L (8.7-10.3) mg/dL Microbiology - Last 24 Hours (Table) 05/06/24 10:15 Urine Culture - Final Urine,Clean Catch Assessment and Plan Assessment: * urinary tract infection with microscope hematuria * acute metabolic encephalopathy * acute hyponatremia secondary to hypovolemia * acute kidney injury * Chronic anemia * Peripheral arterial disease status post femoral-femoral bypass and right and left common femoral artery thromboendarterectomy with patch angioplastyKnown thrombosed left popliteal artery aneurysm * history of CVA/TIA * infrarenal abdominal aortic aneurysm Plan: Continue with ceftriaxone Day 2 of 5 Follow-up urine culture shows genital demetrio in regards to peripheral arterial disease patient on aspirin, Eliquis, Lipitor to be continued consult obtained from urology, vascular surgery Consult urology service Labs and medication were reviewed. GI Prophylaxis: Pepcid Time with Patient: Greater than 30
[2024-05-09 08:25] VITALS: BP 143/74; PULSE 92; RESP 17; TEMP 98.9
[2024-05-09 09:52] LABS: HGB 10.2 g/dL (13.0-17.0); MCH 27.6 pg (27.0-32.0); MCHC 31.9 g/dL (32.0-37.0); MCV 86.7 FL (80.0-97.0); Mean Platelet Volume 9.5 FL (9.5-12.2); NRBC Per 100 WBC 0 X 10*3/uL (0.00-0.01); Platelet Count 191 X 10*3/uL (140-440); RBC 3.69 X 10*6/uL (4.40-5.60); RDW 14.1 % (11.5-14.5); WBC 8.97 X 10*3/uL (4.50-10.00)
[2024-05-09 10:02] LABS: BUN/Creat Ratio 8.77 Ratio (12.00-20.00); Blood Urea Nitrogen 11.4 mg/dL (9.0-27.0); Calcium 8.1 mg/dL (8.7-10.3); Carbon Dioxide 22.7 mmol/L (21.6-31.8); Chloride 102 mmol/L (96-109); Glucose 93 mg/dL (70-110); Potassium 3.7 mmol/L (3.5-5.5); Sodium 134 mmol/L (135-145)
--- NOTE | 2024-05-09 11:40 | P.DS ---
Providers Date of admission: 05/07/24 11:56 Expected date of discharge: 05/09/24 Attending physician: Perez Cutler MD Consults: 05/07/24 11:02 Consult Physician Routine Consulting Provider: Hitesh Troy Consult Reason/Comments: suprapubic tenderness Do you want consulting provider notified?: Yes 05/07/24 11:49 Consult Physician Routine Consulting Provider: See Navarrete Consult Reason/Comments: recent surgery , abd and groin pain Do you want consulting provider notified?: Yes Primary care physician: [facility] Course: 73 years old male with past medical history of multiple problems Information obtained. at bedside Patient has vascular surgery with Dr. Antony about 1 month ago. Presents today with lower abdominal pain. Patient reports not urinating good and 90 sweating His pain is about 4-5/10 in severity, comes and goes and he had it since surgery This morning he was little bit more confused than usual for example he was trying to take temperature using the thermometer and her in the roadway and in the room direction however it is mild confusion now looks better her work Also his urine is not burning but started getting dark this Patient also complaining from constipation He denies chest pain dyspnea, no other GI symptoms no headache dizziness weakness numbness Patient denies smoking alcohol or illicit drugs He is afebrile, blood pressure stable WBC 11.1, hemoglobin 11.6, sodium 129, creatinine 1.4 with baseline about 1.0 Urine analysis showing high amount of blood with 6 WBC EKG showing a supraventricular rhythm at 79 with possible right ventricular hypertrophy and anterolateral infarct CT of the brain is negative for acute process Urine culture is sent and is pending 05/07 Patient feels the same. However no more episodes of confusion He still complains of from the same ongoing lower abdominal pain x 1 month, currently 4/10 He states that hematuria started improving and currently pink currently his aspirin and Eliquis are kept on hold. We can resume soon once cleared by urologist or if his hemoglobin remained stable and hematuria stops He remains on ceftriaxone and urine culture is pending No other new complaints 05/08: Patient seen and evaluated at bedside, accompanied by at bedside. Patient mentation has improved does get forgetful alert and oriented x 2. Blood work reviewed hemoglobin 10.5 platelet 206. Serum chemistry sodium 133 creatinine 1.3 repeat urinalysis does show extensive WBC, large amount of blood noted as well however patient denies hematuria 05/09 patient seen and evaluated at bedside, patient appears well, plan to discharge home, patient transition from Rocephin to oral Ceftin, hematuria resolved, patient ambulating well will be discharged home on oral antibiotics. Mentation has improved EXAM GENERAL: The patient is alert and oriented x3, not in any acute distress. Well developed, well nourished. HEENT: Pupils are round and equally reacting to light. EOMI. CARDIOVASCULAR: S1 and S2 present. No murmurs, rubs, or gallops. PULMONARY: Chest is clear to auscultation, no wheezing , no crackles. -ABDOMEN: Soft, abdomen soft nontender MUSCULOSKELETAL: No joint swelling or deformity. EXTREMITIES: No cyanosis, clubbing, or pedal edema. NEUROLOGICAL: Gross neurological examination did not reveal any focal deficits. Assessment: Assessment and Plan Assessment: * urinary tract infection with microscope hematuria * acute metabolic encephalopathy * acute hyponatremia secondary to hypovolemia * acute kidney injury * Chronic anemia * Peripheral arterial disease status post femoral-femoral bypass and right and left common femoral artery thromboendarterectomy with patch angioplastyKnown thrombosed left popliteal artery aneurysm * history of CVA/TIA * infrarenal abdominal aortic aneurysm Plan: treated with Rocephin, transition to oral Ceftin for additional 3 days to complete total 5-day course Follow-up urine culture shows genital demetrio in regards to peripheral arterial disease patient on aspirin, Eliquis, Lipitor to be continued consult obtained from urology, vascular surgery Consult urology service, continue outpatient follow-up Labs and medication were reviewed. Patient Condition at Discharge: Fair Plan - Discharge Summary Discharge Rx Participant: Yes New Discharge Prescriptions: New Cephalexin [Keflex] 500 mg PO QID 3 Days #12 cap Continue Apixaban [Eliquis] 5 mg PO BID ALPRAZolam [Xanax] 0.5 mg PO BID PRN PRN Reason: Anxiety Losartan [Cozaar] 50 mg PO HS amLODIPine [Norvasc] 10 mg PO DAILY Furosemide [Lasix] 20 mg PO Q48H Rosuvastatin Calcium [Crestor] 40 mg PO HS Meclizine [Antivert] 25 mg PO TID PRN PRN Reason: Vertigo Aspirin 81 mg PO DAILY #30 tab HYDROcodone/APAP 5-325MG [[place] 5-325] 1 tab PO Q4HR PRN PRN Reason: Pain Discharge Medication List ALPRAZolam [Xanax] 0.5 mg PO BID PRN 04/03/24 [History] Apixaban [Eliquis] 5 mg PO BID 04/03/24 [History] Furosemide [Lasix] 20 mg PO Q48H 04/03/24 [History] Meclizine [Antivert] 25 mg PO TID PRN 04/03/24 [History] Rosuvastatin Calcium [Crestor] 40 mg PO HS 04/03/24 [History] Aspirin 81 mg PO DAILY #30 tab 04/06/24 [Rx] HYDROcodone/APAP 5-325MG [[place] 5-325] 1 tab PO Q4HR PRN 04/16/24 [History] Losartan [Cozaar] 50 mg PO HS 05/06/24 [History] amLODIPine [Norvasc] 10 mg PO DAILY 05/06/24 [History] Cephalexin [Keflex] 500 mg PO QID 3 Days #12 cap 05/09/24 [Rx] Follow up Appointment(s)/Referral(s): Hitesh Troy MD [STAFF PHYSICIAN] - 2 Weeks (Please call Friday to schedule appointment) Martin Flores DO [Primary Care Provider] - 1-2 days (Please call Friday to schedule appointment ) Discharge Disposition: HOME SELF-CARE
[2024-05-09] MEDS ORDERED: CEPHALEXIN 500 MG CAP PO SCH (13:00)
== END 2024-05-09 12:07 | disposition home or self-care (01) | DRG 689 ==
LOC: EC 09:32 → 6NMEDSUR 13:23 → 4SSUR 18:34 → OBSVTOIN 05-07 11:56
PROVIDERS: ADMIT Internal Medicine; ATTEND Internal Medicine
DX: N39.0 Urinary tract infection, site not specified (principal); G93.41 Metabolic encephalopathy; E87.1 Hypo-osmolality and hyponatremia; N17.9 Acute kidney failure, unspecified; E86.1 Hypovolemia; D64.9 Anemia, unspecified; I73.9 Peripheral vascular disease, unspecified; I71.43 Infrarenal abdominal aortic aneurysm, without rupture; I25.10 Atherosclerotic heart disease of native coronary artery without angina pectoris; E86.0 Dehydration; K59.03 Drug induced constipation; T50.995A Adverse effect of other drugs, medicaments and biological substances, initial encounter; I72.4 Aneurysm of artery of lower extremity; N20.0 Calculus of kidney; Z95.2 Presence of prosthetic heart valve; Z86.73 Personal history of transient ischemic attack (TIA), and cerebral infarction without residual deficits; Z95.1 Presence of aortocoronary bypass graft; Z79.82 Long term (current) use of aspirin; Z79.01 Long term (current) use of anticoagulants; Z88.1 Allergy status to other antibiotic agents; Z87.891 Personal history of nicotine dependence
CPT/HCPCS: 36415; 70450; 74176; 80048; 80053; 81001; 83605; 83735; 85025; 85027; 85610; 85730; 87086; 87636; 93005; 96361; 96374; 96375; 99285

== ENCOUNTER → 2024-05-20 | Outpatient (CLI) | payer MEDICARE, BC ==
[2024-05-20 13:46] LABS: African American GFR (CKD) 43 (>60 ml/min/1.73 sqM); Blood Urea Nitrogen 34 mg/dL (9-20); Non-African American GFR(CKD) 37 (>60 ml/min/1.73 sqM)
--- NOTE | 2024-05-20 17:34 | CT ---
EXAMINATION TYPE: CT angio abd aorta w/Runoff CT DLP: 2462.0 mGycm, Automated exposure control for dose reduction was used. DATE OF EXAM: 05/20/2024 3:25 PM COMPARISON: CT abdomen and pelvis 05/07/2024, CTA lower extremity right 04/15/2024, CTA thoracoabdomi nal with runoff 04/03/2024, CT abdomen aorta with runoff 03/07/2023. CLINICAL INDICATION:Male, 73 years old with history of I70.213 ATHSCL [place] ARTERIES OF EXTRM; Ather osclerosis [place] arteries of extremities. TECHNIQUE: Multiple thin slice sub-millimeter images were obtained through the abdomen, pelvis, and l ower extremities before and after administration of contrast. Patient was given Isovue 370, 80 cc in travenously. 3-D reconstructed images and maximum intensity projection images were obtained of the a bdomen, pelvis, and lower extremities. FINDINGS: CTA Abdomen and pelvis: Moderate atherosclerotic calcifications are present throughout the abdominal aorta and its branches. Stable fusiform infrarenal abdominal aortic aneurysm measuring up to 3.6 cm, previously 3.7 cm. No evidence for intramural hematoma or dissection. The origins of the superior mes enteric artery, renal arteries, inferior mesenteric artery, and celiac axis are patent. Mild stenosis of the origin of the SMA secondary to calcified plaque. Moderate stenosis at the impression origins of the bilateral main renal arteries secondary to calcified plaque. There is focal loss of enhancemen t identified within the segmental branch of the right renal artery (series 5, image 102). Accessory r enal artery supplying the bilateral inferior poles appears grossly patent. The main splenic artery is patent. Moderate stenosis at the origin of the SANA secondary to calcified noncalcified plaque. Ather osclerotic plaquing with some mural thrombus formation is identified in the common iliac arteries. Th ere appears to be a stent at the origin of the right common iliac artery which is patent. Redemonstra tion of short segment occlusion at the origin of the left common iliac artery with distal reconstitut ion before the bifurcation. Moderate stenosis of the bilateral common iliac arteries. Approximately 6 0% stenosis of the external iliac arteries secondary to mixed calcified plaque again. CTA Lower extremities: Postsurgical changes from femoral to femoral bypass graft redemonstrated. This is patent. Right: The common femoral artery is widely patent. There is short segment occlusion of the deep femor al artery just after its origin with distal reconstitution of the deep femoral artery. There is short segment occlusion of the superficial femoral artery just after the bypass with distal reconstitution . Moderate multilevel stenosis from calcified plaque involving the distal superficial femoral artery. The popliteal artery is patent with mild multilevel stenosis secondary to calcified plaque. There is three-vessel at the level of the right upper calf. The anterior tibial artery is patent along its co urse and crosses the ankle joint. The peroneal artery appears to occlude just after its origin. The p osterior tibial artery occludes just after its origin with scattered regions of distal reconstitution and does appear to cross the ankle joint. Left: Moderate multilevel stenosis of the common femoral artery with high-grade stenosis distally. Hi gh-grade stenosis involving the superficial and deep femoral femoral arteries after the origin. Moder ate multilevel stenosis of the distal superficial femoral artery secondary to calcified plaque. Redem onstration of thrombosed 2.2 cm left popliteal artery aneurysm with distal reconstitution of the dimi nutive popliteal artery. Diminutive caliber of the tibioperoneal trunk. 3 vessel. Diminutive but toro nt appearing posterior tibial, anterior tibial, and peroneal arteries crossing the ankle joint. VISCERA: The liver, spleen, adrenal glands, kidneys, pancreas, and gallbladder are not optimally enha nced due the arterial phase utilized. LIVER: Unremarkable GALLBLADDER AND BILE DUCTS: Unremarkable. PANCREAS: Unremarkable. SPLEEN: New wedge-shaped region of low attenuation within the spleen (series 5, image 43). ADRENAL GLANDS: Unremarkable. KIDNEYS AND URETERS: No evidence of hydronephrosis. Right lower pole nonobstructive 5 mm calculus. No nobstructive left renal calculi measuring up to 3 mm. Exophytic right renal lower pole cyst measuring to 2.4 cm. Similar nonspecific bilateral perinephric fat stranding. Regions of cortical thinning inv olving the right lower pole redemonstrated related to prior insult. Stable left renal cysts. New sana on of low attenuation identified within the right mid to lower kidney. PELVIS BLADDER: Unremarkable REPRODUCTIVE: Prostate is enlarged in size measuring 5.2 cm in transverse dimension. Coarse calcifica tions in the prostate gland are identified. ABDOMEN & PELVIS STOMACH AND BOWEL: Stomach and duodenum are unremarkable. The appendix is within normal limits. Moder ate amount of stool is present within the right colon. Redundant sigmoid colon. No focal bowel wall t hickening or surrounding inflammatory changes. No pneumatosis. No evidence of bowel obstruction. PERITONEUM: No evidence of pneumoperitoneum or free fluid. MUSCULOSKELETAL: No acute osseous abnormalities. Multilevel degenerative disc disease and facet arthr opathy. Degenerative changes of the bilateral SI joints. LYMPH NODES: No evidence for lymphadenopathy. SOFT TISSUE/ABDOMINAL WALL: Tiny fat filled umbilical hernia. Fat-containing bilateral inguinal herni as. Scarring identified within both inguinal regions from vascular intervention. LOWER CHEST: Cardiomegaly. No pericardial effusion. Epicardial leads identified. Partial visualizatio n of postsurgical changes of aortic valve. Median sternotomy wires. Bilateral lower lobe dependent delacruz bsegmental atelectasis and/or scarring. IMPRESSION: 1. Postsurgical changes from femorofemoral bypass which is patent. No surrounding hematoma. 2. New short segment occlusions of the right superficial and deep femoral arteries just after their origins with distal reconstitution. 3. New regions of hypoattenuation within the spleen and right kidney concerning for infarcts. Focal region of nonenhancement identified within a subsegmental branch of the right renal artery likely rep resenting occlusion. 4. Similar short segment complete occlusion of thrombosed left popliteal artery aneurysm measuring u p to 2.2 cm. Distal left tibial artery reconstitutes prior to the origin of the left tibial peroneal trunk again. 5. Similar short segment complete occlusion of the proximal left common iliac artery with reconstitu tion prior to the bifurcation of the internal/external iliac arteries. 6. The right peroneal and posterior tibial arteries appear to occlude after the origins. Scattered r egions of distal reconstitution of the right posterior tibial artery. 7. Stable fusiform infrarenal abdominal aortic aneurysm measuring up to 3.7 cm. No evidence for intr amural hematoma or dissection. 8. Moderate atherosclerotic calcification of the aorta and its branches. [facility], , 05/20/2024 5:31 PM
== END | disposition home or self-care (01) ==
LOC: RADCTMAIN 12:55
PROVIDERS: ATTEND Surgery
DX: I70.213 Atherosclerosis of native arteries of extremities with intermittent claudication, bilateral legs (principal); I72.4 Aneurysm of artery of lower extremity; I71.43 Infrarenal abdominal aortic aneurysm, without rupture; I70.0 Atherosclerosis of aorta; Z98.890 Other specified postprocedural states
CPT/HCPCS: 82565; 84520; 75635; 36415; Q9967

== ENCOUNTER 2024-05-22 03:17 | Inpatient (IN) | payer MEDICARE, BC ==
--- NOTE | 2024-05-22 03:32 | ED ---
Chest Pain HPI - General Chief Complaint: Chest Pain Stated Complaint: Chest Pain Time Seen by Provider: 05/22/24 03:19 Source: patient, EMS Mode of arrival: EMS Limitations: no limitations - History of Present Illness Initial Comments: This patient is a 73-year-old man who presents for evaluation for upper chest pain and feeling like he was going to pass out. The patient states that the pain started about 3 days ago. He indicates the upper chest all across bilaterally. The patient states that tonight the pain became worse and he felt like he was going to pass out. He was feeling short of breath and sweaty. No vomiting. MD Complaint: chest pain Onset/Timin -: days(s) Onset: during rest Pain Location: left chest, right chest Pain Radiation: none Severity: moderate Quality: aching Consistency: constant Improves With: nothing - Related Data Home Medications Medication Instructions Recorded Confirmed ALPRAZolam [Xanax] 0.5 mg PO BID PRN 04/03/24 05/22/24 Apixaban [Eliquis] 5 mg PO BID 04/03/24 05/22/24 Rosuvastatin Calcium [Crestor] 40 mg PO HS 04/03/24 05/22/24 amLODIPine [Norvasc] 10 mg PO DAILY 05/06/24 05/22/24 Docusate [Colace] 100 mg PO HS 05/22/24 05/22/24 Ferrous Sulfate [Iron (65 MG 325 mg PO DAILY 05/22/24 05/22/24 Elemental)] HYDROcodone/APAP 10-325MG [[place] 1 tab PO TID PRN 05/22/24 05/22/24 10-325] Previous Rx's Medication Instructions Recorded Aspirin 81 mg PO DAILY #30 tab 04/06/24 Atorvastatin [Lipitor] 80 mg PO HS tab 05/25/24 Clopidogrel [Plavix] 75 mg PO DAILY tab 05/25/24 Allergies Allergy/AdvReac Type Severity Reaction Status Date / Time clindamycin Allergy Rash/Hives Verified 05/22/24 08:58 Review of Systems ROS Statement: Those systems with pertinent positive or pertinent negative responses have been documented in the HPI. ROS Other: All systems not noted in ROS Statement are negative. Constitutional: Denies: fever, chills, weakness Respiratory: Reports: dyspnea. Denies: cough, wheezes Cardiovascular: Reports: chest pain, orthopnea. Denies: palpitations, edema, s yncope Gastrointestinal: Denies: abdominal pain, nausea, vomiting, diarrhea, melena, hematochezia Genitourinary: Denies: dysuria, hematuria Musculoskeletal: Denies: back pain Skin: Denies: rash Neurological: Denies: headache, weakness, numbness Psychiatric: Reports: anxiety. Denies: depression EKG Findings - EKG Results: EKG: interpreted by ERMD, sinus rhythm (66 bpm) - Blocks, [place], Hypertrophy, ST Abn: AV and intraventricular conduction: 1 AV block - OK, Pacemaker, Normal: Myocardial infarction: anterior OK (old age or indeterminate), lateral OK (old age or indeterminate) Past Medical History Past Medical History: Coronary Artery Disease (CAD), CVA/TIA Additional Past Medical History / Comment(s): Decrease circulation left lower ext. History of Any Multi-Drug Resistant Organisms: None Reported Past Surgical History: Coronary Bypass/CABG, Heart Catheterization, Heart Catheterization With Stent Additional Past Surgical History / Comment(s): right femorl bypass. Date of Last Stent Placement:: 2011 Past Psychological History: No Psychological Hx Reported Smoking Status: Former smoker Past Alcohol Use History: None Reported Past Drug Use History: None Reported General Exam Limitations: no limitations General appearance: alert, in no apparent distress Head exam: Present: atraumatic, normocephalic Eye exam: Present: normal appearance. Absent: scleral icterus, conjunctival injection ENT exam: Present: mucous membranes dry Neck exam: Present: normal inspection, full ROM Respiratory exam: Present: normal lung sounds bilaterally. Absent: respiratory distress, wheezes, rales, rhonchi, stridor, accessory muscle use Cardiovascular Exam: Present: regular rate, normal rhythm, systolic murmur. Absent: diastolic murmur, rubs, gallop GI/Abdominal exam: Present: soft. Absent: distended, tenderness, guarding, rebound, rigid, mass Extremities exam: Present: normal inspection, normal capillary refill. Absent: pedal edema, calf tenderness Back exam: Present: normal inspection. Absent: CVA tenderness (R), CVA tenderness (L) Neurological exam: Present: alert Skin exam: Present: warm, dry, intact, normal color. Absent: rash Course Vital Signs 05/22/24 05/22/24 05/22/24 03:18 03:26 03:38 Temperature 98.5 F Pulse Rate 78 70 Pulse Rate [ 60 [employer] ] Respiratory 24 24 Rate Blood Pressure 78/52 77/54 O2 Sat by Pulse 92 L 93 L Oximetry 05/22/24 05/22/24 05/22/24 04:26 04:27 06:26 Temperature Pulse Rate 64 Pulse Rate [ [employer] ] Respiratory 24 Rate Blood Pressure 75/53 O2 Sat by Pulse 85 L 95 95 Oximetry 05/22/24 05/22/24 05/22/24 07:36 08:00 08:24 Temperature Pulse Rate 66 56 L 72 Pulse Rate [ [employer] ] Respiratory 18 20 18 Rate Blood Pressure 120/68 76/47 102/57 O2 Sat by Pulse 100 100 100 Oximetry 05/22/24 05/22/24 05/22/24 11:00 11:02 12:00 Temperature Pulse Rate 92 91 Pulse Rate [ [employer] ] Respiratory 18 18 Rate Blood Pressure 100/69 106/74 O2 Sat by Pulse 96 95 99 Oximetry 05/22/24 05/22/24 05/22/24 13:54 14:06 14:53 Temperature 98.2 F Pulse Rate 93 97 96 Pulse Rate [ [employer] ] Respiratory 20 22 22 Rate Blood Pressure 123/76 122/67 114/72 O2 Sat by Pulse 97 98 96 Oximetry 05/22/24 05/22/24 05/22/24 15:15 15:36 15:48 Temperature Pulse Rate 88 85 82 Pulse Rate [ [employer] ] Respiratory 22 22 20 Rate Blood Pressure 95/60 87/44 107/66 O2 Sat by Pulse 97 98 99 Oximetry 05/22/24 05/22/24 05/22/24 17:00 18:00 18:43 Temperature 98.7 F Pulse Rate 92 78 83 Pulse Rate [ [employer] ] Respiratory 18 18 18 Rate Blood Pressure 115/68 97/47 O2 Sat by Pulse 99 100 98 Oximetry 05/22/24 05/22/24 05/22/24 19:30 20:00 21:27 Temperature Pulse Rate 87 87 106 H Pulse Rate [ [employer] ] Respiratory 18 18 28 H Rate Blood Pressure 104/65 117/72 128/86 O2 Sat by Pulse 98 96 97 Oximetry 05/22/24 05/22/24 05/22/24 22:00 22:30 23:00 Temperature Pulse Rate 87 92 76 Pulse Rate [ [employer] ] Respiratory 22 22 22 Rate Blood Pressure 119/78 122/90 125/81 O2 Sat by Pulse 98 98 97 Oximetry 05/23/24 05/23/24 05/23/24 00:00 01:00 02:00 Temperature Pulse Rate 97 86 90 Pulse Rate [ [employer] ] Respiratory 22 20 18 Rate Blood Pressure 114/68 106/82 120/69 O2 Sat by Pulse 98 98 99 Oximetry 05/23/24 05/23/24 05/23/24 03:00 04:00 05:00 Temperature 98.9 F Pulse Rate 90 89 84 Pulse Rate [ [employer] ] Respiratory 18 18 18 Rate Blood Pressure 112/66 128/68 113/66 O2 Sat by Pulse 99 99 99 Oximetry 05/23/24 05/23/24 05/23/24 06:00 07:45 09:00 Temperature Pulse Rate 86 96 80 Pulse Rate [ [employer] ] Respiratory 18 24 20 Rate Blood Pressure 107/67 98/77 102/63 O2 Sat by Pulse 98 95 98 Oximetry 05/23/24 05/23/24 05/23/24 12:00 13:00 14:00 Temperature Pulse Rate 68 79 73 Pulse Rate [ [employer] ] Respiratory 20 20 22 Rate Blood Pressure 83/53 92/63 95/65 O2 Sat by Pulse 93 L 92 L 94 L Oximetry 05/23/24 05/23/24 05/23/24 15:30 18:00 19:00 Temperature Pulse Rate 68 81 80 Pulse Rate [ [employer] ] Respiratory 20 20 28 H Rate Blood Pressure 87/57 84/55 87/62 O2 Sat by Pulse 96 94 L 92 L Oximetry - Reevaluation(s) Reevaluation #1: 05/22/24 06:23 Patient discussed with cardiology on-call. They request if patient still hypotensive at end of second bolus to start on pressor or support. They antic ipate taking patient for cath after blood pressure stabilized. Chest Pain MDM - MDM The patient had chest x-ray that I interpreted as showing evidence of mild congestive heart failure. No acute infiltrate or pneumothorax. Was pt. sent in by a medical professional or institution (, PA, CRAB BACKER, urgent care, hospital, or correction...) When possible be specific @ -[No] Did you speak to anyone other than the patient for history (EMS, parent, family, police, friend...)? What history was obtained from this source @ -[No] Did you review nursing and triage notes (agree or disagree)? Why? @ -[I reviewed and agree with nursing and triage notes] Were old charts reviewed (outside hosp., previous admission, EMS record, old EKG, old radiological studies, urgent care reports/EKG's, correction records)? Report findings @ -[No old charts were reviewed] Differential Diagnosis (chest pain, altered mental status, abdominal pain women, abdominal pain men, vaginal bleeding, weakness, fever, dyspnea, syncope, headache, dizziness, GI bleed, back pain, seizure, CVA, palpatations, mental health, musculoskeletal)? @ -[Differential Chest Pain: Stable Angina, Unstable Angina, STEMI, NSTEMI Aortic Dissection, Pneumothorax, Musculoskeletal, Esophageal Spasm GERD, Cholecystitis, Pancreatitis, Zoster, this is not meant to be an all-inclusive list. EKG interpreted by me (3pts min.). @ -[I interpreted as above] X-rays interpreted by me (1pt min.). @ -[I interpreted as above CT interpreted by me (1pt min.). @ -[None done] U/S interpreted by me (1pt. min.). @ -[None done] What testing was considered but not performed or refused? (CT, X-rays, U/S, labs)? Why? @ -[None] What meds were considered but not given or refused? Why? @ -[None] Did you discuss the management of the patient with other professionals (professionals i.e. , PA, CRAB BACKER, lab, RT, psych nurse, mental health social worker, agricultural equipment design engineer, teacher, seismology technical officer, case coordinator)? Give summary @ -[Case discussed with the on-call channeler runner and also with the admitting physician and treatment recommendations are incorporated. Was smoking cessation discussed for >3mins.? @ -[No] Was critical care preformed (if so, how long)? @ -[Yes, 35 minutes Were there social determinants of health that impacted care today? How? (Homelessness, low income, unemployed, alcoholism, drug addiction, transportation, low edu. Level, literacy, decrease access to med. care, group home, rehab)? @ -[No] Was there de-escalation of care discussed even if they declined (Discuss DNR or withdrawal of care, Hospice)? DNR status @ -[No] What co-morbidities impacted this encounter? (DM, HTN, Smoking, COPD, CAD, Cancer, CVA, ARF, Chemo, Hep., AIDS, mental health diagnosis, sleep apnea, morbid obesity)? @ -[None] Was patient admitted / discharged? Hospital course, mention meds given and route, prescriptions, significant lab abnormalities, going to OR and other pertinent info. @ -[Patient is 73-year-old man who is admitted with suspected OK that probably occurred when his symptoms started. The patient does also manifest some mild congestive heart failure. The patient is started on heparin. Patient will be admitted to have further cardiology evaluation and treatment. Additionally patient has some acute kidney injury. Undiagnosed new problem with uncertain prognosis? @ -[No] Drug Therapy requiring intensive monitoring for toxicity (Heparin, Nitro, Insulin, Cardizem)? @ -[IV heparin, Levophed Were any procedures done? @ -[No] Diagnosis/symptom? @ -[NSTEMI Acute kidney injury Acute congestive heart failure Mild hyponatremia Acute hypotension Acute, or Chronic, or Acute on Chronic? @ -[Acute Uncomplicated (without systemic symptoms) or Complicated (systemic symptoms)? @ -[Mild congestive heart failure Side effects of treatment? @ -[No] Exacerbation, Progression, or Severe Exacerbation? @ -[No] Poses a threat to life or bodily function? How? (Chest pain, [place], OK, pneumonia, PE, COPD, DKA, ARF, appy, cholecystitis, CVA, Diverticulitis, Homicidal, Suicidal, threat to staff... and all critical care pts) @ -[Yes, requires further cardiology evaluation and treatment All treatments are based on ideal body weight as in ED triage Disposition Clinical Impression: Acute non-ST elevation myocardial infarction (NSTEMI), Hyponatremia, Acute kidney injury, Hypotension Disposition: ADMITTED IP TO THIS HOSP Condition: Serious Is patient prescribed a controlled substance at d/c from ED?: No
[2024-05-22] MEDS: ASPIRIN 81 MG PO STA (03:33)
[2024-05-22] MEDS: SODIUM CHLORIDE 0.9% 500 ML 500 ML IV STA ×3 (03:34→05:25)
[2024-05-22 03:41] LABS: Basophils % (A) 0 %; Eosinophils # (A) 0.1 k/uL (0-0.7); Eosinophils % (A) 1 %; HCT 32.3 % (39.0-53.0); HGB 10.5 gm/dL (13.0-17.5); Lymphocytes # (A) 1.2 k/uL (1.0-4.8); Lymphocytes % (A) 8 %; MCH 27.7 pg (25.0-35.0); MCHC 32.4 g/dL (31.0-37.0); MCV 85.4 fL (80.0-100.0); Mean Platelet Volume 6.9; Monocytes # (A) 0.6 k/uL (0-1.0); Monocytes % (A) 4 %; Neutrophils # (A) 13.3 k/uL (1.3-7.7); Neutrophils % (A) 87 %; Platelet Count 167 k/uL (150-450); RBC 3.78 m/uL (4.30-5.90); RDW 14.6 % (11.5-15.5); WBC 15.4 k/uL (3.8-10.6)
[2024-05-22 03:53] LABS: INR 1.1 (<1.2); Partial Thromboplastin Time 29.2 sec (22.0-30.0); Prothrombin Time 12.2 sec (10.0-12.5)
[2024-05-22 04:11] LABS: ALT 35 U/L (4-49); AST 128 U/L (17-59); African American GFR (CKD) 33 (>60 ml/min/1.73 sqM); Albumin 2.5 g/dL (3.5-5.0); Alkaline Phosphatase 56 U/L (38-126); Anion Gap 3 mmol/L; Blood Urea Nitrogen 36 mg/dL (9-20); Calcium 7.9 mg/dL (8.4-10.2); Carbon Dioxide 23 mmol/L (22-30); Chloride 103 mmol/L (98-107); Glucose 119 mg/dL (74-99); Magnesium 1.9 mg/dL (1.6-2.3); Non-African American GFR(CKD) 28 (>60 ml/min/1.73 sqM); Sodium 129 mmol/L (137-145); Total Protein 5.6 g/dL (6.3-8.2)
--- NOTE | 2024-05-22 04:33 | XR ---
EXAM: XR Chest, 1 View CLINICAL HISTORY: ITS.REASON XR Reason: chest pain TECHNIQUE: Frontal view of the chest. COMPARISON: No relevant prior studies available. FINDINGS: Lungs: No consolidation or mass. Mild vascular congestion Pleural space: No acute findings. Heart: cardiomegaly. Bones/joints: No acute findings. IMPRESSION: Mild vascular congestion
[2024-05-22] MEDS ORDERED: NITROGLYCERIN SL TABS 0.4 MG TAB SUBLINGUAL PRN (05:36)
[2024-05-22] MEDS: MORPHINE SULFATE 4 MG/ML SYRINGE IV STA (06:39)
[2024-05-22] MEDS: NOREPINEPHRINE 4 MG in SODIUM CHLORIDE 0.9% 250 ML IV ONE (07:05)
[2024-05-22] MEDS: HEPARIN SOD,PORK IN 0.45% NACL 25,000 UNIT in 0.45% NACL 1 250ML.BAG IV SCH (07:07)
[2024-05-22] MEDS: HEPARIN SODIUM 1,000 UN/ML (10ML VL) IV ONE (07:15)
--- NOTE | 2024-05-22 09:42 | P.HPIM ---
History of Present Illness H&P Date: 05/22/24 History of present illness; patient is a 73-year-old gentleman with past medical history significant for peripheral artery disease, CVA who presented the ER because of chest pain. Patient was admitted to the hospital in the beginning of the April at which time patient was found to have UTI and altered mental status secondary to UTI. Patient stated he was all right 3 days back when he started noticing chest pain. Chest pain was located all across the chest, states it starts in the back and goes to the front, intermittent, pressure-like, no aggravating or relieving factor associated chest pain. Patient stated that over the last 3 days chest pain has become more constant and severe and it feels like he is going to pass out. Chest pain was associate with shortness of breath and patient was diaphoretic. There was no complaint of orthopnea or PND. There is no complaint of swelling of feet. Because of chest pain, patient was brought to the ER Initial lab work done in the ER showed WBC 15.4, hemoglobin 10.5, platelet count 167, sodium 139, potassium 4, BUN 36, creatinine 2.21, glucose 119, troponin 29 albumin 2.5 EKG done in the ER showed heart rate of 66, no ST segment elevation, Q waves present in V3 V4 V5 V6 , no T-wave inversions seen. Chest x-ray done in the ER mild vascular congestion Patient admitted to internal medicine service REVIEW OF SYSTEMS: CONSTITUTIONAL: No fever, no malaise, no fatigue. HEENT: No recent visual problems or hearing problems. Denied any sore throat. CARDIOVASCULAR: As mentioned above PULMONARY: As mentioned above GASTROINTESTINAL: No diarrhea, no nausea, no vomiting, no abdominal pain. NEUROLOGICAL: No headaches, no weakness, no numbness. HEMATOLOGICAL: Denies any bleeding or petechiae. GENITOURINARY: Denies any burning micturition, frequency, or urgency. MUSCULOSKELETAL/RHEUMATOLOGICAL: Denies any joint pain, swelling, or any muscle pain. ENDOCRINE: Denies any polyuria or polydipsia. The rest of the 14-point review of systems is negative. PHYSICAL EXAMINATION: GENERAL: The patient is alert and oriented x3, anxious HEENT: Pupils are round and equally reacting to light. EOMI. No scleral icterus. No conjunctival pallor. Normocephalic, atraumatic. No pharyngeal erythema. No thyromegaly. CARDIOVASCULAR: S1 and S2 present. No murmurs, rubs, or gallops. PULMONARY: Tachypneic, coarse breath sounds, no wheezing or crackles. ABDOMEN: Soft, nontender, nondistended, normoactive bowel sounds. No palpable organomegaly. MUSCULOSKELETAL: No joint swelling or deformity. EXTREMITIES: No cyanosis, clubbing, or pedal edema. NEUROLOGICAL: Gross neurological examination did not reveal any focal deficits. SKIN: No rashes. Assessment and plan NSTEMI Cardiogenic shock Acute hypoxemic respiratory failure Acute kidney injury Peripheral arterial disease status post femoral-femoral bypass and right and left common femoral artery thromboendarterectomy with patch angioplasty Known thrombosed left popliteal artery aneurysm Monitor vital signs Monitor CBC Monitor CMP Continue telemetry monitoring Trend troponin I's and O's, daily weights Avoid nephrotoxic agents Start pharmacy with heparin Start Levophed Ordered 2D echo Ordered ultrasound of kidneys Ordered aspirin, Lipitor, Plavix Cardiology consulted Nephrology consulted Pulmonology consulted Labs and medication were reviewed.. Continue same treatment. Continue with symptomatic treatment. Resume home medication. Monitor labs and vitals. DVT and GI prophylaxis. Further recommendations as per clinical course of the patient Dictation was produced using [employer] dictation software. please excuse any grammatical, word or spelling errors. Past Medical History Past Medical History: Coronary Artery Disease (CAD), CVA/TIA Additional Past Medical History / Comment(s): Decrease circulation left lower ext. History of Any Multi-Drug Resistant Organisms: None Reported Past Surgical History: Coronary Bypass/CABG, Heart Catheterization, Heart Catheterization With Stent Additional Past Surgical History / Comment(s): right femorl bypass. Date of Last Stent Placement:: 2011 Past Psychological History: No Psychological Hx Reported Smoking Status: Former smoker Past Alcohol Use History: None Reported Past Drug Use History: None Reported Medications and Allergies Home Medications Medication Instructions Recorded Confirmed Type ALPRAZolam [Xanax] 0.5 mg PO BID PRN 04/03/24 05/22/24 History Apixaban [Eliquis] 5 mg PO BID 04/03/24 05/22/24 History Rosuvastatin Calcium [Crestor] 40 mg PO HS 04/03/24 05/22/24 History Aspirin 81 mg PO DAILY #30 tab 04/06/24 05/22/24 Rx Losartan [Cozaar] 50 mg PO HS 05/06/24 05/22/24 History amLODIPine [Norvasc] 10 mg PO DAILY 05/06/24 05/22/24 History Docusate [Colace] 100 mg PO HS 05/22/24 05/22/24 History Ferrous Sulfate [Feosol] 325 mg PO DAILY 05/22/24 05/22/24 History HYDROcodone/APAP 10-325MG [[place] 1 tab PO TID PRN 05/22/24 05/22/24 History 10-325] Levofloxacin [Levaquin] 500 mg PO DAILY 05/22/24 05/22/24 History Allergies Allergy/AdvReac Type Severity Reaction Status Date / Time clindamycin Allergy Rash/Hives Verified 05/22/24 08:58 Physical Exam Vitals: Vital Signs Temp Pulse Pulse Resp BP Pulse Ox 05/22/24 08:24 72 18 102/57 100 05/22/24 08:00 56 L 20 76/47 100 05/22/24 07:36 66 18 120/68 100 05/22/24 06:26 95 05/22/24 04:27 64 24 75/53 95 05/22/24 04:26 85 L 05/22/24 03:38 60 05/22/24 03:26 70 24 77/54 93 L 05/22/24 03:18 98.5 F 78 24 78/52 92 L Intake and Output 05/21/24 05/22/24 05/22/24 22:59 06:59 14:59 Intake Total 10.196 Balance 10.196 Intake: Intake, IV Titration 10.196 Amount Norepinephrine 4 mg In 10.196 Sodium Chloride 0.9% 250 ml @ 0.03 MCG/KG/MIN 10. 369 mls/hr IV .Q24H ONE Rx#:[id number] Other: Weight 90.718 kg Results CBC & Chem 7: 05/22/24 03:28 05/22/24 03:28 Labs: Abnormal Lab Results - Last 24 Hours (Table) 05/22/24 05/22/24 05/22/24 Range/Units 03:28 03:28 03:28 WBC 15.4 H (3.8-10.6) k/uL RBC 3.78 L (4.30-5.90) m/uL Hgb 10.5 L (13.0-17.5) gm/dL Hct 32.3 L (39.0-53.0) % Neutrophils # 13.3 H (1.3-7.7) k/uL Sodium 129 L (137-145) mmol/L BUN 36 H (9-20) mg/dL Creatinine 2.21 H (0.66-1.25) mg/dL Glucose 119 H (74-99) mg/dL Calcium 7.9 L (8.4-10.2) mg/dL AST 128 H (17-59) U/L Troponin I 29.000 H* (0.000-0.034) ng/mL Total Protein 5.6 L (6.3-8.2) g/dL Albumin 2.5 L (3.5-5.0) g/dL 05/22/24 Range/Units 07:05 WBC (3.8-10.6) k/uL RBC (4.30-5.90) m/uL Hgb (13.0-17.5) gm/dL Hct (39.0-53.0) % Neutrophils # (1.3-7.7) k/uL Sodium (137-145) mmol/L BUN (9-20) mg/dL Creatinine (0.66-1.25) mg/dL Glucose (74-99) mg/dL Calcium (8.4-10.2) mg/dL AST (17-59) U/L Troponin I 28.500 H* (0.000-0.034) ng/mL Total Protein (6.3-8.2) g/dL Albumin (3.5-5.0) g/dL
--- NOTE | 2024-05-22 11:53 | P.CRDCN ---
History of Present Illness History of present illness: HISTORY OF PRESENT ILLNESS: This is a 73-year-old male with a past medical history significant for coronary artery disease with previous CABG, peripheral vascular disease, aortic stenosis with previous aortic valve replacement, ischemic cardiomyopathy, and atrial fibrillation. Patient follows with a flour broker out of [facility]. We have been asked to see the patient in consultation for non-STEMI. Patient examined at the bedside in the emergency room. Patient presented to the hospital with a chief complaint of chest pain. Patient states a few days ago he began to have chest discomfort in the middle of his chest. He also reports having some shortness of breath. No nausea or vomiting. He denied any radiation of the pain. Patient was found to have elevated troponins of 29 and was started on IV heparin. Patient is also found to be hypotensive and was started on Levophed. Additionally he is hypoxic and is currently on a nonrebreather. DIAGNOSTICS: - EKG reveals sinus mechanism with nonspecific ST-T wave changes. Q waves V3V6. repeat EKG reveals sinus mechanism with T wave inversions inferiorly - Chest xray mild vascular congestion - Laboratory data: WBC 15.4. Hemoglobin 10.5. Platelet count 167. Sodium 129. Potassium 4.0. BUN 36. Creatinine 2.21. proBNP 24,400. Troponin 29.0. 28.5. - Current home cardiac medications include Eliquis 5 mg twice a day, aspirin 81 mg daily, losartan 50 mg at night, Crestor 40 mg at night, amlodipine 10 mg jorge y - Most recent echocardiogram obtained in March 2024 revealing ejection fraction 45 to 50%, no obvious regional wall motion abnormalities, bioprosthetic aortic valve without stenosis, trace TR REVIEW OF SYSTEMS: At the time of my exam: CONSTITUTIONAL: Denies fever or chills. HEENT: Denies blurred vision, vision changes, or eye pain. Denies hemoptysis CARDIOVASCULAR: Denies chest pain. Denies orthopnea. Denies PND. Denies palpitations RESPIRATORY: Denies shortness of breath. GASTROINTESTINAL: Denies abdominal pain. Denies nausea or vomiting. HEMATOLOGIC: Denies bleeding disorders. GENITOURINARY: Denies any blood in urine. SKIN: Denies pruitis. Denies rash. PHYSICAL EXAM: VITAL SIGNS: Reviewed. GENERAL: Well-developed in no acute distress. HEENT: Head is normocephalic. Pupils are equal, round. Sclerae anicteric. Mucous membranes of the mouth are moist. Neck supple. No JVD or thyromegaly LUNGS: Respirations even and unlabored. Lungs essentially clear to auscultation bilaterally. HEART: Regular rate and rhythm. S1 and S2 heard. ABDOMEN: Soft. Nondistended. Nontender. EXTREMITIES: Normal range of motion. No clubbing or cyanosis. Peripheral pulses intact. No lower extremity edema NEUROLOGIC: Awake and alert. Oriented x 3. ASSESSMENT: Non-STEMI Acute hypoxic respiratory failure Cardiogenic shock Hypotension requiring vasopressor support Acute kidney injury Coronary artery disease with previous CABG, 2017 History of bioprosthetic aortic valve replacement, 2017 Paroxysmal atrial fibrillation Peripheral vascular disease recent fem-fem bypass, 04/03/2024 Abdominal aortic aneurysm, measuring 3.7 cm PLAN: Obtain 2D echo to assess cardiac structure and function Begin aspirin 81 mg daily and Plavix 75 mg daily Add atorvastatin 80 mg at night Hold losartan and amlodipine Consult nephrology for evaluation Continue IV heparin. Hold Eliquis. Continue Levophed to maintain MAP greater than 60. Continue to monitor blood pressure Patient will require cardiac catheterization when he is medically stable Further recommendations pending patient course Nurse practitioner note has been reviewed by physician. Signing provider agrees with the documented findings, assessment, and plan of care documented by [employer] as a scribe. Past Medical History Past Medical History: Coronary Artery Disease (CAD), CVA/TIA Additional Past Medical History / Comment(s): Decrease circulation left lower ext. History of Any Multi-Drug Resistant Organisms: None Reported Past Surgical History: Coronary Bypass/CABG, Heart Catheterization, Heart Catheterization With Stent Additional Past Surgical History / Comment(s): right femorl bypass. Date of Last Stent Placement:: 2011 Past Psychological History: No Psychological Hx Reported Smoking Status: Former smoker Past Alcohol Use History: None Reported Past Drug Use History: None Reported Medications and Allergies Home Medications Medication Instructions Recorded Confirmed Type ALPRAZolam [Xanax] 0.5 mg PO BID PRN 04/03/24 05/22/24 History Apixaban [Eliquis] 5 mg PO BID 04/03/24 05/22/24 History Rosuvastatin Calcium [Crestor] 40 mg PO HS 04/03/24 05/22/24 History Aspirin 81 mg PO DAILY #30 tab 04/06/24 05/22/24 Rx Losartan [Cozaar] 50 mg PO HS 05/06/24 05/22/24 History amLODIPine [Norvasc] 10 mg PO DAILY 05/06/24 05/22/24 History Docusate [Colace] 100 mg PO HS 05/22/24 05/22/24 History Ferrous Sulfate [Feosol] 325 mg PO DAILY 05/22/24 05/22/24 History HYDROcodone/APAP 10-325MG [[place] 1 tab PO TID PRN 05/22/24 05/22/24 History 10-325] Levofloxacin [Levaquin] 500 mg PO DAILY 05/22/24 05/22/24 History Allergies Allergy/AdvReac Type Severity Reaction Status Date / Time clindamycin Allergy Rash/Hives Verified 05/22/24 08:58 Physical Exam Vitals: Vital Signs Temp Pulse Pulse Resp BP Pulse Ox 05/22/24 11:02 95 05/22/24 08:24 72 18 102/57 100 05/22/24 08:00 56 L 20 76/47 100 05/22/24 07:36 66 18 120/68 100 05/22/24 06:26 95 05/22/24 04:27 64 24 75/53 95 05/22/24 04:26 85 L 05/22/24 03:38 60 05/22/24 03:26 70 24 77/54 93 L 05/22/24 03:18 98.5 F 78 24 78/52 92 L Intake and Output 05/21/24 05/22/24 05/22/24 22:59 06:59 14:59 Intake Total 10.196 Balance 10.196 Intake: Intake, IV Titration 10.196 Amount Norepinephrine 4 mg In 10.196 Sodium Chloride 0.9% 250 ml @ 0.03 MCG/KG/MIN 10. 369 mls/hr IV .Q24H ONE Rx#:[id number] Other: Weight 90.718 kg Results 05/22/24 03:28 05/22/24 03:28 Cardiac Enzymes 05/22/24 05/22/24 05/22/24 Range/Units 03:28 03:28 07:05 AST 128 H (17-59) U/L Troponin I 29.000 H* 28.500 H* (0.000-0.034) ng/mL Coagulation 05/22/24 Range/Units 03:28 PT 12.2 (10.0-12.5) sec APTT 29.2 (22.0-30.0) sec CBC 05/22/24 Range/Units 03:28 WBC 15.4 H (3.8-10.6) k/uL RBC 3.78 L (4.30-5.90) m/uL Hgb 10.5 L (13.0-17.5) gm/dL Hct 32.3 L (39.0-53.0) % Plt Count 167 (150-450) k/uL Comprehensive Metabolic Panel 05/22/24 Range/Units 03:28 Sodium 129 L (137-145) mmol/L Potassium 4.0 (3.5-5.1) mmol/L Chloride 103 (98-107) mmol/L Carbon Dioxide 23 (22-30) mmol/L BUN 36 H (9-20) mg/dL Creatinine 2.21 H (0.66-1.25) mg/dL Glucose 119 H (74-99) mg/dL Calcium 7.9 L (8.4-10.2) mg/dL AST 128 H (17-59) U/L ALT 35 (4-49) U/L Alkaline Phosphatase 56 (38-126) U/L Total Protein 5.6 L (6.3-8.2) g/dL Albumin 2.5 L (3.5-5.0) g/dL Current Medications Generic Name Dose Route Start Last Admin Trade Name Freq PRN Reason Stop Dose Admin Alprazolam 0.5 mg 05/22/24 09:35 Alprazolam 0.5 Mg Tab PO BID PRN Anxiety Aspirin 81 mg 05/23/24 09:00 Aspirin 81 Mg PO DAILY [facility] Atorvastatin Calcium 80 mg 05/22/24 21:00 Atorvastatin 80 Mg Tab PO HS ROSALINA Clopidogrel Bisulfate 75 mg 05/22/24 09:15 Clopidogrel 75 Mg Tab PO DAILY [facility] Ferrous Sulfate 325 mg 05/23/24 09:00 Ferrous Sulfate 325 Mg Tab PO DAILY [facility] Heparin Sodium (Porcine) 0 unit 05/22/24 05:09 Heparin Sodium 1,000 Un/Ml (10ml Vl) IV PER PROTOCOL PRN Low PTT Protocol Heparin Sodium/Sodium Chloride 250 mls @ 10 mls/hr 05/22/24 05:15 05/22/24 07:07 25,000 unit/ Sodium Chloride IV 11.023 units/kg/hr .Q24H ROSALINA 10 mls/hr Administration Protocol 11.023 UNITS/KG/HR Norepinephrine Bitartrate 4 mg 254 mls @ 10.369 mls/hr 05/22/24 06:17 05/22/24 08:04 / Sodium Chloride IV 05/23/24 06:16 0.04 mcg/kg/min .Q24H ONE 13.825 mls/hr Titration Protocol 0.03 MCG/KG/MIN Nitroglycerin 0.4 mg 05/22/24 05:36 Nitroglycerin Sl Tabs 0.4 Mg Tab SUBLINGUAL Q5M PRN Chest Pain Intake and Output 05/21/24 05/22/24 05/22/24 22:59 06:59 14:59 Intake Total 10.196 Balance 10.196 Intake: Intake, IV Titration 10.196 Amount Norepinephrine 4 mg In 10.196 Sodium Chloride 0.9% 250 ml @ 0.03 MCG/KG/MIN 10. 369 mls/hr IV .Q24H ONE Rx#:[id number] Other: Weight 90.718 kg 05/22/24 03:28 05/22/24 03:28
[2024-05-22] MEDS: ALPRAZolam 0.5 MG TAB PO PRN (14:07)
[2024-05-22] MEDS: CLOPIDOGREL 75 MG TAB PO SCH (14:07)
--- NOTE | 2024-05-22 14:31 | P.NPCON ---
History of Present Illness - Reason for Consult Consult date: 05/22/24 - Chief Complaint Chest Pain - History of Present Illness Patient is a 73-year-old gentleman presented to ED for chest pain. Patient stated he was all right 3 days back when he started noticing chest pain. Chest pain was located all across the chest, states it starts in the back and goes to the front, intermittent, pressure-like, no aggravating or relieving factor associated chest pain. Patient stated that over the last 3 days chest pain has become more constant and severe and it feels like he is going to pass out. Chest pain was associate with shortness of breath and patient was diaphoretic. Seen in ED on non-rebreather. Still with chest pain and states similar to when he had heart attack in past. Previous history of CABG at [place] in 2017. Denies nay history of kidney issues. Per daughter also recently had CT with contrast and was being treated for UTI. GENERAL: AAOx3 HEENT: EOMI CARDIOVASCULAR: RRR. +S1/S2 PULMONARY: Tachypneic, coarse breath sounds ABDOMEN: Soft, nontender, non distended MUSCULOSKELETAL: No joint swelling or deformity. EXTREMITIES: No cyanosis, clubbing, or pedal edema. Review of Systems Constitutional: Reports as per HPI Past Medical History Past Medical History: Coronary Artery Disease (CAD), CVA/TIA Additional Past Medical History / Comment(s): Decrease circulation left lower ext. History of Any Multi-Drug Resistant Organisms: None Reported Past Surgical History: Coronary Bypass/CABG, Heart Catheterization, Heart Catheterization With Stent Additional Past Surgical History / Comment(s): right femorl bypass. Date of Last Stent Placement:: 2011 Past Psychological History: No Psychological Hx Reported Smoking Status: Former smoker Past Alcohol Use History: None Reported Past Drug Use History: None Reported Medications and Allergies Home Medications Medication Instructions Recorded Confirmed Type ALPRAZolam [Xanax] 0.5 mg PO BID PRN 04/03/24 05/22/24 History Apixaban [Eliquis] 5 mg PO BID 04/03/24 05/22/24 History Rosuvastatin Calcium [Crestor] 40 mg PO HS 04/03/24 05/22/24 History Aspirin 81 mg PO DAILY #30 tab 04/06/24 05/22/24 Rx Losartan [Cozaar] 50 mg PO HS 05/06/24 05/22/24 History amLODIPine [Norvasc] 10 mg PO DAILY 05/06/24 05/22/24 History Docusate [Colace] 100 mg PO HS 05/22/24 05/22/24 History Ferrous Sulfate [Feosol] 325 mg PO DAILY 05/22/24 05/22/24 History HYDROcodone/APAP 10-325MG [[place] 1 tab PO TID PRN 05/22/24 05/22/24 History 10-325] Levofloxacin [Levaquin] 500 mg PO DAILY 05/22/24 05/22/24 History Allergies Allergy/AdvReac Type Severity Reaction Status Date / Time clindamycin Allergy Rash/Hives Verified 05/22/24 08:58 Physical Exam Vitals: Vital Signs Temp Pulse Pulse Resp BP Pulse Ox 05/22/24 11:02 95 05/22/24 08:24 72 18 102/57 100 05/22/24 08:00 56 L 20 76/47 100 05/22/24 07:36 66 18 120/68 100 05/22/24 06:26 95 05/22/24 04:27 64 24 75/53 95 05/22/24 04:26 85 L 05/22/24 03:38 60 05/22/24 03:26 70 24 77/54 93 L 05/22/24 03:18 98.5 F 78 24 78/52 92 L Intake and Output 05/21/24 05/22/24 05/22/24 22:59 06:59 14:59 Intake Total 10.196 Balance 10.196 Intake: Intake, IV Titration 10.196 Amount Norepinephrine 4 mg In 10.196 Sodium Chloride 0.9% 250 ml @ 0.03 MCG/KG/MIN 10. 369 mls/hr IV .Q24H ONE Rx#:[id number] Other: Weight 90.718 kg Results - Lab Results Most recent lab results Calcium 7.9 mg/dL (8.4-10.2) L 05/22/24 03:28 Magnesium 1.9 mg/dL (1.6-2.3) 05/22/24 03:28 05/22/24 03:28 05/22/24 03:28 Assessment and Plan Assessment: 1. Non-oliguric SHAVON 2/2 ATN. Due to hypotension/shock. Baseline creatinine 0.9, presented 2.2. 2. Hyponatremia, suspect hypervolemic. Sodium mild 129 3. NSTEMI 4. Cardiogenic shock on Levophed. 5. Hypoxic respiratory failure Plan: Received IVF over night Pressors as need for BP support Check renal US, UA Strict I/O's, daily BMP OK for heart cath from nephrology standpoint if deemed urgent.
--- NOTE | 2024-05-22 14:56 | P.CNPUL ---
History of Present Illness Consult date: 05/22/24 Requesting physician: Chapo Fraser Reason for consult: other (Hypotension and chest pain) Chief complaint: Shortness of breath and chest pain History of present illness: This is a 73-year-old white male with history of significant cardiac history including history of coronary artery disease, previous CABG, and previous aortic valve replacement, history of ischemic cardiomyopathy and LV dysfunction, chronic atrial fibrillation, history of aortic stenosis and previous aortic valve replacement, peripheral vessel occlusive disease, and recent right common femoral thromboendarterectomy with patch angioplasty, left common femoral thromboendarterectomy, femoral to femoral bypass utilizing 8 mm PTFE bypass graft this was done by Dr. Antony on 04/04/2024 patient presented this time to the hospital with mostly complaining of chest pain, has been noticing this pain for the last 3 days, describes the pain across the chest, and radiates to the back associated with shortness of breath, diaphoresis. Patient was seen in the ER, and he was already seen by multiple consultants including cardiology, patient was noted to have Q waves in V3 V4 V5 V6, and he was also noted to have abnormal troponin level. Patient was also noted to be hypotensive requiring norepinephrine and the patient will need to be admitted to the ICU, hence this consult was initiated. Based on the presentation patient seems to be having cardiogenic shock with hypotension requiring vasopressor support. In addition the patient noted to have acute kidney injury and he was seen by nephrology on consultation. No cough, no fever, no chills, no hemoptysis, chest x-ray showed minimal pulmonary vascular congestion, no evidence of infiltrate/pneumonia labs were reviewed patient had WBC count of 15.4 hemoglobin 10.5 sodium of 129 potassium 4.0 BUN is 36 creatinine 2.21, troponin was 29,000's and BNP level was 24 ,400. Patient was seen by cardiology today while in the ER, and the recommendation was to get a 2D echocardiogram, aspirin, atorvastatin, hold losartan and amlodipine for low blood pressure, continue heparin and presently Eliquis is on hold, norepinephrine to be titrated to mean of above 60. Cardiology is considering cardiac catheterization on this patient once he is medically stable. Review of Systems CONSTITUTIONAL: No fever no chills, no weight loss. HEENT: Negative CARDIOVASCULAR: As noted in HPI mostly chest pain and episodes of diaphoresis. RESPIRATORY: Shortness of breath and chest pain GASTROINTESTINAL: Denies abdominal pain. Denies nausea or vomiting. HEMATOLOGIC: Denies bleeding disorders. GENITOURINARY: Denies any blood in urine. SKIN: Denies pruitis. Denies rash. Psychiatric: Denies any symptoms of active depression Past Medical History Past Medical History: Coronary Artery Disease (CAD), CVA/TIA Additional Past Medical History / Comment(s): Decrease circulation left lower ext. History of Any Multi-Drug Resistant Organisms: None Reported Past Surgical History: Coronary Bypass/CABG, Heart Catheterization, Heart Catheterization With Stent Additional Past Surgical History / Comment(s): right femorl bypass. Date of Last Stent Placement:: 2011 Past Psychological History: No Psychological Hx Reported Smoking Status: Former smoker Past Alcohol Use History: None Reported Past Drug Use History: None Reported Medications and Allergies Home Medications Medication Instructions Recorded Confirmed Type ALPRAZolam [Xanax] 0.5 mg PO BID PRN 04/03/24 05/22/24 History Apixaban [Eliquis] 5 mg PO BID 04/03/24 05/22/24 History Rosuvastatin Calcium [Crestor] 40 mg PO HS 04/03/24 05/22/24 History Aspirin 81 mg PO DAILY #30 tab 04/06/24 05/22/24 Rx Losartan [Cozaar] 50 mg PO HS 05/06/24 05/22/24 History amLODIPine [Norvasc] 10 mg PO DAILY 05/06/24 05/22/24 History Docusate [Colace] 100 mg PO HS 05/22/24 05/22/24 History Ferrous Sulfate [Feosol] 325 mg PO DAILY 05/22/24 05/22/24 History HYDROcodone/APAP 10-325MG [[place] 1 tab PO TID PRN 05/22/24 05/22/24 History 10-325] Levofloxacin [Levaquin] 500 mg PO DAILY 05/22/24 05/22/24 History Allergies Allergy/AdvReac Type Severity Reaction Status Date / Time clindamycin Allergy Rash/Hives Verified 05/22/24 08:58 Physical Exam Vitals: Vital Signs Temp Pulse Pulse Resp BP Pulse Ox 05/22/24 14:06 98.2 F 97 22 122/67 98 05/22/24 13:54 93 20 123/76 97 05/22/24 11:02 95 05/22/24 11:00 92 18 100/69 96 05/22/24 08:24 72 18 102/57 100 05/22/24 08:00 56 L 20 76/47 100 05/22/24 07:36 66 18 120/68 100 05/22/24 06:26 95 05/22/24 04:27 64 24 75/53 95 05/22/24 04:26 85 L 05/22/24 03:38 60 05/22/24 03:26 70 24 77/54 93 L 05/22/24 03:18 98.5 F 78 24 78/52 92 L Intake and Output 05/21/24 05/22/24 05/22/24 22:59 06:59 14:59 Intake Total 10.196 Balance 10.196 Intake: Intake, IV Titration 10.196 Amount Norepinephrine 4 mg In 10.196 Sodium Chloride 0.9% 250 ml @ 0.03 MCG/KG/MIN 10. 369 mls/hr IV .Q24H ONE Rx#:[id number] Other: Weight 90.718 kg GENERAL: Revealed a 73-year-old anxious white male in no distress, on high flow nasal cannula at 15 L/min with O2 sat of 98% HEENT: Pupils are round and equally reacting to light. EOMI. No scleral icterus. No conjunctival pallor. Normocephalic, atraumatic. No pharyngeal erythema. No thyromegaly. CARDIOVASCULAR: Normal S1-S2, 2/6 systolic murmur throughout the precordium PULMONARY: Anxious, tachypneic, minimal fine crackles at the bases no rhonchi no wheezes. ABDOMEN: Soft, nontender, nondistended, normoactive bowel sounds. No palpable organomegaly. MUSCULOSKELETAL: No joint swelling or deformity. EXTREMITIES: No cyanosis, clubbing, or pedal edema. NEUROLOGICAL: Alert and oriented x 3 no gross focal deficit Psychiatric: Anxious, normal affect, normal mental status examination SKIN: No rashes. Results - Laboratory Findings CBC and BMP: 05/22/24 03:28 05/22/24 03:28 PT/INR, D-dimer PT 12.2 sec (10.0-12.5) 05/22/24 03:28 INR 1.1 (<1.2) 05/22/24 03:28 Abnormal lab findings: Abnormal Labs 05/22/24 05/22/24 05/22/24 03:28 03:28 03:28 WBC 15.4 H RBC 3.78 L Hgb 10.5 L Hct 32.3 L Neutrophils # 13.3 H Sodium 129 L BUN 36 H Creatinine 2.21 H Glucose 119 H Calcium 7.9 L AST 128 H Troponin I 29.000 H* Total Protein 5.6 L Albumin 2.5 L 05/22/24 05/22/24 07:05 12:19 WBC RBC Hgb Hct Neutrophils # Sodium BUN Creatinine Glucose Calcium AST Troponin I 28.500 H* 32.800 H* Total Protein Albumin - Diagnostic Findings Chest x-ray: image reviewed (Noted in HPI, mild congestive changes noted) Assessment and Plan Assessment: Impression: Acute hypoxic respiratory failure Acute on chronic systolic congestive heart failure Acute cardiogenic shock with chronic systolic congestive heart failure Acute kidney injury, either secondary to hypotension/ATN or could be cardiorenal Peripheral vessel occlusive disease and recent vascular surgery as noted above Hypotension secondary to acute cardiogenic shock, patient remains on pressors History of underlying coronary artery disease with previous CABG in 2017 History of bioprosthetic aortic valve replacement in 2017 Paroxysmal atrial fibrillation Abdominal aortic aneurysm Recommendation: Admit patient to ICU Hold patient's blood pressure medications including losartan and amlodipine for now Continue to titrate norepinephrine Agree with heparin Nephrology consultation Cardiac consultation Patient may need further cardiac workup including cardiac catheterization and this to be addressed by cardiology Nephrology is addressing his renal failure Prognosis is definitely poor and guarded Hold on diuretics for now as the chest x-ray does not seem to be quite impressive but the patient does have mild pulmonary vascular congestion Will continue to follow Prognosis is extremely poor and guarded Time with Patient: Greater than 30
[2024-05-22] MEDS: HEPARIN SODIUM 1,000 UN/ML (10ML VL) IV PRN (15:19)
--- NOTE | 2024-05-22 17:48 | US ---
EXAMINATION TYPE: US kidneys/renal and bladder DATE OF EXAM: 05/22/2024 COMPARISON: NONE CLINICAL INDICATION: Male, 73 years old with history of Shavon; SHAVON TECHNIQUE: Grayscale imaging of the bilateral kidneys and urinary bladder: FINDINGS: EXAM MEASUREMENTS: Right Kidney: 11.9 x 6.3 x 4.3 cm Left Kidney: 12.0 x 5.9 x 4.8 cm Right Kidney: lobulated contour. anechoic lesion = 2.1 x 2.1 x 1.7cm. dense echogenic focus lower aki e = 0.7cm Left Kidney: no evidence of hydronephrosis Bladder: appears wnl Bilateral Jets seen: no There is no evidence for hydronephrosis at this point in time. No nephrolithiasis is seen. No elicia s are identified. The urinary bladder is anechoic. IMPRESSION: 1. No evidence for obstructive uropathy or. 2. Right nonobstructing renal calculus. 3. Right renal cyst. [facility], , 05/22/2024 5:46 PM
[2024-05-22 18:36] LABS: Amorphous Sediment,Urine Occasional /hpf; Appearance,Urine Cloudy (Clear); Bilirubin,Urine Negative (Negative); Blood,Urine Large (Negative); Color,Urine Yellow; Glucose,Urine (UA) Negative (Negative); Ketones,Urine Negative (Negative); Leukocyte Esterase,Urine Negative (Negative); Mucus,Urine Rare /hpf; Nitrite,Urine Negative (Negative); Protein,Urine 1+ (Negative); RBC,Urine 59 /hpf (0-5); Specific Gravity,Urine 1.019 (1.001-1.035); Squamous Epithelial Cell,Urine <1 /hpf (0-4); Urobilinogen,Urine <2.0 mg/dL (<2.0); WBC,Urine 5 /hpf (0-5)
[2024-05-22] MEDS: ATORVASTATIN 80 MG TAB PO SCH (20:14)
[2024-05-22 21:46] LABS: ABG Base Excess -2.9 mmol/L; ABG HCO3 22 mmol/L (21-25); ABG PCO2 38 mmHg (35-45); ABG PH 7.38 (7.35-7.45); ABG PO2 76 mmHg (83-108); ABG TCO2 23 mmol/L (19-24); Allen Test Performed? Yes
--- NOTE | 2024-05-22 21:47 | XR ---
EXAMINATION TYPE: XR chest 1V portable DATE OF EXAM: 05/22/2024 9:39 PM COMPARISON: Chest radiographs from 05/22/2024 CLINICAL INDICATION: Male, 73 years old with history of SOB; [facility] TECHNIQUE: XR chest 1V portable Frontal view of the chest. FINDINGS: Lungs/Pleura: New right midlung airspace opacities. There is no evidence of pleural effusion, , or pn eumothorax. Pulmonary vascularity: Unremarkable. Heart/mediastinum: Cardiomediastinal silhouette is unremarkable. Musculoskeletal: No acute osseous pathology. IMPRESSION: New from prior same day midlung airspace opacities. [facility], , 05/22/2024 9:44 PM
[2024-05-22] MEDS: FUROSEMIDE 10 MG/ML 4 ML VIAL IV STA (22:27)
[2024-05-22] MEDS: LORazepam 2 MG/ML INJ IV STA (22:31)
[2024-05-23] MEDS: NOREPINEPHRINE 4 MG in SODIUM CHLORIDE 0.9% 250 ML IV ONE (02:08)
[2024-05-23 07:01] LABS: Basophils % (A) 0 %; Eosinophils # (A) 0.1 k/uL (0-0.7); Eosinophils % (A) 0 %; HCT 31.7 % (39.0-53.0); HGB 10.4 gm/dL (13.0-17.5); Lymphocytes # (A) 1.7 k/uL (1.0-4.8); Lymphocytes % (A) 12 %; MCH 27.9 pg (25.0-35.0); MCHC 32.7 g/dL (31.0-37.0); MCV 85.4 fL (80.0-100.0); Mean Platelet Volume 7.1; Monocytes # (A) 0.8 k/uL (0-1.0); Monocytes % (A) 5 %; Neutrophils # (A) 11.7 k/uL (1.3-7.7); Neutrophils % (A) 81 %; Platelet Count 184 k/uL (150-450); RBC 3.72 m/uL (4.30-5.90); RDW 14.5 % (11.5-15.5); WBC 14.5 k/uL (3.8-10.6)
[2024-05-23 07:16] LABS: African American GFR (CKD) 43 (>60 ml/min/1.73 sqM); Anion Gap 6 mmol/L; Blood Urea Nitrogen 35 mg/dL (9-20); Calcium 7.8 mg/dL (8.4-10.2); Carbon Dioxide 25 mmol/L (22-30); Chloride 102 mmol/L (98-107); Glucose 113 mg/dL (74-99); Non-African American GFR(CKD) 37 (>60 ml/min/1.73 sqM); Sodium 133 mmol/L (137-145)
--- NOTE | 2024-05-23 07:36 | CA ---
Transthoracic Echo Report Name: Dimitrios Obrien Age: 73 Gender: M : 1950 Exam Date: 05/22/2024 16:46 Exam Location: [facility] Ht (in): 67 Wt (lb): 200 Ordering Physician: Gilberto Childers MD Attending/Referring Phys: Section Supervisor Diane Agosto RDCS Procedure CPT: Indications: evaluate function Cardiac Hx: AOV REPLACED IN 2017 Technical Quality: Technically difficult study Contrast 1: Definity Total Dose (mL): 2 Contrast 2: Total Dose (mL): MEASUREMENTS (Male / Female) Normal Values 2D ECHO LV Diastolic Diameter PLAX 4.6 cm 4.2 - 5.9 / 3.9 - 5.3 cm LV Systolic Diameter PLAX 4.1 cm IVS Diastolic Thickness 2.0 cm 0.6 - 1.0 / 0.6 - 0.9 cm LVPW Diastolic Thickness 2.0 cm 0.6 - 1.0 / 0.6 - 0.9 cm LV Relative Wall Thickness 0.9 RV Internal Dim ED PLAX 3.9 cm LVOT Diameter 2.7 cm LA Systolic Diameter LX 4.9 cm 3.0 - 4.0 / 2.7 - 3.8 cm LA Volume 98.8 cm??? 18 - 58 / 22 - 52 cm??? LA Volume Index 47.1 cm???/m??? 16 - 28 cm???/m??? M-MODE Aortic Root Diameter MM 4.5 cm AV Cusp Separation MM 2.1 cm DOPPLER AV Peak Velocity 70.9 cm/s AV Peak Gradient 2.0 mmHg AV Mean Velocity 49.6 cm/s AV Mean Gradient 1.2 mmHg AV Velocity Time Integral 25.2 cm LVOT Peak Velocity 103.7 cm/s LVOT Peak Gradient 4.3 mmHg LVOT Velocity Time Integral 22.5 cm LVOT Stroke Volume 129.3 cm??? LVOT Stroke Volume Index 63.9 ml/m??? LVOT Cardiac Index 4679.7 cm???/min???m??? AV Area Cont Eq vti 5.1 cm??? AV Area Cont Eq pk 8.4 cm??? MV Peak Velocity 236.1 cm/s MV Peak Gradient 22.3 mmHg MV Mean Velocity 93.7 cm/s MV Mean Gradient 5.2 mmHg MV Velocity Time Integral 41.5 cm MV Area PHT 5.6 cm??? Mitral E Point Velocity 190.2 cm/s Mitral A Point Velocity 125.7 cm/s Mitral E to A Ratio 1.5 MV Deceleration Time 135.4 ms TR Peak Velocity 307.2 cm/s TR Peak Gradient 37.8 mmHg Right Ventricular Systolic Press 52.8 mmHg FINDINGS Left Ventricle Left ventricular ejection fraction is estimated at 30-35 %. Left ventricular cavity size normal. Severe concentric left ventricular hypertrophy. Apical septum hypokinesis. Apical anterior hypokinesis, apical inferior hypokinesis Right Ventricle Moderate right ventricular dilatation. Moderate to severe pulmonary hypertension. Right ventricular systolic pressure estimated at 53 mm hg. Right Atrium Normal right atrial size. No right atrial thrombus or mass seen. Left Atrium Moderately increased left atrial diameter. Severely increased left atrial volume. Mildly increased left atrial area. No left atrial thrombus or mass present. Mitral Valve Structurally normal mitral valve. Mitral annular calcification. Severe mitral regurgitation. Aortic Valve Normally functioning bioprosthetic aortic valve without stenosis with a peak velocity of 0.7m/s, peak gradient 2 mmHg, mean gradient 1.2 mmHg, and estimated aortic valve area of 5.1 cm???. Tricuspid Valve Structurally normal tricuspid valve. [id number]-lh-nygzeonp tricuspid regurgitation. Pulmonic Valve Pulmonic valve not well visualized. Pericardium No pericardial effusion. Aorta Moderate aortic dilatation at the level of the sinuses of valsalva 45 mm CONCLUSIONS Moderate to severe LV dysfunction with an ejection fraction of 30-35% with apical hypokinesis There is a normally functioning bioprosthetic valve in aortic position Moderate to severe pulmonary hypertension Moderate dilatation of the right ventricle Previewed by: Dr. Shane Crews MD (Electronically Signed) Final Date: 23 May 2024 07:35
--- NOTE | 2024-05-23 08:23 | XR ---
EXAMINATION TYPE: XR chest 1V portable DATE OF EXAM: 05/23/2024 8:14 AM COMPARISON: Chest radiograph from one day prior. CLINICAL INDICATION: Male, 73 years old with history of chf; [facility] TECHNIQUE: XR chest 1V portable Frontal view of the chest. FINDINGS: Lungs/Pleura: Improved aeration of lungs on today's exam with persistent airspace opacities scattered throughout the lungs. No evidence of pneumothorax or large pleural effusion. Pulmonary vascularity: Unremarkable. Heart/mediastinum: Cardiomediastinal silhouette is enlarged. Musculoskeletal: No acute osseous pathology. Other findings: None Lines/Tubes: IMPRESSION: Improved aeration of the lungs with persistent multifocal airspace opacities. [facility], , 05/23/2024 8:21 AM
[2024-05-23] MEDS ORDERED: ASPIRIN 325 MG TAB PO SCH (09:00)
[2024-05-23] MEDS: FERROUS SULFATE 325 MG TAB PO SCH (09:16)
[2024-05-23] MEDS: ASPIRIN 81 MG PO SCH (09:17)
[2024-05-23] MEDS: FUROSEMIDE 10 MG/ML 4 ML VIAL IV STA (09:18)
--- NOTE | 2024-05-23 11:19 | P.PN ---
Subjective Progress Note Date: 05/23/24 Patient seen in follow-up for SHAVON. Breathing improved this morning and off Levophed. Vital signs are stable. General: No acute distress. HEENT: Head exam is unremarkable. LUNGS: Diminished breath sounds HEART: Rate and Rhythm are regular. ABDOMEN: Nontender. EXTREMITITES: + edema. Objective - Vital Signs Vital signs: Vital Signs Temp 98.9 F 05/23/24 05:00 Pulse 80 05/23/24 09:00 Resp 20 05/23/24 09:00 BP 102/63 05/23/24 09:00 Pulse Ox 98 05/23/24 09:00 FiO2 Intake & Output 05/22/24 05/23/24 05/23/24 18:59 06:59 18:59 Intake Total 196.972 257.807 122.99 Output Total 1900 Balance 196.972 -1642.193 122.99 Intake: Intake, IV Titration 196.972 257.807 122.99 Amount Heparin Sod,Pork in 0.45% 82.167 118.612 NaCl 25,000 unit In 0.45 % NaCl 1 250ml.bag @ 11. 023 UNITS/KG/HR 10 mls/hr IV .Q24H [facility] Rx#: [id number] Norepinephrine 4 mg In 114.805 139.195 Sodium Chloride 0.9% 250 ml @ 0.03 MCG/KG/MIN 10. 369 mls/hr IV .Q24H [facility] Rx#:[id number] Norepinephrine 4 mg In 122.99 Sodium Chloride 0.9% 250 ml @ 0.03 MCG/KG/MIN 10. 369 mls/hr IV .Q24H [facility] Rx#:[id number] Output: Urine 1900 - Labs CBC & Chem 7: 05/23/24 06:22 05/23/24 06:22 Labs: Abnormal Lab Results - Last 24 Hours (Table) 05/22/24 05/22/24 05/22/24 Range/Units 12:19 14:30 16:10 WBC (3.8-10.6) k/uL RBC (4.30-5.90) m/uL Hgb (13.0-17.5) gm/dL Hct (39.0-53.0) % Neutrophils # (1.3-7.7) k/uL APTT 35.7 H (22.0-30.0) sec ABG pO2 (83-108) mmHg Hemoglobin (13.0-17.5) gm/dL Sodium (137-145) mmol/L BUN (9-20) mg/dL Creatinine (0.66-1.25) mg/dL Glucose (74-99) mg/dL Calcium (8.4-10.2) mg/dL Troponin I 32.800 H* (0.000-0.034) ng/mL Urine Protein 1+ H (Negative) Urine Blood Large H (Negative) Urine RBC 59 H (0-5) /hpf Amorphous Sediment Occasional H (None) /hpf Urine Mucus Rare H (None) /hpf 05/22/24 05/22/24 05/23/24 Range/Units 21:38 23:27 06:22 WBC 14.5 H (3.8-10.6) k/uL RBC 3.72 L (4.30-5.90) m/uL Hgb 10.4 L (13.0-17.5) gm/dL Hct 31.7 L (39.0-53.0) % Neutrophils # 11.7 H (1.3-7.7) k/uL APTT 38.8 H (22.0-30.0) sec ABG pO2 76 L (83-108) mmHg Hemoglobin 10.7 L (13.0-17.5) gm/dL Sodium (137-145) mmol/L BUN (9-20) mg/dL Creatinine (0.66-1.25) mg/dL Glucose (74-99) mg/dL Calcium (8.4-10.2) mg/dL Troponin I (0.000-0.034) ng/mL Urine Protein (Negative) Urine Blood (Negative) Urine RBC (0-5) /hpf Amorphous Sediment (None) /hpf Urine Mucus (None) /hpf 05/23/24 Range/Units 06:22 WBC (3.8-10.6) k/uL RBC (4.30-5.90) m/uL Hgb (13.0-17.5) gm/dL Hct (39.0-53.0) % Neutrophils # (1.3-7.7) k/uL APTT (22.0-30.0) sec ABG pO2 (83-108) mmHg Hemoglobin (13.0-17.5) gm/dL Sodium 133 L (137-145) mmol/L BUN 35 H (9-20) mg/dL Creatinine 1.77 H (0.66-1.25) mg/dL Glucose 113 H (74-99) mg/dL Calcium 7.8 L (8.4-10.2) mg/dL Troponin I (0.000-0.034) ng/mL Urine Protein (Negative) Urine Blood (Negative) Urine RBC (0-5) /hpf Amorphous Sediment (None) /hpf Urine Mucus (None) /hpf Assessment and Plan Assessment: 1. Non-oliguric SHAVON 2/2 ATN. Due to hypotension/shock. Baseline creatinine 0.9, presented 2.2, improved to 1.7 today. UA showed blood and RBC. Renal US showed no hydronephrosis. 2. Hyponatremia, suspect hypervolemic. Sodium mild 129 3. NSTEMI 4. Cardiogenic shock on Levophed. 5. Hypoxic respiratory failure Plan: Pressors as need for BP support Strict I/O's, daily BMP Continue supportive care, renal function should continue to improve
--- NOTE | 2024-05-23 12:46 | P.PN ---
Subjective HISTORY OF PRESENT ILLNESS: This is a 73-year-old male with a past medical history significant for coronary artery disease with previous CABG, peripheral vascular disease, aortic stenosis with previous aortic valve replacement, ischemic cardiomyopathy, and atrial fibrillation. 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 We have been asked to see the patient in consultation for non-STEMI. Patient examined at the bedside in the emergency room. Patient presented to the hospital with a chief complaint of chest pain. Patient states a few days ago he began to have chest discomfort in the middle of his chest. He also reports having some shortness of breath. No nausea or vomiting. He denied any radiation of the pain. Patient was found to have elevated troponins of 29 and was started on IV heparin. Patient is also found to be hypotensive and was started on Levophed. Additionally he is hypoxic and is currently on a nonrebreather. DIAGNOSTICS: - EKG reveals sinus mechanism with nonspecific ST-T wave changes. Q waves V3V6. repeat EKG reveals sinus mechanism with T wave inversions inferiorly - Chest xray mild vascular congestion - Laboratory data: WBC 15.4. Hemoglobin 10.5. Platelet count 167. Sodium 129. Potassium 4.0. BUN 36. Creatinine 2.21. proBNP 24,400. Troponin 29.0. 28.5. - Current home cardiac medications include Eliquis 5 mg twice a day, aspirin 81 mg daily, losartan 50 mg at night, Crestor 40 mg at night, amlodipine 10 mg daily - Most recent echocardiogram obtained in March 2024 revealing ejection fraction 45 to 50%, no obvious regional wall motion abnormalities, bioprosthetic aortic valve without stenosis, trace TR 05/23/2024 Patient examined this morning in the emergency room. Patient currently denies chest pain or pressure. He continues to report shortness of breath. He remains on nonrebreather this morning. He remains on small dose of Levophed for blood pressure support. Creatinine slightly improved today at 1.77. Echocardiogram completed revealing ejection fraction 30 to 35%, severe concentric LVH, apical septal hypokinesis, apical anterior hypokinesis, apical inferior hypokinesis, moderate to severe pulmonary hypertension, severe mitral regurgitation, normally functioning bioprosthetic aortic valve without stenosis, mild to moderate tricuspid regurgitation PHYSICAL EXAM: VITAL SIGNS: Reviewed. GENERAL: Well-developed in no acute distress. HEENT: Head is normocephalic. Pupils are equal, round. Sclerae anicteric. Mucous membranes of the mouth are moist. Neck supple. No JVD or thyromegaly LUNGS: Respirations even and unlabored. Lungs diminished bilaterally HEART: Regular rate and rhythm. S1 and S2 heard. Systolic murmur noted ABDOMEN: Soft. Nondistended. Nontender. EXTREMITIES: Normal range of motion. No clubbing or cyanosis. Peripheral p ulses intact. No lower extremity edema NEUROLOGIC: Awake and alert. Oriented x 3. ASSESSMENT: Non-STEMI Acute hypoxic respiratory failure Cardiogenic shock Hypotension requiring vasopressor support Ischemic cardiomyopathy, 30 to 35% Acute kidney injury Coronary artery disease with previous CABG, 2017 History of bioprosthetic aortic valve replacement, 2017 Paroxysmal atrial fibrillation Peripheral vascular disease recent fem-fem bypass, 04/03/2024 Abdominal aortic aneurysm, measuring 3.7 cm Moderate to severe pulmonary hypertension PLAN: Continue current cardiac medications Continue to hold hold losartan and amlodipine Nephrology following for acute kidney injury Give 1 dose of IV Lasix 40 mg Continue IV heparin. Hold Eliquis. Wean off Levophed if blood pressure will tolerate Patient will require cardiac catheterization when he is medically stable Further recommendations pending patient course Nurse practitioner note has been reviewed by physician. Signing provider agrees with the documented findings, assessment, and plan of care documented by FIBERGLASS LUGGAGE MOLDER as a scribe. Objective - Vital Signs Vital signs: Vital Signs Temp 98.9 F 05/23/24 05:00 Pulse 68 05/23/24 12:00 Resp 20 05/23/24 12:00 BP 83/53 05/23/24 12:00 Pulse Ox 93 L 05/23/24 12:00 FiO2 Intake & Output 05/22/24 05/23/24 05/23/24 18:59 06:59 18:59 Intake Total 196.972 257.807 122.99 Output Total 1900 900 Balance 196.972 -1642.193 -777.01 Intake: Intake, IV Titration 196.972 257.807 122.99 Amount Heparin Sod,Pork in 0.45% 82.167 118.612 NaCl 25,000 unit In 0.45 % NaCl 1 250ml.bag @ 11. 023 UNITS/KG/HR 10 mls/hr IV .Q24H [facility] Rx#: [id number] Norepinephrine 4 mg In 114.805 139.195 Sodium Chloride 0.9% 250 ml @ 0.03 MCG/KG/MIN 10. 369 mls/hr IV .Q24H [facility] Rx#:[id number] Norepinephrine 4 mg In 122.99 Sodium Chloride 0.9% 250 ml @ 0.03 MCG/KG/MIN 10. 369 mls/hr IV .Q24H [facility] Rx#:[id number] Output: Urine 1900 900 - Labs CBC & Chem 7: 05/23/24 06:22 05/23/24 06:22 Labs: Abnormal Lab Results - Last 24 Hours (Table) 05/22/24 05/22/24 05/22/24 Range/Units 12:19 14:30 16:10 WBC (3.8-10.6) k/uL RBC (4.30-5.90) m/uL Hgb (13.0-17.5) gm/dL Hct (39.0-53.0) % Neutrophils # (1.3-7.7) k/uL APTT 35.7 H (22.0-30.0) sec ABG pO2 (83-108) mmHg Hemoglobin (13.0-17.5) gm/dL Sodium (137-145) mmol/L BUN (9-20) mg/dL Creatinine (0.66-1.25) mg/dL Glucose (74-99) mg/dL Calcium (8.4-10.2) mg/dL Troponin I 32.800 H* (0.000-0.034) ng/mL Urine Protein 1+ H (Negative) Urine Blood Large H (Negative) Urine RBC 59 H (0-5) /hpf Amorphous Sediment Occasional H (None) /hpf Urine Mucus Rare H (None) /hpf 05/22/24 05/22/24 05/23/24 Range/Units 21:38 23:27 06:22 WBC 14.5 H (3.8-10.6) k/uL RBC 3.72 L (4.30-5.90) m/uL Hgb 10.4 L (13.0-17.5) gm/dL Hct 31.7 L (39.0-53.0) % Neutrophils # 11.7 H (1.3-7.7) k/uL APTT 38.8 H (22.0-30.0) sec ABG pO2 76 L (83-108) mmHg Hemoglobin 10.7 L (13.0-17.5) gm/dL Sodium (137-145) mmol/L BUN (9-20) mg/dL Creatinine (0.66-1.25) mg/dL Glucose (74-99) mg/dL Calcium (8.4-10.2) mg/dL Troponin I (0.000-0.034) ng/mL Urine Protein (Negative) Urine Blood (Negative) Urine RBC (0-5) /hpf Amorphous Sediment (None) /hpf Urine Mucus (None) /hpf 05/23/24 Range/Units 06:22 WBC (3.8-10.6) k/uL RBC (4.30-5.90) m/uL Hgb (13.0-17.5) gm/dL Hct (39.0-53.0) % Neutrophils # (1.3-7.7) k/uL APTT (22.0-30.0) sec ABG pO2 (83-108) mmHg Hemoglobin (13.0-17.5) gm/dL Sodium 133 L (137-145) mmol/L BUN 35 H (9-20) mg/dL Creatinine 1.77 H (0.66-1.25) mg/dL Glucose 113 H (74-99) mg/dL Calcium 7.8 L (8.4-10.2) mg/dL Troponin I (0.000-0.034) ng/mL Urine Protein (Negative) Urine Blood (Negative) Urine RBC (0-5) /hpf Amorphous Sediment (None) /hpf Urine Mucus (None) /hpf
--- NOTE | 2024-05-23 13:34 | P.PN ---
Subjective Progress Note Date: 05/23/24 Principal diagnosis: Cardiogenic shock This is a 73-year-old white male with history of significant cardiac history including history of coronary artery disease, previous CABG, and previous aortic valve replacement, history of ischemic cardiomyopathy and LV dysfunction, chronic atrial fibrillation, history of aortic stenosis and previous aortic valve replacement, peripheral vessel occlusive disease, and recent right common femoral thromboendarterectomy with patch angioplasty, left common femoral thromboendarterectomy, femoral to femoral bypass utilizing 8 mm PTFE bypass g raft this was done by Dr. Antony on 04/04/2024 patient presented this time to the hospital with mostly complaining of chest pain, has been noticing this pain for the last 3 days, describes the pain across the chest, and radiates to the back associated with shortness of breath, diaphoresis. Patient was seen in the ER, and he was already seen by multiple consultants including cardiology, patient was noted to have Q waves in V3 V4 V5 V6, and he was also noted to have abnormal troponin level. Patient was also noted to be hypotensive requiring norepinephrine and the patient will need to be admitted to the ICU, hence this consult was initiated. Based on the presentation patient seems to be having cardiogenic shock with hypotension requiring vasopressor support. In addition the patient noted to have acute kidney injury and he was seen by nephrology on consultation. No cough, no fever, no chills, no hemoptysis, chest x-ray showed minimal pulmonary vascular congestion, no evidence of infiltrate/pneumonia labs were reviewed patient had WBC count of 15.4 hemoglobin 10.5 sodium of 129 pot assium 4.0 BUN is 36 creatinine 2.21, troponin was 29,000's and BNP level was 24 ,400. Patient was seen by cardiology today while in the ER, and the recommendation was to get a 2D echocardiogram, aspirin, atorvastatin, hold losartan and amlodipine for low blood pressure, continue heparin and presently Eliquis is on hold, norepinephrine to be titrated to mean of above 60. Cardiology is considering cardiac catheterization on this patient once he is medically stable. Patient was seen today on 05/23/2024, remains in the ER as ER hold, patient waiting for a bed to go to ICU. His presentation was a presentation of acute non-ST elevation myocardial infarction, cardiogenic shock, and acute hypoxic respiratory failure, patient required norepinephrine for his hypotension he also required diuretics for his pulmonary edema, his ejection fraction was noted to be about 30 to 35%. Today the patient is feeling better, breathing easier, he is now on 6 L nasal cannula with O2 saturation 93%, he is off norepinephrine, still receiving Lasix he received a dose of Lasix again today, I gave him Lasix last night as I was notified because of his shortness of breath, and chest x-ray was showing some evidence of mild pulmonary edema. WBC count today is 14.5 hemoglobin 10.4, PTT is 42.5, electrolytes are normal, creatinine is 1.77, down from 2.21 on admission. Chest x-ray continues to show mild interstitial edema, strongly doubt pneumonia Objective - Vital Signs Vital signs: Vital Signs Temp 98.9 F 05/23/24 05:00 Pulse 79 05/23/24 13:00 Resp 20 05/23/24 13:00 BP 92/63 05/23/24 13:00 Pulse Ox 92 L 05/23/24 13:00 FiO2 Intake & Output 05/22/24 05/23/24 05/23/24 18:59 06:59 18:59 Intake Total 196.972 257.807 122.99 Output Total 1900 900 Balance 196.972 -1642.193 -777.01 Intake: Intake, IV Titration 196.972 257.807 122.99 Amount Heparin Sod,Pork in 0.45% 82.167 118.612 NaCl 25,000 unit In 0.45 % NaCl 1 250ml.bag @ 11. 023 UNITS/KG/HR 10 mls/hr IV .Q24H [facility] Rx#: [id number] Norepinephrine 4 mg In 114.805 139.195 Sodium Chloride 0.9% 250 ml @ 0.03 MCG/KG/MIN 10. 369 mls/hr IV .Q24H [facility] Rx#:[id number] Norepinephrine 4 mg In 122.99 Sodium Chloride 0.9% 250 ml @ 0.03 MCG/KG/MIN 10. 369 mls/hr IV .Q24H [facility] Rx#:[id number] Output: Urine 1900 900 - Exam GENERAL: Revealed a 73-year-old anxious white male in no distress, on high flow nasal cannula at 6 L/min HEENT: Pupils are round and equally reacting to light. EOMI. No scleral icterus. No conjunctival pallor. Normocephalic, atraumatic. No pharyngeal erythema. No thyromegaly. CARDIOVASCULAR: Normal S1-S2, 2/6 systolic murmur throughout the precordium PULMONARY: Minimal fine crackles at the bases no rhonchi no wheezes ABDOMEN: Soft, nontender, nondistended, normoactive bowel sounds. No palpable organomegaly. MUSCULOSKELETAL: No joint swelling or deformity. EXTREMITIES: No cyanosis, clubbing, or pedal edema. NEUROLOGICAL: Alert and oriented x 3 no gross focal deficit Psychiatric: Less anxious, seems quite calm today. Normal affect, normal mental status examination SKIN: No rashes. - Labs CBC & Chem 7: 05/23/24 06:22 05/23/24 06:22 Labs: Abnormal Lab Results - Last 24 Hours (Table) 05/22/24 05/22/24 05/22/24 Range/Units 12:19 14:30 16:10 WBC (3.8-10.6) k/uL RBC (4.30-5.90) m/uL Hgb (13.0-17.5) gm/dL Hct (39.0-53.0) % Neutrophils # (1.3-7.7) k/uL APTT 35.7 H (22.0-30.0) sec ABG pO2 (83-108) mmHg Hemoglobin (13.0-17.5) gm/dL Sodium (137-145) mmol/L BUN (9-20) mg/dL Creatinine (0.66-1.25) mg/dL Glucose (74-99) mg/dL Calcium (8.4-10.2) mg/dL Troponin I 32.800 H* (0.000-0.034) ng/mL Urine Protein 1+ H (Negative) Urine Blood Large H (Negative) Urine RBC 59 H (0-5) /hpf Amorphous Sediment Occasional H (None) /hpf Urine Mucus Rare H (None) /hpf 05/22/24 05/22/24 05/23/24 Range/Units 21:38 23:27 06:22 WBC 14.5 H (3.8-10.6) k/uL RBC 3.72 L (4.30-5.90) m/uL Hgb 10.4 L (13.0-17.5) gm/dL Hct 31.7 L (39.0-53.0) % Neutrophils # 11.7 H (1.3-7.7) k/uL APTT 38.8 H (22.0-30.0) sec ABG pO2 76 L (83-108) mmHg Hemoglobin 10.7 L (13.0-17.5) gm/dL Sodium (137-145) mmol/L BUN (9-20) mg/dL Creatinine (0.66-1.25) mg/dL Glucose (74-99) mg/dL Calcium (8.4-10.2) mg/dL Troponin I (0.000-0.034) ng/mL Urine Protein (Negative) Urine Blood (Negative) Urine RBC (0-5) /hpf Amorphous Sediment (None) /hpf Urine Mucus (None) /hpf 05/23/24 05/23/24 Range/Units 06:22 12:36 WBC (3.8-10.6) k/uL RBC (4.30-5.90) m/uL Hgb (13.0-17.5) gm/dL Hct (39.0-53.0) % Neutrophils # (1.3-7.7) k/uL APTT 42.5 H (22.0-30.0) sec ABG pO2 (83-108) mmHg Hemoglobin (13.0-17.5) gm/dL Sodium 133 L (137-145) mmol/L BUN 35 H (9-20) mg/dL Creatinine 1.77 H (0.66-1.25) mg/dL Glucose 113 H (74-99) mg/dL Calcium 7.8 L (8.4-10.2) mg/dL Troponin I (0.000-0.034) ng/mL Urine Protein (Negative) Urine Blood (Negative) Urine RBC (0-5) /hpf Amorphous Sediment (None) /hpf Urine Mucus (None) /hpf Assessment and Plan Assessment: Impression: Acute hypoxic respiratory failure Acute on chronic systolic congestive heart failure Acute cardiogenic shock with chronic systolic congestive heart failure Acute kidney injury, either secondary to hypotension/ATN or could be cardiorenal Peripheral vessel occlusive disease and recent vascular surgery as noted above Hypotension secondary to acute cardiogenic shock, patient remains on pressors History of underlying coronary artery disease with previous CABG in 2017 History of bioprosthetic aortic valve replacement in 2017 Paroxysmal atrial fibrillation Abdominal aortic aneurysm Recommendation: Admit patient to ICU, patient is presently ER hold, waiting for ICU bed. Continue to hold blood pressure medications for now. Patient is off norepinephrine this morning Cardiology is addressing his heparin Renal functioning is improving, nephrology to see in consultation Patient may need further cardiac workup including cardiac catheterization and this to be addressed by cardiology Gnosis remains guarded but definite improvement today compared to yesterday Continue intermittent gentle diuresis Will continue to follow Prognosis is guarded Time with Patient: Less than 30
--- NOTE | 2024-05-23 14:15 | P.PN ---
Subjective Progress Note Date: 05/23/24 patient is a 73-year-old gentleman with past medical history significant for peripheral artery disease, CVA who presented the ER because of chest pain. Patient was admitted to the hospital in the beginning of the April at which time patient was found to have UTI and altered mental status secondary to UTI. Patient stated he was all right 3 days back when he started noticing chest pain. Chest pain was located all across the chest, states it starts in the back and goes to the front, intermittent, pressure-like, no aggravating or relieving factor associated chest pain. Patient stated that over the last 3 days chest pain has become more constant and severe and it feels like he is going to pass o ut. Chest pain was associate with shortness of breath and patient was diaphoretic. There was no complaint of orthopnea or PND. There is no complaint of swelling of feet. Because of chest pain, patient was brought to the ER Initial lab work done in the ER showed WBC 15.4, hemoglobin 10.5, platelet count 167, sodium 139, potassium 4, BUN 36, creatinine 2.21, glucose 119, troponin 29 albumin 2.5 EKG done in the ER showed heart rate of 66, no ST segment elevation, Q waves present in V3 V4 V5 V6 , no T-wave inversions seen. Chest x-ray done in the ER mild vascular congestion Patient admitted to internal medicine service 05/23. Patient seen and examined. Blood work done this morning showed WBC of 14.5, hemoglobin 10.4, platelet count 184, sodium 133, potassium 4, BUN 35, creatinine 1.77. States he feels much better. Breathing has improved REVIEW OF SYSTEMS: CONSTITUTIONAL: No fever, no malaise,. CARDIOVASCULAR: No chest pain, no palpitations, no syncope. PULMONARY: As mentioned above GASTROINTESTINAL: No diarrhea, no nausea, no vomiting, no abdominal pain. NEUROLOGICAL: No headaches, no weakness, PHYSICAL EXAMINATION: GENERAL: The patient is alert and oriented x3, ill looking HEENT: Pupils are round and equally reacting to light. EOMI. No scleral icterus. No conjunctival pallor. Normocephalic, atraumatic. No pharyngeal erythema. No thyromegaly. CARDIOVASCULAR: S1 and S2 present. No murmurs, rubs, or gallops. PULMONARY: Chest is clear to auscultation, no wheezing or crackles. ABDOMEN: Soft, nontender, nondistended, normoactive bowel sounds. No palpable organomegaly. MUSCULOSKELETAL: No joint swelling or deformity. EXTREMITIES: 1+ pitting edema lower extremities bilaterally NEUROLOGICAL: Gross neurological examination did not reveal any focal deficits. SKIN: No rashes. Assessment and plan NSTEMI Cardiogenic shock Acute hypoxemic respiratory failure Acute kidney injury Peripheral arterial disease status post femoral-femoral bypass and right and left common femoral artery thromboendarterectomy with patch angioplasty Known thrombosed left popliteal artery aneurysm History of bioprosthetic aortic valve replacement, 2017 Paroxysmal atrial fibrillation Abdominal aortic aneurysm, measuring 3.7 cm Moderate to severe pulmonary hypertension Monitor vital signs Monitor CBC Monitor CMP Continue telemetry monitoring Trend troponin I's and O's, daily weights Avoid nephrotoxic agents Continue pharmacy with heparin Continue Levophed, wean as tolerated Continue aspirin, Lipitor, Plavix Cardiology following, planning cardiac cath once off pressors Pulmonology following Labs and medication were reviewed.. Continue same treatment. Continue with symptomatic treatment. Resume home medication. Monitor labs and vitals. DVT and GI prophylaxis. Further recommendations as per clinical course of the patient Dictation was produced using [employer] dictation software. please excuse any grammatical, word or spelling errors. Objective - Vital Signs Vital signs: Vital Signs Temp 98.9 F 05/23/24 05:00 Pulse 79 05/23/24 13:00 Resp 20 05/23/24 13:00 BP 92/63 05/23/24 13:00 Pulse Ox 92 L 05/23/24 13:00 FiO2 Intake & Output 05/22/24 05/23/24 05/23/24 18:59 06:59 18:59 Intake Total 196.972 257.807 267.57 Output Total 1900 900 Balance 196.972 -1642.193 -632.43 Intake: Intake, IV Titration 196.972 257.807 267.57 Amount Heparin Sod,Pork in 0.45% 82.167 118.612 144.58 NaCl 25,000 unit In 0.45 % NaCl 1 250ml.bag @ 11. 023 UNITS/KG/HR 10 mls/hr IV .Q24H [facility] Rx#: [id number] Norepinephrine 4 mg In 114.805 139.195 Sodium Chloride 0.9% 250 ml @ 0.03 MCG/KG/MIN 10. 369 mls/hr IV .Q24H [facility] Rx#:[id number] Norepinephrine 4 mg In 122.99 Sodium Chloride 0.9% 250 ml @ 0.03 MCG/KG/MIN 10. 369 mls/hr IV .Q24H [facility] Rx#:[id number] Output: Urine 1900 900 - Labs CBC & Chem 7: 05/23/24 06:22 05/23/24 06:22 Labs: Abnormal Lab Results - Last 24 Hours (Table) 05/22/24 05/22/24 05/22/24 Range/Units 12:19 14:30 16:10 WBC (3.8-10.6) k/uL RBC (4.30-5.90) m/uL Hgb (13.0-17.5) gm/dL Hct (39.0-53.0) % Neutrophils # (1.3-7.7) k/uL APTT 35.7 H (22.0-30.0) sec ABG pO2 (83-108) mmHg Hemoglobin (13.0-17.5) gm/dL Sodium (137-145) mmol/L BUN (9-20) mg/dL Creatinine (0.66-1.25) mg/dL Glucose (74-99) mg/dL Calcium (8.4-10.2) mg/dL Troponin I 32.800 H* (0.000-0.034) ng/mL Urine Protein 1+ H (Negative) Urine Blood Large H (Negative) Urine RBC 59 H (0-5) /hpf Amorphous Sediment Occasional H (None) /hpf Urine Mucus Rare H (None) /hpf 05/22/24 05/22/24 05/23/24 Range/Units 21:38 23:27 06:22 WBC 14.5 H (3.8-10.6) k/uL RBC 3.72 L (4.30-5.90) m/uL Hgb 10.4 L (13.0-17.5) gm/dL Hct 31.7 L (39.0-53.0) % Neutrophils # 11.7 H (1.3-7.7) k/uL APTT 38.8 H (22.0-30.0) sec ABG pO2 76 L (83-108) mmHg Hemoglobin 10.7 L (13.0-17.5) gm/dL Sodium (137-145) mmol/L BUN (9-20) mg/dL Creatinine (0.66-1.25) mg/dL Glucose (74-99) mg/dL Calcium (8.4-10.2) mg/dL Troponin I (0.000-0.034) ng/mL Urine Protein (Negative) Urine Blood (Negative) Urine RBC (0-5) /hpf Amorphous Sediment (None) /hpf Urine Mucus (None) /hpf 05/23/24 05/23/24 Range/Units 06:22 12:36 WBC (3.8-10.6) k/uL RBC (4.30-5.90) m/uL Hgb (13.0-17.5) gm/dL Hct (39.0-53.0) % Neutrophils # (1.3-7.7) k/uL APTT 42.5 H (22.0-30.0) sec ABG pO2 (83-108) mmHg Hemoglobin (13.0-17.5) gm/dL Sodium 133 L (137-145) mmol/L BUN 35 H (9-20) mg/dL Creatinine 1.77 H (0.66-1.25) mg/dL Glucose 113 H (74-99) mg/dL Calcium 7.8 L (8.4-10.2) mg/dL Troponin I (0.000-0.034) ng/mL Urine Protein (Negative) Urine Blood (Negative) Urine RBC (0-5) /hpf Amorphous Sediment (None) /hpf Urine Mucus (None) /hpf
[2024-05-23 22:49] LABS: Chol/HDL Ratio 2.83 Ratio; LDL Cholesterol,Calculated 48.6 mg/dL (0.0-131.0); VLDL Calculation 19.28 mg/dL (5.00-40.00)
[2024-05-23] MEDS: ACETAMINOPHEN IV (For NPO) 1,000 MG in EMPTY BAG 1 BAG IVPB ONE (23:59)
[2024-05-24 10:18] LABS: African American GFR (CKD) 39 (>60 ml/min/1.73 sqM); Anion Gap 4 mmol/L; Blood Urea Nitrogen 39 mg/dL (9-20); Calcium 7.9 mg/dL (8.4-10.2); Carbon Dioxide 29 mmol/L (22-30); Chloride 100 mmol/L (98-107); Glucose 91 mg/dL (74-99); Non-African American GFR(CKD) 34 (>60 ml/min/1.73 sqM); Sodium 133 mmol/L (137-145)
--- NOTE | 2024-05-24 11:54 | P.PN ---
Subjective Progress Note Date: 05/24/24 PROGRESS NOTE The patient is a 73-year-old male with a known history of CAD status post CABG, permanent atrial fibrillation, status post aortic valve replacement for aortic stenosis, ischemic cardiomyopathy who presented with symptoms of chest discomfort and progressive dyspnea, was found to have an elevated troponin and his echocardiogram showed a severely impaired systolic function with severe mitral regurgitation and normal function of his bioprosthetic aortic valve. He has evidence of acute renal injury. He has severe peripheral vascular disease status post recent revascularization. He is feeling better today, he denies any chest discomfort. His breathing has improved. He denies any dizziness or palpitations. He denies any nausea or vomiting. He continues to be in atrial fibrillation. His CABG workup is not available to me, he has been followed by mortising machine operator at [facility] in the past. Medications: Aspirin, Plavix 75 mg daily, IV heparin, Xanax on a as needed basis, Lipitor 80 mg daily. As an outpatient patient was on Eliquis, Cozaar and amlodipine PHYSICAL EXAMINATION: Blood pressure 93/60 heart rate 70 LUNGS: Few crackles at the bases HEART: Irregular rate and rhythm, S1, S2. No S3. Systolic ejection murmur at the base and a holosystolic murmur at the apex ABDOMEN: Soft, nontender, no organomegaly EXTREMETIES: No edema, decreased pulses LAB: Hemoglobin yesterday 10.4. Creatinine 1.9, BUN 39, potassium 3.0. NT proBNP on admission 24,400 IMPRESSION: 1. Acute myocardial infarction with evidence of CHF and impaired systolic function in a patient with known history of CABG and aortic valve replacement 2. Acute kidney injury 3. Persistent atrial fibrillation 4. Severe mitral regurgitation 5. Hyperlipidemia 6. Peripheral vascular disease 7. Status post CABG and AVR PLAN: 1. Hold on the cardiac catheterization today 2. Follow renal functions 3. Obtain the records for his prior CABG 4. Depending on his progress further recommendations will be made, prognosis is guarded. Objective - Vital Signs Vital signs: Vital Signs Temp 97.9 F 05/24/24 08:00 Pulse 75 05/24/24 08:00 Resp 18 05/24/24 08:00 BP 80/42 05/24/24 08:00 Pulse Ox 97 05/24/24 08:00 FiO2 Intake & Output 05/23/24 05/24/24 05/24/24 18:59 06:59 18:59 Intake Total 267.57 105.42 47.84 Output Total 1700 500 Balance -1432.43 -394.58 47.84 Weight 91.1 kg Intake: Intake, IV Titration 267.57 105.42 47.84 Amount Heparin Sod,Pork in 0.45% 144.58 105.42 47.84 NaCl 25,000 unit In 0.45 % NaCl 1 250ml.bag @ 11. 023 UNITS/KG/HR 10 mls/hr IV .Q24H [facility] Rx#: [id number] Norepinephrine 4 mg In 122.99 Sodium Chloride 0.9% 250 ml @ 0.03 MCG/KG/MIN 10. 369 mls/hr IV .Q24H [facility] Rx#:[id number] Output: Urine 1700 500 Other: Voiding Method Urinal - Labs CBC & Chem 7: 05/23/24 06:22 05/24/24 09:03 Labs: Abnormal Lab Results - Last 24 Hours (Table) 05/23/24 05/23/24 05/24/24 Range/Units 06:22 12:36 09:03 APTT 42.5 H 43.6 H (22.0-30.0) sec Sodium (137-145) mmol/L Potassium (3.5-5.1) mmol/L BUN (9-20) mg/dL Creatinine (0.66-1.25) mg/dL Calcium (8.4-10.2) mg/dL HDL Cholesterol 37.10 L (40.00-60.00) mg/dL 05/24/24 Range/Units 09:03 APTT (22.0-30.0) sec Sodium 133 L (137-145) mmol/L Potassium 3.0 L (3.5-5.1) mmol/L BUN 39 H (9-20) mg/dL Creatinine 1.90 H (0.66-1.25) mg/dL Calcium 7.9 L (8.4-10.2) mg/dL HDL Cholesterol (40.00-60.00) mg/dL Microbiology - Last 24 Hours (Table) 05/22/24 12:19 Blood Culture - Preliminary Blood
--- NOTE | 2024-05-24 12:47 | P.PN ---
Subjective Progress Note Date: 05/24/24 Patient seen in follow-up for SHAVON. Breathing continues to improve. Feels very weak at this time. Vital signs are stable. General: No acute distress. HEENT: Head exam is unremarkable. LUNGS: Diminished breath sounds HEART: Rate and Rhythm are regular. ABDOMEN: Nontender. EXTREMITITES: trace edema. Objective - Vital Signs Vital signs: Vital Signs Temp 97.9 F 05/24/24 08:00 Pulse 75 05/24/24 08:00 Resp 18 05/24/24 08:00 BP 80/42 05/24/24 08:00 Pulse Ox 97 05/24/24 08:00 FiO2 Intake & Output 05/23/24 05/24/24 05/24/24 18:59 06:59 18:59 Intake Total 267.57 105.42 47.84 Output Total 1700 500 Balance -1432.43 -394.58 47.84 Weight 91.1 kg Intake: Intake, IV Titration 267.57 105.42 47.84 Amount Heparin Sod,Pork in 0.45% 144.58 105.42 47.84 NaCl 25,000 unit In 0.45 % NaCl 1 250ml.bag @ 11. 023 UNITS/KG/HR 10 mls/hr IV .Q24H [facility] Rx#: [id number] Norepinephrine 4 mg In 122.99 Sodium Chloride 0.9% 250 ml @ 0.03 MCG/KG/MIN 10. 369 mls/hr IV .Q24H [facility] Rx#:[id number] Output: Urine 1700 500 Other: Voiding Method Urinal - Labs CBC & Chem 7: 05/23/24 06:22 05/24/24 09:03 Labs: Abnormal Lab Results - Last 24 Hours (Table) 05/23/24 05/23/24 05/24/24 Range/Units 06:22 12:36 09:03 APTT 42.5 H 43.6 H (22.0-30.0) sec Sodium (137-145) mmol/L Potassium (3.5-5.1) mmol/L BUN (9-20) mg/dL Creatinine (0.66-1.25) mg/dL Calcium (8.4-10.2) mg/dL HDL Cholesterol 37.10 L (40.00-60.00) mg/dL 05/24/24 Range/Units 09:03 APTT (22.0-30.0) sec Sodium 133 L (137-145) mmol/L Potassium 3.0 L (3.5-5.1) mmol/L BUN 39 H (9-20) mg/dL Creatinine 1.90 H (0.66-1.25) mg/dL Calcium 7.9 L (8.4-10.2) mg/dL HDL Cholesterol (40.00-60.00) mg/dL Microbiology - Last 24 Hours (Table) 05/22/24 12:19 Blood Culture - Preliminary Blood Assessment and Plan Assessment: 1. Non-oliguric SHAVON 2/2 ATN. Due to hypotension/shock. Baseline creatinine 0.9, presented 2.2, improved to 1.7 now 1.9 today. UA showed blood and RBC. Renal US showed no hydronephrosis. 2. Hyponatremia, suspect hypervolemic. Sodium mild 129 3. NSTEMI 4. Cardiogenic shock on Levophed. 5. Hypoxic respiratory failure 6. Hypokalemia due to post-ATN diuresis and Lasix Plan: Off pressors Renal function slightly worse likely related to low BP and IV Lasix Strict I/O's, daily BMP Continue supportive care Replace potassium Urine output remains good
[2024-05-24] MEDS: POTASSIUM CHLORIDE ER 20 MEQ TAB.ER PO SCH (12:57)
--- NOTE | 2024-05-24 13:43 | P.PN ---
Subjective Progress Note Date: 05/24/24 patient is a 73-year-old gentleman with past medical history significant for peripheral artery disease, CVA who presented the ER because of chest pain. Patient was admitted to the hospital in the beginning of the April at which time patient was found to have UTI and altered mental status secondary to UTI. Patient stated he was all right 3 days back when he started noticing chest pain. Chest pain was located all across the chest, states it starts in the back and goes to the front, intermittent, pressure-like, no aggravating or relieving factor associated chest pain. Patient stated that over the last 3 days chest pain has become more constant and severe and it feels like he is going to pass o ut. Chest pain was associate with shortness of breath and patient was diaphoretic. There was no complaint of orthopnea or PND. There is no complaint of swelling of feet. Because of chest pain, patient was brought to the ER Initial lab work done in the ER showed WBC 15.4, hemoglobin 10.5, platelet count 167, sodium 139, potassium 4, BUN 36, creatinine 2.21, glucose 119, troponin 29 albumin 2.5 EKG done in the ER showed heart rate of 66, no ST segment elevation, Q waves present in V3 V4 V5 V6 , no T-wave inversions seen. Chest x-ray done in the ER mild vascular congestion Patient admitted to internal medicine service 05/23. Patient seen and examined. Blood work done this morning showed WBC of 14.5, hemoglobin 10.4, platelet count 184, sodium 133, potassium 4, BUN 35, creatinine 1.77. States he feels much better. Breathing has improved 05/24. Patient seen and examined. Currently on 10 L of oxygen. Complaining of shortness of breath on exertion REVIEW OF SYSTEMS: CONSTITUTIONAL: No fever, no malaise,. CARDIOVASCULAR: No chest pain, no palpitations, no syncope. PULMONARY: As mentioned above GASTROINTESTINAL: No diarrhea, no nausea, no vomiting, no abdominal pain. NEUROLOGICAL: No headaches, no weakness, PHYSICAL EXAMINATION: GENERAL: The patient is alert and oriented x3, ill looking HEENT: Pupils are round and equally reacting to light. EOMI. No scleral icterus. No conjunctival pallor. Normocephalic, atraumatic. No pharyngeal erythema. No thyromegaly. CARDIOVASCULAR: S1 and S2 present. No murmurs, rubs, or gallops. PULMONARY: Coarse breath sounds bilaterally, no wheezing or crackles. ABDOMEN: Soft, nontender, nondistended, normoactive bowel sounds. No palpable organomegaly. MUSCULOSKELETAL: No joint swelling or deformity. EXTREMITIES: 1+ pitting edema lower extremities bilaterally NEUROLOGICAL: Gross neurological examination did not reveal any focal deficits. SKIN: No rashes. Assessment and plan NSTEMI Cardiogenic shock Acute hypoxemic respiratory failure Acute kidney injury Peripheral arterial disease status post femoral-femoral bypass and right and left common femoral artery thromboendarterectomy with patch angioplasty Known thrombosed left popliteal artery aneurysm History of bioprosthetic aortic valve replacement, 2017 Paroxysmal atrial fibrillation Abdominal aortic aneurysm, measuring 3.7 cm Moderate to severe pulmonary hypertension Monitor vital signs Monitor CBC Monitor CMP Continue telemetry monitoring Trend troponin I's and O's, daily weights Avoid nephrotoxic agents Continue pharmacy with heparin Continue aspirin, Lipitor, Plavix Cardiology following, planning cardiac cath once renal functions and pulmonary status stabilizes Pulmonology following Nephrology following Labs and medication were reviewed.. Continue same treatment. Continue with symptomatic treatment. Resume home medication. Monitor labs and vitals. DVT and GI prophylaxis. Further recommendations as per clinical course of the patient Dictation was produced using [employer] dictation software. please excuse any grammatical, word or spelling errors. Objective - Vital Signs Vital signs: Vital Signs Temp 97.9 F 05/24/24 08:00 Pulse 75 05/24/24 08:00 Resp 18 05/24/24 08:00 BP 80/42 05/24/24 08:00 Pulse Ox 97 05/24/24 08:00 FiO2 Intake & Output 05/23/24 05/24/24 05/24/24 18:59 06:59 18:59 Intake Total 267.57 105.42 Output Total 1700 500 Balance -1432.43 -394.58 Weight 91.1 kg Intake: Intake, IV Titration 267.57 105.42 Amount Heparin Sod,Pork in 0.45% 144.58 105.42 NaCl 25,000 unit In 0.45 % NaCl 1 250ml.bag @ 11. 023 UNITS/KG/HR 10 mls/hr IV .Q24H [facility] Rx#: [id number] Norepinephrine 4 mg In 122.99 Sodium Chloride 0.9% 250 ml @ 0.03 MCG/KG/MIN 10. 369 mls/hr IV .Q24H [facility] Rx#:[id number] Output: Urine 1700 500 Other: Voiding Method Urinal - Labs CBC & Chem 7: 05/23/24 06:22 05/24/24 09:03 Labs: Abnormal Lab Results - Last 24 Hours (Table) 05/23/24 05/23/24 05/24/24 Range/Units 06:22 12:36 09:03 APTT 42.5 H 43.6 H (22.0-30.0) sec HDL Cholesterol 37.10 L (40.00-60.00) mg/dL Microbiology - Last 24 Hours (Table) 05/22/24 12:19 Blood Culture - Preliminary Blood
--- NOTE | 2024-05-24 15:30 | P.PN ---
Subjective Progress Note Date: 05/24/24 Principal diagnosis: Non-ST segment elevation myocardial infarction. This is a 73-year-old white male with history of significant cardiac history including history of coronary artery disease, previous CABG, and previous aortic valve replacement, history of ischemic cardiomyopathy and LV dysfunction, chronic atrial fibrillation, history of aortic stenosis and previous aortic va lve replacement, peripheral vessel occlusive disease, and recent right common femoral thromboendarterectomy with patch angioplasty, left common femoral thromboendarterectomy, femoral to femoral bypass utilizing 8 mm PTFE bypass graft this was done by Dr. Antony on 04/04/2024 patient presented this time to the hospital with mostly complaining of chest pain, has been noticing this pain for the last 3 days, describes the pain across the chest, and radiates to the back associated with shortness of breath, diaphoresis. Patient was seen in the ER, and he was already seen by multiple consultants including cardiology, patient was noted to have Q waves in V3 V4 V5 V6, and he was also noted to have abnormal troponin level. Patient was also noted to be hypotensive requiring norepinephrine and the patient will need to be admitted to the ICU, hence this consult was initiated. Based on the presentation patient seems to be having cardiogenic shock with hypotension requiring vasopressor support. In addition the patient noted to have acute kidney injury and he was seen by nephrology on consultation. No cough, no fever, no chills, no hemoptysis, chest x-ray showed minimal pulmonary vascular congestion, no evidence of infiltrate/pneumonia labs were reviewed patient had WBC count of 15.4 hemoglobin 10.5 sodium of 129 potassium 4.0 BUN is 36 creatinine 2.21, troponin was 29,000's and BNP level was 24 ,400. Patient was seen by cardiology today while in the ER, and the recommendation was to get a 2D echocardiogram, aspirin, atorvastatin, hold losartan and amlodipine for low blood pressure, continue heparin and presently Eliquis is on hold, norepinephrine to be titrated to mean of above 60. Cardiology is considering cardiac catheterization on this patient once he is medically stable. Patient was seen today on 05/23/2024, remains in the ER as ER hold, patient waiting for a bed to go to ICU. His presentation was a presentation of acute non-ST elevation myocardial infarction, cardiogenic shock, and acute hypoxic respiratory failure, patient required norepinephrine for his hypotension he also required diuretics for his pulmonary edema, his ejection fraction was noted to be about 30 to 35%. Today the patient is feeling better, breathing easier, he is now on 6 L nasal cannula with O2 saturation 93%, he is off norepinephrine, still receiving Lasix he received a dose of Lasix again today, I gave him Lasix last night as I was notified because of his shortness of breath, and chest x-ray was showing some evidence of mild pulmonary edema. WBC count today is 14.5 hemoglobin 10.4, PTT is 42.5, electrolytes are normal, creatinine is 1.77, down from 2.21 on admission. Chest x-ray continues to show mild interstitial edema, strongly doubt pneumonia Progress note dated May 24, 2024. 73-year-old male admitted with a diagnosis of non-ST segment elevation myocardial infarction, congestive heart failure, and hypoxemia. The patient is seen today in room 368. The patient continues on nasal O2 at 9 L. He is on IV heparin. The patient appears in no distress. Current labs include a PTT of 43.6, sodium 133, potassium 3, chlorides 100, CO2 29, BUN 39, creatinine 1.90. Calcium is 7.9. Chest x-ray from May 23, reveals improved aeration. Objective - Vital Signs Vital signs: Vital Signs Temp 97.9 F 05/24/24 08:00 Pulse 75 05/24/24 08:00 Resp 18 05/24/24 08:00 BP 80/42 05/24/24 08:00 Pulse Ox 97 05/24/24 08:00 FiO2 Intake & Output 05/23/24 05/24/24 05/24/24 18:59 06:59 18:59 Intake Total 267.57 105.42 47.84 Output Total 1700 500 Balance -1432.43 -394.58 47.84 Weight 91.1 kg Intake: Intake, IV Titration 267.57 105.42 47.84 Amount Heparin Sod,Pork in 0.45% 144.58 105.42 47.84 NaCl 25,000 unit In 0.45 % NaCl 1 250ml.bag @ 11. 023 UNITS/KG/HR 10 mls/hr IV .Q24H [facility] Rx#: [id number] Norepinephrine 4 mg In 122.99 Sodium Chloride 0.9% 250 ml @ 0.03 MCG/KG/MIN 10. 369 mls/hr IV .Q24H [facility] Rx#:[id number] Oral 0 Output: Urine 1700 500 Other: Voiding Method Urinal - Exam No acute distress, oriented 3. Currently on 9 L high flow nasal O2. HEENT examination is grossly unremarkable. Mucous membranes are moist. No oral lesions. Neck supple. Full range of motion. No adenopathy thyromegaly or neck vein distention. Cardiovascular examination reveals regular rhythm rate. S1-S2 normal. No S3 or S4. A soft systolic murmur is noted. Lungs reveal bibasilar crackles. Breath sounds are equal. No rhonchi or wheezes noted. Abdomen soft bowel sounds are heard. No masses or tenderness. Extremities are intact. No cyanosis clubbing or edema. Skin is without rash or lesion. Neurologic examination is brief but nonfocal. - Labs CBC & Chem 7: 05/23/24 06:22 05/24/24 09:03 Labs: Abnormal Lab Results - Last 24 Hours (Table) 05/23/24 05/24/24 05/24/24 Range/Units 06:22 09:03 09:03 APTT 43.6 H (22.0-30.0) sec Sodium 133 L (137-145) mmol/L Potassium 3.0 L (3.5-5.1) mmol/L BUN 39 H (9-20) mg/dL Creatinine 1.90 H (0.66-1.25) mg/dL Calcium 7.9 L (8.4-10.2) mg/dL HDL Cholesterol 37.10 L (40.00-60.00) mg/dL Microbiology - Last 24 Hours (Table) 05/22/24 12:19 Blood Culture - Preliminary Blood Assessment and Plan Assessment: Acute hypoxemic respiratory failure secondary to acute on chronic systolic congestive heart failure. Acute cardiogenic shock with chronic systolic CHF. Acute kidney injury secondary to hypotension, and ATN. Peripheral vessel occlusive disease. Hypotension, secondary to acute cardiogenic shock, resolved. History of CAD with previous CABG, 2017. History of bioprosthetic aortic valve replacement, 2017. Paroxysmal atrial fibrillation. Abdominal aortic aneurysm. Plan: Plan dated May 24, 2024. The patient initially was to be admitted to the intensive care unit, because of hypotension, and the need for vasopressors. The patient apparently came off the vasopressors, and was discharged to the cardiology floor instead. The patient is seen today in room 368. He continues on 9 L nasal cannula. He looks comfortable. He is not complaining of any difficulty or respiratory distress. He does continue with IV heparin. Labs, x-rays, and medications are reviewed. The patient is a DO NOT RESUSCITATE patient. We will continue to follow and make recommendations along the way. Time with Patient: Less than 30
[2024-05-25 01:32] LABS: Glucose,Whole Blood 163 mg/dL (70-110)
[2024-05-25] MEDS: FUROSEMIDE 10 MG/ML 10 ML VIAL IV STA (02:25)
--- NOTE | 2024-05-25 03:07 | XR ---
EXAM: XR Chest, 1 View CLINICAL HISTORY: ITS.REASON XR Reason: increased work of breathing TECHNIQUE: Frontal view of the chest. COMPARISON: No relevant prior studies available. IMPRESSION: Cardiomegaly. Mild vascular congestion
[2024-05-25 04:47] VITALS: RESP 18
[2024-05-25 06:48] LABS: Basophils % (A) 0 %; Eosinophils % (A) 0 %; HCT 24.6 % (39.0-53.0); Lymphocytes # (A) 1.5 k/uL (1.0-4.8); Lymphocytes % (A) 11 %; MCH 28.6 pg (25.0-35.0); MCHC 33.9 g/dL (31.0-37.0); MCV 84.4 fL (80.0-100.0); Mean Platelet Volume 7.9; Monocytes # (A) 0.7 k/uL (0-1.0); Monocytes % (A) 5 %; Neutrophils # (A) 10.5 k/uL (1.3-7.7); Neutrophils % (A) 82 %; Platelet Count 182 k/uL (150-450); RBC 2.92 m/uL (4.30-5.90); RDW 14.6 % (11.5-15.5); WBC 12.9 k/uL (3.8-10.6)
[2024-05-25 06:50] LABS: HGB 8.3 gm/dL (13.0-17.5)
[2024-05-25 07:14] LABS: ALT 27 U/L (4-49); AST 48 U/L (17-59); African American GFR (CKD) 35 (>60 ml/min/1.73 sqM); Albumin 2.4 g/dL (3.5-5.0); Alkaline Phosphatase 65 U/L (38-126); Anion Gap 5 mmol/L; Blood Urea Nitrogen 36 mg/dL (9-20); Calcium 7.7 mg/dL (8.4-10.2); Carbon Dioxide 27 mmol/L (22-30); Chloride 100 mmol/L (98-107); Glucose 116 mg/dL (74-99); Non-African American GFR(CKD) 30 (>60 ml/min/1.73 sqM); Potassium 3.9 mmol/L (3.5-5.1); Sodium 132 mmol/L (137-145); Total Bilirubin 1.2 mg/dL (0.2-1.3); Total Protein 5.3 g/dL (6.3-8.2)
--- NOTE | 2024-05-25 11:09 | P.PN ---
Subjective Progress Note Date: 05/25/24 PROGRESS NOTE The patient is a 73-year-old male with a known history of CAD status post CABG, permanent atrial fibrillation, status post aortic valve replacement for aortic stenosis, ischemic cardiomyopathy who presented with symptoms of chest discomfort and progressive dyspnea, was found to have an elevated troponin and his echocardiogram showed a severely impaired systolic function with severe mitral regurgitation and normal function of his bioprosthetic aortic valve. He has evidence of acute renal injury. He has severe peripheral vascular disease status post recent revascularization. He is feeling better today, he denies any chest discomfort. His breathing has improved. He denies any dizziness or palpitations. He denies any nausea or vomiting. He continues to be in atrial fibrillation. His CABG workup is not available to me, he has been followed by supervisor heat treating at [facility] in the past. May 25: The patient became acutely dyspneic this morning, requiring BiPAP, better at this time. He denies any any chest discomfort at this time, he had mild discomfort earlier. He denies any dizziness. He has a drop in his hemoglobin and worsening of his renal functions. I discussed with him and his family the guarded prognosis, I discussed with him that if we want to be aggressive then he may require coronary angiography and possible placement of a Impella through axillary approach because of the severe PAD. Unfortunately I do not have prior workup related to his prior surgical intervention and echocardiogram performed at [facility]. In view of his overall status I have recommended to transfer to tertiary care center to undergo further evaluation and treatment. He and his family are in agreement. Medications: Aspirin, Plavix 75 mg daily, IV heparin, Xanax on a as needed basis, Lipitor 80 mg daily. PHYSICAL EXAMINATION: Blood pressure 107/70 heart rate 70 LUNGS: Few crackles at the bases HEART: Irregular rate and rhythm, S1, S2. No S3. Systolic ejection murmur at the base and a holosystolic murmur at the apex ABDOMEN: Soft, nontender, no organomegaly EXTREMETIES: No edema, decreased pulses LAB: Hemoglobin 8.3. Creatinine 2.08, BUN 36, potassium 3.9. NT proBNP on admission 45,400 IMPRESSION: 1. Acute myocardial infarction with evidence of CHF and impaired systolic function in a patient with known history of CABG and aortic valve replacement. Probable acute graft closure. 2. Acute kidney injury, unknown duration 3. Persistent atrial fibrillation 4. Severe mitral regurgitation, unknown duration 5. Hyperlipidemia 6. Peripheral vascular disease 7. Status post CABG and AVR 8. Anemia PLAN: 1. I discussed with the patient and his family the options including transfer to [facility] where he is seen on a regular basis and if needed proceed with coronary angiography with possible mechanical support. He is in agreement to proceed 2. Continue supportive care at this point 3. Prognosis is guarded Objective - Vital Signs Vital signs: Vital Signs Temp 98.3 F 05/25/24 08:00 Pulse 70 05/25/24 08:00 Resp 18 05/25/24 08:00 BP 107/69 05/25/24 08:00 Pulse Ox 100 05/25/24 08:00 FiO2 70 05/25/24 08:00 Intake & Output 05/24/24 05/25/24 05/25/24 18:59 06:59 18:59 Intake Total 247.84 139.711 153.259 Output Total 180 Balance 247.84 -40.289 153.259 Weight 94 kg Intake: Intake, IV Titration 47.84 139.711 153.259 Amount Heparin Sod,Pork in 0.45% 47.84 139.711 153.259 NaCl 25,000 unit In 0.45 % NaCl 1 250ml.bag @ 11. 023 UNITS/KG/HR 10 mls/hr IV .Q24H [facility] Rx#: [id number] Oral 200 Output: Urine 180 Other: Voiding Method Urinal - Labs CBC & Chem 7: 05/25/24 06:29 05/25/24 06:29 Labs: Abnormal Lab Results - Last 24 Hours (Table) 05/25/24 05/25/24 05/25/24 Range/Units 01:31 06:29 06:29 WBC 12.9 H (3.8-10.6) k/uL RBC 2.92 L (4.30-5.90) m/uL Hgb 8.3 L D (13.0-17.5) gm/dL Hct 24.6 L (39.0-53.0) % Neutrophils # 10.5 H (1.3-7.7) k/uL APTT (22.0-30.0) sec Sodium 132 L (137-145) mmol/L BUN 36 H (9-20) mg/dL Creatinine 2.08 H (0.66-1.25) mg/dL Glucose 116 H (74-99) mg/dL POC Glucose (mg/dL) 163 H (70-110) mg/dL Calcium 7.7 L (8.4-10.2) mg/dL Total Protein 5.3 L (6.3-8.2) g/dL Albumin 2.4 L (3.5-5.0) g/dL 05/25/24 Range/Units 06:29 WBC (3.8-10.6) k/uL RBC (4.30-5.90) m/uL Hgb (13.0-17.5) gm/dL Hct (39.0-53.0) % Neutrophils # (1.3-7.7) k/uL APTT 30.3 H (22.0-30.0) sec Sodium (137-145) mmol/L BUN (9-20) mg/dL Creatinine (0.66-1.25) mg/dL Glucose (74-99) mg/dL POC Glucose (mg/dL) (70-110) mg/dL Calcium (8.4-10.2) mg/dL Total Protein (6.3-8.2) g/dL Albumin (3.5-5.0) g/dL Microbiology - Last 24 Hours (Table) 05/22/24 12:19 Blood Culture - Preliminary Blood
--- NOTE | 2024-05-25 12:20 | P.PN ---
Subjective patient is seen for follow-up for acute kidney injury. Complaint of worsening shortness of breath early this morning and is currently maintained on BiPAP. There are plans for transfer to [facility] for continued cardiology care. serum creatinine at 2.0 today which is fairly stable from yesterday. 24 hour urine output at 2.2 L. status post IV Lasix 60 mg early this morning. Chest x-ray shows pulmonary vascular congestion. Objective - Vital Signs Vital signs: Vital Signs Temp 98.3 F 05/25/24 08:00 Pulse 70 05/25/24 08:00 Resp 18 05/25/24 08:00 BP 107/69 05/25/24 08:00 Pulse Ox 92 L 05/25/24 08:55 FiO2 70 05/25/24 08:00 Intake & Output 05/24/24 05/25/24 05/25/24 18:59 06:59 18:59 Intake Total 247.84 139.711 153.259 Output Total 180 Balance 247.84 -40.289 153.259 Weight 94 kg Intake: Intake, IV Titration 47.84 139.711 153.259 Amount Heparin Sod,Pork in 0.45% 47.84 139.711 153.259 NaCl 25,000 unit In 0.45 % NaCl 1 250ml.bag @ 11. 023 UNITS/KG/HR 10 mls/hr IV .Q24H [facility] Rx#: [id number] Oral 200 Output: Urine 180 Other: Voiding Method Urinal - Exam patient is awake, comfortable, no acute distress. Currently maintained on BiPAP. Examination of the heart S1 and S2 Examination the lungs decreased breath sounds at the bases Abdomen is soft nontender Examination of lower extremity shows edema 1+ bilaterally [employer]ET[employer]ADER exam grossly intact - Labs CBC & Chem 7: 05/25/24 06:29 05/25/24 06:29 Labs: Abnormal Lab Results - Last 24 Hours (Table) 05/25/24 05/25/24 05/25/24 Range/Units 01: 06: 06:29 WBC 12.9 H (3.8-10.6) k/uL RBC 2.92 L (4.30-5.90) m/uL Hgb 8.3 L D (13.0-17.5) gm/dL Hct 24.6 L (39.0-53.0) % Neutrophils # 10.5 H (1.3-7.7) k/uL APTT (22.0-30.0) sec Sodium 132 L (137-145) mmol/L BUN 36 H (9-20) mg/dL Creatinine 2.08 H (0.66-1.25) mg/dL Glucose 116 H (74-99) mg/dL POC Glucose (mg/dL) 163 H (70-110) mg/dL Calcium 7.7 L (8.4-10.2) mg/dL Total Protein 5.3 L (6.3-8.2) g/dL Albumin 2.4 L (3.5-5.0) g/dL 05/25/24 Range/Units 06:29 WBC (3.8-10.6) k/uL RBC (4.30-5.90) m/uL Hgb (13.0-17.5) gm/dL Hct (39.0-53.0) % Neutrophils # (1.3-7.7) k/uL APTT 30.3 H (22.0-30.0) sec Sodium (137-145) mmol/L BUN (9-20) mg/dL Creatinine (0.66-1.25) mg/dL Glucose (74-99) mg/dL POC Glucose (mg/dL) (70-110) mg/dL Calcium (8.4-10.2) mg/dL Total Protein (6.3-8.2) g/dL Albumin (3.5-5.0) g/dL Microbiology - Last 24 Hours (Table) 05/22/24 12:19 Blood Culture - Preliminary Blood Assessment and Plan Assessment: 1. Non-oliguric SHAVON 2/2 ATN. Due to hypotension/shock. Baseline creatinine 0.9, presented 2.2, improved to 1.7 and slowly increased back to 2.0 today. UA showed blood and RBC. Renal US showed no hydronephrosis. Currently being diuresed for volume overload. 2. Hyponatremia, suspect hypervolemic. Sodium mild 129 3. NSTEMI 4. Cardiogenic shock on Levophed. 5. Hypoxic respiratory failure 6. Hypokalemia due to post-ATN diuresis and Lasix Plan: repeat IV Lasix this afternoon. repeat labs in a.m. Accurate I's and O's Repeat hemoglobin this afternoon as significant drop in hemoglobin noted this morning.
--- NOTE | 2024-05-25 14:57 | P.DS ---
Providers Date of admission: 05/22/24 05:37 Expected date of discharge: 05/25/24 Attending physician: Joshua Ramirez Consults: 05/22/24 05:22 Consult Physician Urgent Consulting Provider: Vance Tirado Consult Reason/Comments: NSTEMI Do you want consulting provider notified?: Already Contacted 05/22/24 09:09 Consult Physician Routine Consulting Provider: Zaid Nava Consult Reason/Comments: SHAVON, NSTEMI, needs eventual cath Do you want consulting provider notified?: Yes 05/22/24 09:41 Consult Physician Routine Consulting Provider: Bria Lopez Consult Reason/Comments: Hypotension, NSTEMI, respiratory failure Do you want consulting provider notified?: Yes [facility]: Discharge diagnoses; NSTEMI Cardiogenic shock Acute hypoxemic respiratory failure Acute kidney injury Peripheral arterial disease status post femoral-femoral bypass and right and left common femoral artery thromboendarterectomy with patch angioplasty Known thrombosed left popliteal artery aneurysm History of bioprosthetic aortic valve replacement, 2017 Paroxysmal atrial fibrillation Abdominal aortic aneurysm, measuring 3.7 cm Moderate to severe pulmonary hypertension Hospital course; patient is a 73-year-old gentleman with past medical history significant for peripheral artery disease, CVA who presented the ER because of chest pain. Patient was admitted to the hospital in the beginning of the April at which time patient was found to have UTI and altered mental status secondary to UTI. Patient stated he was all right 3 days back when he started noticing chest pain. Chest pain was located all across the chest, states it starts in the back and goes to the front, intermittent, pressure-like, no aggravating or relieving factor associated chest pain. Patient stated that over the last 3 days chest pain has become more constant and severe and it feels like he is going to pass out. Chest pain was associate with shortness of breath and patient was diaphoretic. There was no complaint of orthopnea or PND. There is no complaint of swelling of feet. Because of chest pain, patient was brought to the ER Initial lab work done in the ER showed WBC 15.4, hemoglobin 10.5, platelet count 167, sodium 139, potassium 4, BUN 36, creatinine 2.21, glucose 119, troponin 29 albumin 2.5 EKG done in the ER showed heart rate of 66, no ST segment elevation, Q waves present in V3 V4 V5 V6 , no T-wave inversions seen. Chest x-ray done in the ER mild vascular congestion Patient admitted to internal medicine service 05/23. Patient seen and examined. Blood work done this morning showed WBC of 14.5, hemoglobin 10.4, platelet count 184, sodium 133, potassium 4, BUN 35, creatinine 1.77. States he feels much better. Breathing has improved 05/24. Patient seen and examined. Currently on 10 L of oxygen. Complaining of shortness of breath on exertion 05/25. Patient seen and examined. 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 Transfer line contacted, patient has been accepted, being discharged in stable condition PHYSICAL EXAMINATION: GENERAL: The patient is alert and oriented x3, ill looking HEENT: Pupils are round and equally reacting to light. EOMI. No scleral icterus. No conjunctival pallor. Normocephalic, atraumatic. No pharyngeal erythema. No thyromegaly. CARDIOVASCULAR: S1 and S2 present. No murmurs, rubs, or gallops. PULMONARY: Coarse breath sounds bilaterally, no wheezing or crackles. ABDOMEN: Soft, nontender, nondistended, normoactive bowel sounds. No palpable organomegaly. MUSCULOSKELETAL: No joint swelling or deformity. EXTREMITIES: 1+ pitting edema lower extremities bilaterally NEUROLOGICAL: Gross neurological examination did not reveal any focal deficits. SKIN: No rashes. Dictation was produced using [employer] dictation software. please excuse any grammatical, word or spelling errors. Patient Condition at Discharge: Fair Plan - Discharge Summary Discharge Rx Participant: No New Discharge Prescriptions: New Atorvastatin [Lipitor] 80 mg PO HS tab Clopidogrel [Plavix] 75 mg PO DAILY tab Continue Apixaban [Eliquis] 5 mg PO BID ALPRAZolam [Xanax] 0.5 mg PO BID PRN PRN Reason: Anxiety amLODIPine [Norvasc] 10 mg PO DAILY Docusate [Colace] 100 mg PO HS Rosuvastatin Calcium [Crestor] 40 mg PO HS Aspirin 81 mg PO DAILY #30 tab Ferrous Sulfate [Iron (65 MG Elemental)] 325 mg PO DAILY HYDROcodone/APAP 10-325MG [Warren 10-325] 1 tab PO TID PRN PRN Reason: Pain Discontinued Losartan [Cozaar] 50 mg PO HS Levofloxacin [Levaquin] 500 mg PO DAILY Discharge Medication List ALPRAZolam [Xanax] 0.5 mg PO BID PRN 04/03/24 [History] Apixaban [Eliquis] 5 mg PO BID 04/03/24 [History] Rosuvastatin Calcium [Crestor] 40 mg PO HS 04/03/24 [History] Aspirin 81 mg PO DAILY #30 tab 04/06/24 [Rx] amLODIPine [Norvasc] 10 mg PO DAILY 05/06/24 [History] Docusate [Colace] 100 mg PO HS 05/22/24 [History] Ferrous Sulfate [Iron (65 MG Elemental)] 325 mg PO DAILY 05/22/24 [History] HYDROcodone/APAP 10-325MG [Warren 10-325] 1 tab PO TID PRN 05/22/24 [History] Atorvastatin [Lipitor] 80 mg PO HS tab 05/25/24 [Rx] Clopidogrel [Plavix] 75 mg PO DAILY tab 05/25/24 [Rx] Follow up Appointment(s)/Referral(s): Martin Flores DO [Primary Care Provider] - 1-2 days Discharge Disposition: OTHER INSTITUTION NOT DEFINED
--- NOTE | 2024-05-25 15:00 | P.PN ---
Subjective Progress Note Date: 05/25/24 Principal diagnosis: Non-ST segment elevation myocardial infarction. This is a 73-year-old white male with history of significant cardiac history including history of coronary artery disease, previous CABG, and previous aortic valve replacement, history of ischemic cardiomyopathy and LV dysfunction, chronic atrial fibrillation, history of aortic stenosis and previous aortic va lve replacement, peripheral vessel occlusive disease, and recent right common femoral thromboendarterectomy with patch angioplasty, left common femoral thromboendarterectomy, femoral to femoral bypass utilizing 8 mm PTFE bypass graft this was done by Dr. Antony on 04/04/2024 patient presented this time to the hospital with mostly complaining of chest pain, has been noticing this pain for the last 3 days, describes the pain across the chest, and radiates to the back associated with shortness of breath, diaphoresis. Patient was seen in the ER, and he was already seen by multiple consultants including cardiology, patient was noted to have Q waves in V3 V4 V5 V6, and he was also noted to have abnormal troponin level. Patient was also noted to be hypotensive requiring norepinephrine and the patient will need to be admitted to the ICU, hence this consult was initiated. Based on the presentation patient seems to be having cardiogenic shock with hypotension requiring vasopressor support. In addition the patient noted to have acute kidney injury and he was seen by nephrology on consultation. No cough, no fever, no chills, no hemoptysis, chest x-ray showed minimal pulmonary vascular congestion, no evidence of infiltrate/pneumonia labs were reviewed patient had WBC count of 15.4 hemoglobin 10.5 sodium of 129 potassium 4.0 BUN is 36 creatinine 2.21, troponin was 29,000's and BNP level was 24 ,400. Patient was seen by cardiology today while in the ER, and the recommendation was to get a 2D echocardiogram, aspirin, atorvastatin, hold losartan and amlodipine for low blood pressure, continue heparin and presently Eliquis is on hold, norepinephrine to be titrated to mean of above 60. Cardiology is considering cardiac catheterization on this patient once he is medically stable. Patient was seen today on 05/23/2024, remains in the ER as ER hold, patient waiting for a bed to go to ICU. His presentation was a presentation of acute non-ST elevation myocardial infarction, cardiogenic shock, and acute hypoxic respiratory failure, patient required norepinephrine for his hypotension he also required diuretics for his pulmonary edema, his ejection fraction was noted to be about 30 to 35%. Today the patient is feeling better, breathing easier, he is now on 6 L nasal cannula with O2 saturation 93%, he is off norepinephrine, still receiving Lasix he received a dose of Lasix again today, I gave him Lasix last night as I was notified because of his shortness of breath, and chest x-ray was showing some evidence of mild pulmonary edema. WBC count today is 14.5 hemoglobin 10.4, PTT is 42.5, electrolytes are normal, creatinine is 1.77, down from 2.21 on admission. Chest x-ray continues to show mild interstitial edema, strongly doubt pneumonia Progress note dated May 24, 2024. 73-year-old male admitted with a diagnosis of non-ST segment elevation myocardial infarction, congestive heart failure, and hypoxemia. The patient is seen today in room 368. The patient continues on nasal O2 at 9 L. He is on IV heparin. The patient appears in no distress. Current labs include a PTT of 43.6, sodium 133, potassium 3, chlorides 100, CO2 29, BUN 39, creatinine 1.90. Calcium is 7.9. Chest x-ray from May 23, reveals improved aeration. Progress note dated May 25, 2024. 73-year-old male seen in room 368. The patient is on the 5 L nasal cannula. He did use BiPAP, at nighttime, with settings of 12/6, 70%. The patient is on IV heparin. No fluids. The family members are in the room. Apparently they plan on transferring the patient to [facility]. We were asked to see the patient initially when he was in the emergency room, and he was hypotensive. The patient never required pressors, out of the ER, and the patient was admitted to the medical floor. Current labs include a white count 12.9, hemoglobin 8.3, hematocrit 24.6, and a platelet count of 182,000. PTT was 30.3. Sodium 132, potassium 3.9, chlorides 100, CO2 27, BUN 36, creatinine 2.08. Glucose was 116. Calcium 7.7. N-terminal proBNP was 45,400. Chest x-ray was consistent with cardiomegaly, and mild vascular congestion. Objective - Vital Signs Vital signs: Vital Signs Temp 98.3 F 05/25/24 08:00 Pulse 70 05/25/24 08:00 Resp 18 05/25/24 08:00 BP 107/69 05/25/24 08:00 Pulse Ox 92 L 05/25/24 08:55 FiO2 70 05/25/24 08:00 Intake & Output 05/24/24 05/25/24 05/25/24 18:59 06:59 18:59 Intake Total 247.84 139.711 393.259 Output Total 180 550 Balance 247.84 -40.289 -156.741 Weight 94 kg Intake: Intake, IV Titration 47.84 139.711 153.259 Amount Heparin Sod,Pork in 0.45% 47.84 139.711 153.259 NaCl 25,000 unit In 0.45 % NaCl 1 250ml.bag @ 11. 023 UNITS/KG/HR 10 mls/hr IV .Q24H [facility] Rx#: [id number] Oral 200 240 Output: Urine 180 550 Other: Voiding Method Urinal # Bowel Movements 1 - Exam No acute distress, oriented 3. Currently on 5 L high flow nasal O2. HEENT examination is grossly unremarkable. Mucous membranes are moist. No oral lesions. Neck supple. Full range of motion. No adenopathy thyromegaly or neck vein distention. Cardiovascular examination reveals regular rhythm rate. S1-S2 normal. No S3 or S4. A soft systolic murmur is noted. Lungs reveal bibasilar crackles. Breath sounds are equal. No rhonchi or wheezes noted. Abdomen soft bowel sounds are heard. No masses or tenderness. Extremities are intact. No cyanosis clubbing or edema. Skin is without rash or lesion. Neurologic examination is brief but nonfocal. - Labs CBC & Chem 7: 05/25/24 06:29 05/25/24 06:29 Labs: Abnormal Lab Results - Last 24 Hours (Table) 05/25/24 05/25/24 05/25/24 Range/Units 01:31 06:29 06:29 WBC 12.9 H (3.8-10.6) k/uL RBC 2.92 L (4.30-5.90) m/uL Hgb 8.3 L D (13.0-17.5) gm/dL Hct 24.6 L (39.0-53.0) % Neutrophils # 10.5 H (1.3-7.7) k/uL APTT (22.0-30.0) sec Sodium 132 L (137-145) mmol/L BUN 36 H (9-20) mg/dL Creatinine 2.08 H (0.66-1.25) mg/dL Glucose 116 H (74-99) mg/dL POC Glucose (mg/dL) 163 H (70-110) mg/dL Calcium 7.7 L (8.4-10.2) mg/dL Total Protein 5.3 L (6.3-8.2) g/dL Albumin 2.4 L (3.5-5.0) g/dL 05/25/24 Range/Units 06:29 WBC (3.8-10.6) k/uL RBC (4.30-5.90) m/uL Hgb (13.0-17.5) gm/dL Hct (39.0-53.0) % Neutrophils # (1.3-7.7) k/uL APTT 30.3 H (22.0-30.0) sec Sodium (137-145) mmol/L BUN (9-20) mg/dL Creatinine (0.66-1.25) mg/dL Glucose (74-99) mg/dL POC Glucose (mg/dL) (70-110) mg/dL Calcium (8.4-10.2) mg/dL Total Protein (6.3-8.2) g/dL Albumin (3.5-5.0) g/dL Microbiology - Last 24 Hours (Table) 05/22/24 12:19 Blood Culture - Preliminary Blood Assessment and Plan Assessment: Acute hypoxemic respiratory failure secondary to acute on chronic systolic congestive heart failure. Acute cardiogenic shock with chronic systolic CHF. Acute kidney injury secondary to hypotension, and ATN. Peripheral vessel occlusive disease. Hypotension, secondary to acute cardiogenic shock, resolved. History of CAD with previous CABG, 2017. History of bioprosthetic aortic valve replacement, 2017. Paroxysmal atrial fibrillation. Abdominal aortic aneurysm. Plan: Plan dated May 24, 2024. The patient initially was to be admitted to the intensive care unit, because of hypotension, and the need for vasopressors. The patient apparently came off the vasopressors, and was discharged to the cardiology floor instead. The patient is seen today in room 368. He continues on 9 L nasal cannula. He looks comfortable. He is not complaining of any difficulty or respiratory distress. He does continue with IV heparin. Labs, x-rays, and medications are reviewed. The patient is a DO NOT RESUSCITATE patient. We will continue to follow and make recommendations along the way. Plan dated May 25, 2024. The patient was seen today in room 368. The patient has been weaned down to 5 L nasal cannula. He did use BiPAP, with settings of 12/6, and 70%. The patient continues on IV heparin. The patient is a DO NOT RESUSCITATE patient. The patient is not receiving any IV fluids. The family informs us that the patient will likely be transferred to [facility]. Additional recommendations and suggestions are forthcoming. Prognosis is guarded. Time with Patient: Less than 30
[2024-05-25] MEDS: FUROSEMIDE 10 MG/ML 4 ML VIAL IV STA (16:07)
[2024-05-25 17:19] LABS: Basophils % (A) 0 %; Eosinophils # (A) 0.1 k/uL (0-0.7); Eosinophils % (A) 1 %; HCT 26.7 % (39.0-53.0); HGB 8.7 gm/dL (13.0-17.5); Lymphocytes # (A) 1.7 k/uL (1.0-4.8); Lymphocytes % (A) 16 %; MCH 27.4 pg (25.0-35.0); MCHC 32.6 g/dL (31.0-37.0); MCV 84.1 fL (80.0-100.0); Mean Platelet Volume 8.2; Monocytes # (A) 0.6 k/uL (0-1.0); Monocytes % (A) 6 %; Neutrophils # (A) 8.3 k/uL (1.3-7.7); Neutrophils % (A) 76 %; Platelet Count 188 k/uL (150-450); RBC 3.18 m/uL (4.30-5.90); RDW 14.9 % (11.5-15.5); WBC 10.9 k/uL (3.8-10.6)
[2024-05-25 21:46] VITALS: BP 95/63; PULSE 76; TEMP 98.5
--- NOTE | 2024-05-27 20:15 | CDI ---
Documentation Clarification Form Date: 05/27/2024 07:58:25 PM From: Ada Wilson Phone: Admit Date: 05/22/2024 05:37:00 AM Patient Name: Dimitrios Obrien Visit Number: [id number] Discharge Date: 05/25/2024 09:32:00 PM ATTENTION: The Clinical Documentation Specialists (CDI) and [facility] Coding Staff appreciate your assistance in clarifying documentation. Please respond to the clarification below the line at the bottom and electronically sign. The CDI & [facility] Coding staff will review the response and follow-up if needed. Please note: Queries are made part of the Legal Health Record. If you have any questions, please contact the author of this message via ITS. Doctor/Provider: Toña Chavarria Probable acute graft closure is documented per Progress Note 05/25 which may lack sufficient clinical evidence/support in the medical record. Additional clarification is requested. History/Risk Factors: NSTEMI, SHAVON, persistent A Fib, MR, HLD, PAD, DMII, CAD sp CABG& bioprostheticAVR, anemia Clinical Indicators: postf/f bypass and CHARITY common femoral artery thromboendarterectomy with patch angioplasty. Knownthrombosedleft popliteal artery aneurysm Echo: Moderate to severe LVdysfunctionwith an ejection fraction of 30-35% with apical hypokinesis. There is a normally functioningbioprosthetic valvein aortic position. Moderate to severePHTN. Moderatedilatation of the RV. Treatment: x [facility] where he is seen on a regular basis and if needed proceed withcoronary angiographywith possible mechanical support. He is in agreement to proceed. Continue supportive care at this point. Please clarify if acute graft closure is a valid diagnosis? [ ] Thrombosis due to cardiac prosthetic device/graft, initial encounter [ ] Other complication of vascular prosthesis device/graft, initial encounter [ ] Other complications of procedures, NEC, initial encounter): [x ] Other (please specify diagnosis) _He has a NSTEMI not related to his PAD [ ] Unable to determine (Template Last Revised: October 2023) MTDD
== END 2024-05-25 21:32 | disposition short-term general hospital (02) | DRG 280 ==
LOC: EC 03:17 → 3NCARDOBS 05:37 → 2SICU 06:16 → 3SCARD 05-23 14:24
PROVIDERS: ADMIT Hospitalist; ATTEND Hospitalist
PROC: 3E033XZ Introduction of Vasopressor into Peripheral Vein, Percutaneous Approach (ICD-10-PCS; principal; 2024-05-22)
PROC: 5A09357 Assistance with Respiratory Ventilation, Less than 24 Consecutive Hours, Continuous Positive Airway Pressure (ICD-10-PCS; 2024-05-25)
DX: I21.4 Non-ST elevation (NSTEMI) myocardial infarction (principal); I50.23 Acute on chronic systolic (congestive) heart failure; R57.0 Cardiogenic shock; N17.0 Acute kidney failure with tubular necrosis; J96.21 Acute and chronic respiratory failure with hypoxia; I74.3 Embolism and thrombosis of arteries of the lower extremities; E87.1 Hypo-osmolality and hyponatremia; I48.21 Permanent atrial fibrillation; Z66 Do not resuscitate; I27.20 Pulmonary hypertension, unspecified; Z95.1 Presence of aortocoronary bypass graft; I73.9 Peripheral vascular disease, unspecified; Z95.3 Presence of xenogenic heart valve; D64.9 Anemia, unspecified; Z95.820 Peripheral vascular angioplasty status with implants and grafts; I72.4 Aneurysm of artery of lower extremity; I71.40 Abdominal aortic aneurysm, without rupture, unspecified; I08.1 Rheumatic disorders of both mitral and tricuspid valves; I25.10 Atherosclerotic heart disease of native coronary artery without angina pectoris; E78.5 Hyperlipidemia, unspecified; E87.6 Hypokalemia; T50.2X5A Adverse effect of carbonic-anhydrase inhibitors, benzothiadiazides and other diuretics, initial encounter; T50.1X5A Adverse effect of loop [high-ceiling] diuretics, initial encounter; I25.5 Ischemic cardiomyopathy; Z87.891 Personal history of nicotine dependence; Z95.5 Presence of coronary angioplasty implant and graft; Z86.73 Personal history of transient ischemic attack (TIA), and cerebral infarction without residual deficits; I25.2 Old myocardial infarction; Z79.82 Long term (current) use of aspirin; Z79.899 Other long term (current) drug therapy; Z79.01 Long term (current) use of anticoagulants
CPT/HCPCS: 36415; 36600; 71045; 76770; 80048; 80053; 80061; 81001; 82805; 83735; 83880; 84484; 85025; 85610; 85730; 87040; 93005; 93306; 94660; 94760; 96365; 96366; 96375; 96376; 99291